=== PATIENT | female | born 1955 | race Caucasian/White ===

== ENCOUNTER 2018-12-27 10:50 | Emergency (ER) | payer MEDICARE, OTHER ==
[~2018-12-27] VITALS: Ht 162.6 cm; Wt 99.8 kg
[2018-12-27] MEDS ORDERED: Aspir 8181 MG PO (11:30)
[2018-12-27] MEDS ORDERED: OXYB5 PO (11:30)
[2018-12-27] MEDS ORDERED: ATOR10 PO (11:31)
[2018-12-27] MEDS ORDERED: MELA3 PO (11:31)
[2018-12-27] MEDS ORDERED: PARO20 PO (11:32)
[2018-12-27] MEDS ORDERED: QUET25 PO ×2 (11:34→11:35)
[2018-12-27] MEDS ORDERED: CARV25 PO (11:36)
[2018-12-27] MEDS ORDERED: BACL10 PO (11:36)
[2018-12-27] MEDS ORDERED: CYCL10 PO (11:37)
[2018-12-27] MEDS ORDERED: BUSP10 PO (11:37)
[2018-12-27] MEDS ORDERED: GABA800 PO (11:38)
[2018-12-27] MEDS ORDERED: FAMO20 PO (11:38)
[2018-12-27] MEDS ORDERED: HYDRA25 PO (11:39)
[2018-12-27] MEDS ORDERED: IBUP400 PO (11:39)
[2018-12-27] MEDS ORDERED: Norco 10-325 T1 EACH PO (11:40)
[2018-12-27] MEDS ORDERED: ONDA4ODT MM (11:40)
[2018-12-27] MEDS ORDERED: MIRALAX17 GM PO (11:40)
== END 2018-12-27 12:25 | disposition home or self-care (01) ==
LOC: ER 10:50
DX: F91.9 Conduct disorder, unspecified (principal); F17.200 Nicotine dependence, unspecified, uncomplicated; Z88.0 Allergy status to penicillin; Z88.8 Allergy status to other drugs, medicaments and biological substances; Z88.1 Allergy status to other antibiotic agents; Z79.899 Other long term (current) drug therapy; Z79.82 Long term (current) use of aspirin; Z79.891 Long term (current) use of opiate analgesic
CPT/HCPCS: 99283

== ENCOUNTER 2018-12-27 16:10 | Observation (INO) | payer MEDICARE, OTHER ==
[~2018-12-27] VITALS: Ht 167.6 cm; Wt 98.2 kg
[~2018-12-27 16:10] MED LIST: ATOR10 PO; Aspir 8181 MG PO; BACL10 PO; BUSP10 PO; CARV25 PO; CYCL10 PO; FAMO20 PO; GABA800 PO; HYDRA25 PO; IBUP400 PO; MELA3 PO; MIRALAX17 GM PO; Norco 10-325 T1 EACH PO; ONDA4ODT MM; OXYB5 PO; PARO20 PO; QUET25 PO
[2018-12-27 17:46] LABS: BASOPHILS ABSOLUTE AUTO 0.05 K/mm3 (0.00-0.23); BASOPHILS PERCENT AUTO 1 % (0-2); EOSINOPHILS ABSOLUTE AUTO 0.04 K/mm3 (0.00-0.68); EOSINOPHILS PERCENT AUTO 0 % (0-6); Hematocrit 45.9 % (33.0-51.0); Hemoglobin 15.2 g/dL (11.5-16.0); IMMATURE GRAN ABSOLUTE AUTO 0.05 K/mm3 (0.00-0.10); IMMATURE GRAN PERCENT AUTO 1 % (0-1); LYMPHOCYTES ABSOLUTE AUTO 1.63 K/mm3 (0.84-5.20); LYMPHOCYTES PERCENT AUTO 16 % (21-46); MONOCYTES ABSOLUTE AUTO 0.67 K/mm3 (0.16-1.47); MONOCYTES PERCENT AUTO 6 % (4-13); Mean Corpuscular HGB 28.9 pg (26.0-34.0); Mean Corpuscular HGB Conc 33.1 g/dL (31.5-36.5); Mean Corpuscular Volume 87 fL (80-100); Mean Platelet Volume 10.2 fL (9.1-12.4); NEUTROPHILS ABSOLUTE AUTO 8.01 K/mm3 (1.96-9.15); NEUTROPHILS PERCENT AUTO 77 % (41-73); Platelet Count 164 K/mm3 (150-400); RDW Standard Deviation 41.1 fL (35.1-46.3); Red Blood Cell Count 5.26 M/mm3 (3.80-5.20); White Blood Cell Count 10.45 K/mm3 (4.00-11.30)
[2018-12-27 18:04] LABS: Source, Urine Catheter
[2018-12-27 18:07] LABS: Ethanol (Alcohol), Blood, Med <3 mg/dL; Salicylate 1.9 mg/dL (2.8-20.0)
[2018-12-27 18:08] LABS: Alanine Aminotransfer (ALT/SGP 17 U/L (12-78); Albumin/Globulin Ratio 0.9 (0.8-1.8); Alk Phos 100 U/L (50-136); Anion Gap 6 mmol/L (6-16); Aspartate Aminotrans (AST/SGOT 20 U/L (12-37); Bilirubin, Total 0.4 mg/dL (0.1-1.0); Blood Urea Nitrogen 13 mg/dL (8-24); Bun/Creatinine Ratio 19.8 (12.0-20.0); CO2, Blood 27 mmol/L (21-32); Calcium, Blood 9.9 mg/dL (8.5-10.1); Chloride, Blood 108 mmol/L (98-108); Creatinine, Blood 0.66 mg/dL (0.40-1.00); Globulin, Blood 4.7 g/dL (2.2-4.0); Glomerular Filtration Rate >60 (60-); Glucose, Blood 116 mg/dL (70-99); Potassium, Blood 3.9 mmol/L (3.5-5.5); Sodium, Blood 141 mmol/L (136-145); Total Protein, Blood 8.7 g/dL (6.4-8.2)
[2018-12-27 18:18] LABS: Acetaminophen, Random <2.0 ug/mL (10.0-30.0)
[2018-12-27 18:41] LABS: U Amphetamine Screen Not Detected; U Barbituate Screen Not Detected; U Benzodiazapine Screen Not Detected; U Buprenorphine Screen Not Detected; U Cannabinoids Screen Not Detected; U Cocaine Screen Not Detected; U Methadone Screen Not Detected; U Methamphetamine Screen Not Detected; U Opiates Screen DETECTED; U Oxycodone Screen Not Detected; U Phencyclidine Screen Not Detected; U Propoxyphene Screen Not Detected
[2018-12-27 18:47] LABS: Bilirubin, Urine Neg (Neg); Blood, Urine 4+ (Neg); Glucose Qualitative, Urine Neg (Neg); Ketones, Urine Neg (Neg); Leukocyte Esterase, Urine 1+ (Neg); Nitrite, Urine Neg (Neg); Protein, Urine 3+ (Neg); Urobilinogen, Urine NORM (Normal)
[2018-12-27 18:53] LABS: Appearance, Urine Hazy (Clear); Color, Urine Yellow (P-Yellow)
[2018-12-27 18:54] LABS: Bacteria Mod /hpf; Squamous Epithelial Cells Few /hpf (Few)
[2018-12-28 01:11] LABS: Source, Urine Catheter
--- NOTE | 2018-12-28 01:28 | NUR ---
ADMIT NOTE: PT ARRIVED TO UNIT VIA GURNEY AT APPRX 2039. PT WITH HTN AND TACHYCARDIA, PACED RHYTHM 120'S. . DR. MANSFIELD AT BEDSIDE UPON ADMIT. PT WAS AT FIRST COOPERATIVE BUT WAS PARANOID AND LEARY OF STAFF. PT WAS WITH RAPID NON-SENSICAL SPEECH AND FREQUENTLY TALKED ABOUT DIFFERENT WAYS OF DYING. PT REPEATED THAT SHE DIDN'T WANT HER DAUGHTER TO WATCH HER . THIS RN AND COMPRESSOR MECHANIC SPENT SEVERAL MINUTES TRYING TO CONSOLE PT AND REDIRECTION. PT WAS ASSISTED UP TO BSC SHORTLY AFTER ADMIT BUT DEMANDED TO, "SHIT ON THE BED". PT STOOD UP AND SAT ON EDGE OF BED AND REFUSED ANY HELP OR DIRECTION FROM RN'S TO ASSIST BACK INTO BED. PT PULLED APART TELE MONITOR CABLE TAB AND OXYMETER FROM HER HAND. WITH COMPRESSOR MECHANIC AND THIS RN WAS ABLE TO ADMINISTER HALDOL AND HYDRALAZINE WITH NO IMPROVEMENT IN AGITATION NOR BP. PT EVENTUALLY ALLOWED THESE TWO RN'S TO ASSIST PT BACK INTO BED BUT PT, AGAIN, BECAME VERY AGITATED AND BEGAN PULLING OFF LINES AND TRIED BITING STAFF. A KATIE MEEK WAS CALLED, SECURITY AND STAFF ASSIST. DR. MARIE NOTIFIED. PT CHANGE TO ICU STATUS AND WAS PLACED ON PRECEDEX gtt. PRECEDEX TITRATED FROM 2mcg/kg/hr TO 5mcg/kg/hr WITH SOME IMPROVEMENT TO PT AGITATION. PT VERBALIZED SINCE ADMIT THE NEED TO URINATE BUT WITH HER CONFUSION AND AGITATION WOULD/COULD NOT USE BEDPAN. BARRIGA CATHETER WAS ORDERED AND ATTMEPTED PLACEMENT, HOWEVER, PT TRIED KICKING AT THIS RN AND COMPRESSOR MECHANIC. PT WAS GIVEN ATIVAN 2mg AND WAS LATER LESS AGITATED AND WAS DIRECTABLE. BARRIGA CATHETER PLACED WITH DARK YELLOW SLIGHTLY CLOUDY URINE OUT. U/A SENT PER PROTOCOL. CURRENTLY PT SLEEPING, PRECEDEX TITRATED DOWN TO 4mcg/kg/hr. VSS. CALL LIGHT NEXT TO HAND. WILL CONTINUE TO MONITOR.
[2018-12-28 01:29] LABS: Bilirubin, Urine Neg (Neg); Blood, Urine 4+ (Neg); Glucose Qualitative, Urine Neg (Neg); Ketones, Urine 1+ (Neg); Leukocyte Esterase, Urine Neg (Neg); Nitrite, Urine Neg (Neg); Protein, Urine 2+ (Neg); Urobilinogen, Urine NORM (Normal)
[2018-12-28 01:31] LABS: Appearance, Urine Clear (Clear); Color, Urine Pale Yellow (P-Yellow)
[2018-12-28 01:32] LABS: Bacteria Few /hpf; Squamous Epithelial Cells Few /hpf (Few); White Blood Cells, Urine 0-2 /hpf (0-5)
[2018-12-28 04:06] LABS: Hematocrit 43.5 % (33.0-51.0); Hemoglobin 14.4 g/dL (11.5-16.0); Mean Corpuscular HGB 29.1 pg (26.0-34.0); Mean Corpuscular HGB Conc 33.1 g/dL (31.5-36.5); Mean Corpuscular Volume 88 fL (80-100); Mean Platelet Volume 10.2 fL (9.1-12.4); Platelet Count 146 K/mm3 (150-400); Red Blood Cell Count 4.94 M/mm3 (3.80-5.20); White Blood Cell Count 9.46 K/mm3 (4.00-11.30)
[2018-12-28 04:31] LABS: Alanine Aminotransfer (ALT/SGP 18 U/L (12-78); Albumin, Blood 3.6 g/dL (3.4-5.0); Albumin/Globulin Ratio 0.8 (0.8-1.8); Alk Phos 87 U/L (50-136); Anion Gap 6 mmol/L (6-16); Aspartate Aminotrans (AST/SGOT 13 U/L (12-37); Bilirubin, Total 0.5 mg/dL (0.1-1.0); Blood Urea Nitrogen 12 mg/dL (8-24); Bun/Creatinine Ratio 18.9 (12.0-20.0); CO2, Blood 27 mmol/L (21-32); Calcium, Blood 9.2 mg/dL (8.5-10.1); Chloride, Blood 109 mmol/L (98-108); Creatinine, Blood 0.63 mg/dL (0.40-1.00); Globulin, Blood 4.3 g/dL (2.2-4.0); Glomerular Filtration Rate >60 (60-); Glucose, Blood 115 mg/dL (70-99); Potassium, Blood 3.4 mmol/L (3.5-5.5); Sodium, Blood 142 mmol/L (136-145); Total Protein, Blood 7.9 g/dL (6.4-8.2)
--- NOTE | 2018-12-28 04:52 | NUR ---
PT QUIETLY SLEEPING REST OF NOC SINCE PRECEDEX AND ATIVAN ADMIN. PRECEDEX CURRENTLY AT 0.3mcg/kg/hr. PT ANSWERS TO NAME BUT STATES, "WAIT A MINUTE" WHEN ASKED TO OPEN EYES. ITA. VSS. TEMP 97.9
--- NOTE | 2018-12-28 06:11 | NUR ---
PRECEDEX TITRATE TO 2mcg/kg/hr: AT 0500, PRECEDEX TITRATED DOWN. PT AWAKENED AND WAS PLEASANT BUT COULD NOT ANSWER QUESTIONS APPROPRIATELY. PT STATED HER DOG'S NAMES THEN FELL ASLEEP. VSS.
--- NOTE | 2018-12-28 08:30 | NUR ---
ASSUMED CARE: REPORT RECEIVED FROM BRIAN Cooper RN. ASSUMED CARE OF THIS PT AT APPROX 0700. ON ASSESSMENT, THE PT IS NOW PLEASANT, COOPERATIVE & ANSWERING QUESTIONS APPROPRIATELY. BILAT SOFT WRIST RESTRAINTS REMOVED AT 0800. PT IS AGREEABLE TO RESTRAINTS BEING REMOVED & VERBALIZES UNDERSTANDING THAT THEY WILL NEED TO BE REPLACED IF SHE AGAIN ATTEMPTS TO REMOVE MONITORS, PIVs OR VERBALLY THREATENS STAFF MEMBERS. LS ARE DIM IN BASES, PT ON RA W/ O2 SATS > 92%. MONITOR SHOWS SR-ST W/ HR 80-100s, BP SLIGHTLY LOW THIS AM & PRECEDEX HAS BEEN PLACED ON STANDBY. PT HAS NO GI COMPLAINTS, BARRIGA PATENT/ DRAINING. WILL CONTINUE TO MONITOR & UPDATE NEEDED.
--- NOTE | 2018-12-28 14:15 | NUR ---
DR ROSENBERG: PROVIDER AT BEDSIDE TO SEE PT. THE PT IS A&O TO TIME, DATE, SELF & STAFF, CONFUSED REGARDING LOCATION. PROVIDER FEELS THAT THE PT HAS IMPROVED & CAN NOW BE MEDICAL STATUS W/ NO TELE, ORDERS PLACED. WILL CONTINUE TO MONITOR & UPDATE NEEDED.
--- NOTE | 2018-12-28 17:12 | NUR ---
SHIFT SUMMARY: NO ACUTE CHANGES SINCE PRIOR UPDATES. PT REMAINS MOSTLY A&O, FORGETFUL TO LOCATION & NEEDING OCCASIONAL REORIENTATION. SHE DOES NOT REMEMBER COMING TO THE HOSPITAL OR THE EVENTS PRIOR TO ADMISSION THAT OCCURED AT [facility]. RESTRAINTS HAVE BEEN OFF SINCE 0800 THIS AM & PT HAS TOLERATED WELL, NOT PULLING AT LINES/ TUBES OR ATTEMPTING TO GET OOB W/O ASSIST. LS ARE CLEAR T/O, PT ON RA W/ O2 SATS > 92%. HEART MONITOR HAS BEEN REMOVED PT IS NOW MEDICAL STATUS. BP REMAINS STABLE. BT x4, PT HAS HAD NUMEROUS SOFT BMs WHICH SHE STS IS "NORMAL" FOR HER. BARRIGA REMOVED THIS AFTERNOON & PT VOIDING W/O DIFFICULTY USING BSC & SBA TO GET OOB. WILL CONTINUE TO MONITOR & REPORT OFF TO ONCOMING RN.
--- NOTE | 2018-12-28 23:04 | NUR ---
ASSUMED CARE OF PT, REPORT RCV'D FROM YOON WOMACK. PT ALERT TO SELF, CONFUSED ON DATE/LOCATION/SITUATION, OFTEN FORGETFUL AND PARANOID. PT BELIEVES SHE IS IN "[place]", BELIEVES THAT IT IS "FEBRUARY" AND ISN'T SURE WHY SHE IS "HERE". PT REORIENTED BUT QUICKLY FORGETS. PT FIXATED ON HER CLOTHES AND BELIEVES THAT SOMEONE "STOLE THEM". PT REMINDED THAT SHE CAME FROM [facility]. PT ASKING FOR PAIN MEDICATION D/T CHRONIC HEADACHE, REMINDED THAT SHE CAN HAVE HER NEXT PAIN PILL AT MIDNIGHT, PT QUICKLY FORGETS AND ASKS AGAIN. PT STANDBY ASSIST TO USE TOILET, PT APPEARS STEADY ON HER FEET, USES WALKER. PT REMINDED TO USE CALL LIGHT FOR ASSISTANCE WITH AMBULATING, PT APPEARS IMPULSIVE. BED IN LOW/LOCKED POSITION AND BED EXIT ALARM ON. VSS. PLEASE SEE FULL SHIFT ASSESSMENT.
[2018-12-29 05:20] LABS: BASOPHILS ABSOLUTE AUTO 0.06 K/mm3 (0.00-0.23); BASOPHILS PERCENT AUTO 1 % (0-2); EOSINOPHILS ABSOLUTE AUTO 0.12 K/mm3 (0.00-0.68); EOSINOPHILS PERCENT AUTO 1 % (0-6); Hematocrit 43.8 % (33.0-51.0); Hemoglobin 14.3 g/dL (11.5-16.0); IMMATURE GRAN ABSOLUTE AUTO 0.03 K/mm3 (0.00-0.10); IMMATURE GRAN PERCENT AUTO 0 % (0-1); LYMPHOCYTES PERCENT AUTO 37 % (21-46); MONOCYTES ABSOLUTE AUTO 0.91 K/mm3 (0.16-1.47); MONOCYTES PERCENT AUTO 11 % (4-13); Mean Corpuscular HGB 29.5 pg (26.0-34.0); Mean Corpuscular HGB Conc 32.6 g/dL (31.5-36.5); NEUTROPHILS PERCENT AUTO 50 % (41-73); Platelet Count 155 K/mm3 (150-400); RDW Coefficient Variation 13.1 % (11.7-14.2); RDW Standard Deviation 42.7 fL (35.1-46.3); Red Blood Cell Count 4.84 M/mm3 (3.80-5.20); White Blood Cell Count 8.42 K/mm3 (4.00-11.30)
[2018-12-29 05:21] LABS: Mean Corpuscular Volume 91 fL (80-100)
[2018-12-29 05:35] LABS: Albumin, Blood 3.7 g/dL (3.4-5.0); Anion Gap 5 mmol/L (6-16); Blood Urea Nitrogen 15 mg/dL (8-24); Bun/Creatinine Ratio 19.9 (12.0-20.0); CO2, Blood 26 mmol/L (21-32); Calcium, Blood 9.2 mg/dL (8.5-10.1); Chloride, Blood 110 mmol/L (98-108); Creatinine, Blood 0.76 mg/dL (0.40-1.00); Glomerular Filtration Rate >60 (60-); Glucose, Blood 98 mg/dL (70-99); Phosphorus, Blood 3.9 mg/dL (2.5-4.9); Potassium, Blood 3.7 mmol/L (3.5-5.5); Sodium, Blood 141 mmol/L (136-145)
--- NOTE | 2018-12-29 07:25 | NUR ---
SHIFT SUMMARY NO ACUTE CHANGES OVERNIGHT. PT REMAINS CONFUSED AND ORIENTED ONLY TO SELF. PT COOPERATIVE WITH CARE, PLEASANT AND REDIRECTABLE. PT ABLE TO AMBULATE WITH SBA TO USE TOILET. PT USES WALKER AND IS STEADY ON HER FEET. VSS T/O SHIFT. WILL REPORT TO DAYSHIFT NURSE.
--- NOTE | 2018-12-29 07:54 | NUR ---
ASSUMED CARE OF PT. PT IS SLEEPING AT THIS TIME. OPENING EYES TO VOICE. PT CLAIMED THAT SHE HAS NOT SLEPT LAST NIGHT. ORIENTED TO SELF, LOCATION AND TIME.
--- NOTE | 2018-12-29 13:18 | NUR ---
PT SEEN BY DR. SHAKIRA Garcia UPDATED HER OF PT'S STATUS.
--- NOTE | 2018-12-29 16:38 | NUR ---
DR. ANDERSON CAME BY TO TALK TO THE FAMILY.
--- NOTE | 2018-12-29 17:44 | NUR ---
REPORT GIVEN TO ROSANGELA PANIAGUA WILL BE TRANSFERED TO ROOM 348.
--- NOTE | 2018-12-29 19:21 | NUR ---
SHIFT SUMMARY: PT WAS TRANSFERED TO ROOM 348 @ 1805. PT IS STILL FORGETFUL AT TIMES BUT MOSTLY ORIENTED. AWAITING FOR PLACEMENT.PT'S GROUP DIRECTOR, JAYSON WITH [facility] HAS TRIED TO [facility]S GROUP DIRECTOR TO ARRANGE FOR PT PLACEMENT. SPOKE WITH SHRUTHI GASCA TO CALL JAYSON TOMORROW AND DISCUSS PT'S PLACEMENT. PT HAS BEEN COOPERATIVE THE WHOLE DAY. VERY PLEASANT AND USES HER CALL LIGHT APPROPRIATELY. PT HAS BEEN STEADY ON HER FEET USING A WALKER.
--- NOTE | 2018-12-30 12:37 | NUR ---
FACILITY DISCHARGE DISCHARGE PACKET GIVEN TO SOCIAL WORK CASE MANAGER. PATIENT DISCHARGED TO [facility]. REPORT CALLED TO RECIEVING NURSE. PATIENT TRANSPORTED VIA WHEELCHAIR TRANSPORT. IV'S REMOVED WITHOUT DIFFICULTY.
== END 2018-12-30 12:15 ==
LOC: ER 16:10 → ICUW 16:11 → ICUE 16:11 → MEDS 12-29 18:14 → ENPENDDIS 12-30 11:14 → MEDS 12-30 12:15
PROVIDERS: Emergency Medicine; Family Medicine; ADMIT Internal Medicine
DX: F23 Brief psychotic disorder (principal); G93.40 Encephalopathy, unspecified; I10 Essential (primary) hypertension; E78.5 Hyperlipidemia, unspecified; E87.6 Hypokalemia; F32.9 Major depressive disorder, single episode, unspecified; K21.9 Gastro-esophageal reflux disease without esophagitis; G62.9 Polyneuropathy, unspecified; Z79.82 Long term (current) use of aspirin; Z79.899 Other long term (current) drug therapy; Z88.0 Allergy status to penicillin; Z88.6 Allergy status to analgesic agent; Z88.1 Allergy status to other antibiotic agents; Z88.8 Allergy status to other drugs, medicaments and biological substances; Z86.79 Personal history of other diseases of the circulatory system; Z98.2 Presence of cerebrospinal fluid drainage device
CPT/HCPCS: 36415; 51702; 70250; 70450; 71045; 74018; 80053; 80069; 81001; 84145; 85025; 85027; 87086; 87147; 93005; 93010; 96365; 96372; 96375; 96376; 99285-25; G0378; G0480; J0360; J0696; J1630; J1650; J2060; J2250; J3480; J3486; J7030; J7050

== ENCOUNTER → 2019-06-09 | Outpatient (CLI) | payer MEDICARE, OTHER ==
[2019-06-09 11:21] LABS: CHOL/HDL RATIO 6.2; Cholesterol 154 mg/dL (50-200); HDL Cholesterol 25 mg/dL (>39); LDL/HDL RATIO Unable to Calculate; Low Density Lipoprotein Chol Unable to Calculate mg/dL (0-110); Triglycerides 440 mg/dL (30-160); Very Low Density Lipoprot Chol Unable to Calculate mg/dL (6-32)
== END | disposition home or self-care (01) ==
LOC: LAB UVN 07:48 → EDSTATUS 12:59
PROVIDERS: Family Medicine
DX: E78.5 Hyperlipidemia, unspecified (principal)
CPT/HCPCS: 36415; 80061

== ENCOUNTER → 2019-12-03 | Outpatient (CLI) | payer MEDICARE, OTHER ==
[2019-12-03 11:42] LABS: Anion Gap 6 mmol/L (6-16); Blood Urea Nitrogen 13 mg/dL (8-24); Bun/Creatinine Ratio 18.1 (12.0-20.0); CO2, Blood 31 mmol/L (21-32); Chloride, Blood 109 mmol/L (98-108); Creatinine, Blood 0.72 mg/dL (0.40-1.00); Glomerular Filtration Rate >60 (60-); Glucose, Blood 127 mg/dL (70-99); Potassium, Blood 3.6 mmol/L (3.5-5.5); Sodium, Blood 146 mmol/L (136-145)
== END | disposition home or self-care (01) ==
LOC: LAB UVN 10:38 → EDSTATUS 11:14
PROVIDERS: Family Medicine
DX: Z13.1 Encounter for screening for diabetes mellitus (principal); I11.0 Hypertensive heart disease with heart failure; I50.42 Chronic combined systolic (congestive) and diastolic (congestive) heart failure; R73.9 Hyperglycemia, unspecified
CPT/HCPCS: 80048; 83036

== ENCOUNTER → 2020-04-27 | Outpatient (CLI) | payer MEDICARE, OTHER ==
[~2020-04-27] MED LIST changes: +AMLO5 PO; +ASPI81CH PO; +Aspercreme He70.8 GM TOP; +Ativan1 MG PO; +BISA5EC PO; +CARV6.25 PO; +CEFP200 PO; +CYCLOBENZAPRINE5 MG PO; +GABA300 PO; -GABA800 PO; +HYDR1TAB94 PO; +LIDOCAINE1 EAC1 TOP; +NYSTATIN15 GM TOP; -Norco 10-325 T1 EACH PO; +OLANZAPINE PO; +PARO10 PO; -PARO20 PO; +Seroquel Xr50 MG PO; +TEGRETOL PO; +VRAYLAR3 MG PO; +ZEBUTAL 50-3251 EAC1 PO
[2020-04-27 10:49] LABS: Appearance, Urine Hazy (Clear); Bilirubin, Urine Neg (Neg); Blood, Urine 3+ (Neg); Color, Urine Yellow (P-Yellow); Glucose Qualitative, Urine Neg (Neg); Ketones, Urine Neg (Neg); Leukocyte Esterase, Urine 3+ (Neg); Nitrite, Urine Pos (Neg); Protein, Urine 2+ (Neg); Specific Gravity, Urine 1.015 (1.003-1.022); Urobilinogen, Urine NORM (Normal)
[2020-04-27 11:06] LABS: Bacteria Many /hpf; Red Blood Cells, Urine 0-2 /hpf (0-2); Squamous Epithelial Cells Few /hpf (Few)
== END | disposition home or self-care (01) ==
LOC: LAB UVN 10:22 → EDSTATUS 13:04
PROVIDERS: Family Medicine
DX: N39.0 Urinary tract infection, site not specified (principal)
CPT/HCPCS: 81001; 87077; 87086; 87186

== ENCOUNTER → 2020-05-09 | Outpatient (CLI) | payer MEDICARE, OTHER ==
[2020-05-09 07:20] LABS: BASOPHILS ABSOLUTE AUTO 0.07 K/mm3 (0.00-0.23); BASOPHILS PERCENT AUTO 1 % (0-2); EOSINOPHILS ABSOLUTE AUTO 0.12 K/mm3 (0.00-0.68); EOSINOPHILS PERCENT AUTO 2 % (0-6); Hematocrit 39.2 % (33.0-51.0); IMMATURE GRAN ABSOLUTE AUTO 0.04 K/mm3 (0.00-0.10); IMMATURE GRAN PERCENT AUTO 1 % (0-1); LYMPHOCYTES ABSOLUTE AUTO 2.22 K/mm3 (0.84-5.20); LYMPHOCYTES PERCENT AUTO 29 % (21-46); MONOCYTES ABSOLUTE AUTO 0.73 K/mm3 (0.16-1.47); MONOCYTES PERCENT AUTO 10 % (4-13); Mean Corpuscular HGB 30.4 pg (26.0-34.0); Mean Corpuscular HGB Conc 33.2 g/dL (31.5-36.5); Mean Corpuscular Volume 92 fL (80-100); Mean Platelet Volume 10.4 fL (9.1-12.4); NEUTROPHILS PERCENT AUTO 59 % (41-73); Platelet Count 191 K/mm3 (150-400); RDW Standard Deviation 42.6 fL (35.1-46.3); Red Blood Cell Count 4.28 M/mm3 (3.80-5.20); White Blood Cell Count 7.68 K/mm3 (4.00-11.30)
[2020-05-09 07:34] LABS: Anion Gap 4 mmol/L (6-16); Blood Urea Nitrogen 6 mg/dL (8-24); Bun/Creatinine Ratio 9.1 (12.0-20.0); CO2, Blood 30 mmol/L (21-32); Calcium, Blood 8.4 mg/dL (8.5-10.1); Chloride, Blood 110 mmol/L (98-108); Creatinine, Blood 0.66 mg/dL (0.40-1.00); Glomerular Filtration Rate >60 (60-); Glucose, Blood 106 mg/dL (70-99); Potassium, Blood 3.8 mmol/L (3.5-5.5); Sodium, Blood 144 mmol/L (136-145)
== END | disposition home or self-care (01) ==
LOC: LAB UVN 07:11 → EDSTATUS 13:05
PROVIDERS: Family Medicine
DX: F31.62 Bipolar disorder, current episode mixed, moderate (principal)
CPT/HCPCS: 80048; 85025; 86038

== ENCOUNTER → 2020-05-13 | Outpatient (CLI) | payer MEDICARE, OTHER ==
[2020-05-13 06:03] LABS: Source, Urine Clean Catch
[2020-05-13 06:10] LABS: BASOPHILS ABSOLUTE AUTO 0.07 K/mm3 (0.00-0.23); BASOPHILS PERCENT AUTO 1 % (0-2); EOSINOPHILS ABSOLUTE AUTO 0.13 K/mm3 (0.00-0.68); EOSINOPHILS PERCENT AUTO 1 % (0-6); Hematocrit 44.2 % (33.0-51.0); Hemoglobin 14.3 g/dL (11.5-16.0); IMMATURE GRAN ABSOLUTE AUTO 0.06 K/mm3 (0.00-0.10); IMMATURE GRAN PERCENT AUTO 1 % (0-1); LYMPHOCYTES ABSOLUTE AUTO 2.49 K/mm3 (0.84-5.20); LYMPHOCYTES PERCENT AUTO 26 % (21-46); MONOCYTES ABSOLUTE AUTO 0.92 K/mm3 (0.16-1.47); MONOCYTES PERCENT AUTO 10 % (4-13); Mean Corpuscular HGB 29.9 pg (26.0-34.0); Mean Corpuscular HGB Conc 32.4 g/dL (31.5-36.5); Mean Corpuscular Volume 92 fL (80-100); Mean Platelet Volume 10.8 fL (9.1-12.4); NEUTROPHILS ABSOLUTE AUTO 5.88 K/mm3 (1.96-9.15); NEUTROPHILS PERCENT AUTO 62 % (41-73); Platelet Count 189 K/mm3 (150-400); RDW Coefficient Variation 12.8 % (11.7-14.2); Red Blood Cell Count 4.79 M/mm3 (3.80-5.20); White Blood Cell Count 9.55 K/mm3 (4.00-11.30)
[2020-05-13 06:17] LABS: Bilirubin, Urine Neg (Neg); Blood, Urine 2+ (Neg); Glucose Qualitative, Urine Neg (Neg); Ketones, Urine Neg (Neg); Leukocyte Esterase, Urine Neg (Neg); Nitrite, Urine Neg (Neg); Protein, Urine 1+ (Neg); Urobilinogen, Urine NORM (Normal); pH, Urine 6.5 (5.0-8.0)
[2020-05-13 06:31] LABS: Anion Gap 10 mmol/L (6-16); Blood Urea Nitrogen 10 mg/dL (8-24); Bun/Creatinine Ratio 15.1 (12.0-20.0); CO2, Blood 27 mmol/L (21-32); Calcium, Blood 9.3 mg/dL (8.5-10.1); Chloride, Blood 108 mmol/L (98-108); Creatinine, Blood 0.66 mg/dL (0.40-1.00); Glomerular Filtration Rate >60 (60-); Glucose, Blood 95 mg/dL (70-99); Potassium, Blood 3.9 mmol/L (3.5-5.5); Sodium, Blood 145 mmol/L (136-145)
[2020-05-13 06:39] LABS: Appearance, Urine Clear (Clear); Bacteria Not Seen /hpf; Color, Urine Yellow (P-Yellow); Red Blood Cells, Urine 0-2 /hpf (0-2); Squamous Epithelial Cells Not Seen /hpf (Few); White Blood Cells, Urine Not Seen /hpf (0-5)
== END | disposition home or self-care (01) ==
LOC: LAB UVN 06:00 → EDSTATUS 13:07
PROVIDERS: Family Medicine
DX: F31.62 Bipolar disorder, current episode mixed, moderate (principal)
CPT/HCPCS: 80048; 81001; 85025

== ENCOUNTER 2020-05-18 20:32 | Emergency (ER) | payer MEDICARE, OTHER ==
[~2020-05-18] VITALS: Ht 165.1 cm; Wt 104.3 kg
[~2020-05-18 20:32] MED LIST changes: -AMLO5 PO; -ASPI81CH PO; -Aspercreme He70.8 GM TOP; -Aspir 8181 MG PO; -Ativan1 MG PO; -BISA5EC PO; -CARV25 PO; -CARV6.25 PO; -CEFP200 PO; -CYCLOBENZAPRINE5 MG PO; -GABA300 PO; -HYDR1TAB94 PO; -LIDOCAINE1 EAC1 TOP; -NYSTATIN15 GM TOP; -OLANZAPINE PO; -PARO10 PO; -Seroquel Xr50 MG PO; -TEGRETOL PO; -VRAYLAR3 MG PO; -ZEBUTAL 50-3251 EAC1 PO
[2020-05-18 21:01] LABS: BASOPHILS ABSOLUTE AUTO 0.04 K/mm3 (0.00-0.23); BASOPHILS PERCENT AUTO 0 % (0-2); EOSINOPHILS ABSOLUTE AUTO 0.08 K/mm3 (0.00-0.68); EOSINOPHILS PERCENT AUTO 1 % (0-6); Hematocrit 41.8 % (33.0-51.0); Hemoglobin 13.8 g/dL (11.5-16.0); IMMATURE GRAN ABSOLUTE AUTO 0.04 K/mm3 (0.00-0.10); IMMATURE GRAN PERCENT AUTO 0 % (0-1); LYMPHOCYTES ABSOLUTE AUTO 1.58 K/mm3 (0.84-5.20); LYMPHOCYTES PERCENT AUTO 17 % (21-46); MONOCYTES ABSOLUTE AUTO 0.65 K/mm3 (0.16-1.47); MONOCYTES PERCENT AUTO 7 % (4-13); Mean Corpuscular HGB 29.9 pg (26.0-34.0); Mean Corpuscular Volume 91 fL (80-100); NEUTROPHILS ABSOLUTE AUTO 7.09 K/mm3 (1.96-9.15); NEUTROPHILS PERCENT AUTO 75 % (41-73); Platelet Count 170 K/mm3 (150-400); RDW Coefficient Variation 12.7 % (11.7-14.2); RDW Standard Deviation 41.8 fL (35.1-46.3); Red Blood Cell Count 4.61 M/mm3 (3.80-5.20); White Blood Cell Count 9.48 K/mm3 (4.00-11.30)
[2020-05-18] MEDS ORDERED: HYDR1TAB94 PO (21:06)
[2020-05-18] MEDS ORDERED: CARV6.25 PO (21:06)
[2020-05-18] MEDS ORDERED: PARO10 PO (21:08)
[2020-05-18] MEDS ORDERED: OLANZAPINE PO (21:08)
[2020-05-18] MEDS ORDERED: CYCLOBENZAPRINE5 MG PO (21:09)
[2020-05-18] MEDS ORDERED: Aspir 8181 MG PO (21:10)
[2020-05-18 21:14] LABS: Alanine Aminotransfer (ALT/SGP 18 U/L (12-78); Albumin, Blood 3.3 g/dL (3.4-5.0); Albumin/Globulin Ratio 0.8 (0.8-1.8); Alk Phos 95 U/L (50-136); Anion Gap 7 mmol/L (6-16); Aspartate Aminotrans (AST/SGOT 12 U/L (12-37); Bilirubin, Total 0.3 mg/dL (0.1-1.0); Blood Urea Nitrogen 10 mg/dL (8-24); Bun/Creatinine Ratio 13.7 (12.0-20.0); CO2, Blood 28 mmol/L (21-32); Calcium, Blood 8.7 mg/dL (8.5-10.1); Chloride, Blood 109 mmol/L (98-108); Creatinine, Blood 0.73 mg/dL (0.40-1.00); Globulin, Blood 4.4 g/dL (2.2-4.0); Glomerular Filtration Rate >60 (60-); Glucose, Blood 113 mg/dL (70-99); Potassium, Blood 3.6 mmol/L (3.5-5.5); Sodium, Blood 144 mmol/L (136-145); Total Protein, Blood 7.7 g/dL (6.4-8.2)
[2020-05-18] MEDS ORDERED: TEGRETOL PO (22:35)
[2020-05-18] MEDS ORDERED: GABA300 PO (22:36)
[2020-05-18] MEDS ORDERED: Aspercreme He70.8 GM TOP (22:37)
[2020-05-18 23:08] LABS: Source, Urine Catheter
[2020-05-18 23:11] LABS: Bilirubin, Urine Neg (Neg); Blood, Urine 3+ (Neg); Glucose Qualitative, Urine Neg (Neg); Ketones, Urine Neg (Neg); Leukocyte Esterase, Urine 2+ (Neg); Nitrite, Urine Neg (Neg); Protein, Urine 1+ (Neg); Urobilinogen, Urine NORM (Normal)
[2020-05-18 23:27] LABS: Appearance, Urine Hazy (Clear); Color, Urine Yellow (P-Yellow)
[2020-05-18 23:54] LABS: Amorphous Light (0-Heavy); Bacteria Few /hpf; Mucus Light (0-Heavy); Squamous Epithelial Cells Few /hpf (Few)
== END 2020-05-19 00:40 ==
LOC: ER 20:32
PROVIDERS: Emergency Medicine
DX: S00.03XA Contusion of scalp, initial encounter (principal); R55 Syncope and collapse; I11.0 Hypertensive heart disease with heart failure; I50.9 Heart failure, unspecified; Z88.0 Allergy status to penicillin; Z88.1 Allergy status to other antibiotic agents; Z88.8 Allergy status to other drugs, medicaments and biological substances; W01.10XA Fall on same level from slipping, tripping and stumbling with subsequent striking against unspecified object, initial encounter
CPT/HCPCS: 70450; 80053; 81001; 85025; 87086; 93005; 93010; 99284-25

== ENCOUNTER → 2020-05-19 | Outpatient (CLI) | payer MEDICARE, OTHER ==
[~2020-05-19] MED LIST changes: +AMLO5 PO; +ASPI81CH PO; +Aspercreme He70.8 GM TOP; +Aspir 8181 MG PO; +Ativan1 MG PO; +BISA5EC PO; +CARV25 PO; +CARV6.25 PO; +CEFP200 PO; +CYCLOBENZAPRINE5 MG PO; +GABA300 PO; +HYDR1TAB94 PO; +LIDOCAINE1 EAC1 TOP; +NYSTATIN15 GM TOP; +OLANZAPINE PO; +PARO10 PO; +Seroquel Xr50 MG PO; +TEGRETOL PO; +VRAYLAR3 MG PO; +ZEBUTAL 50-3251 EAC1 PO
[2020-05-19 15:47] LABS: Carbamazepine 18.1 ug/mL (4.0-12.0)
== END ==
LOC: LAB UVN 12:00 → EDSTATUS 13:39
PROVIDERS: Nurse Practitioner Adult Health
DX: F29 Unspecified psychosis not due to a substance or known physiological condition (principal); F31.62 Bipolar disorder, current episode mixed, moderate; F23 Brief psychotic disorder; Z88.0 Allergy status to penicillin; Z88.1 Allergy status to other antibiotic agents; Z88.6 Allergy status to analgesic agent; Z88.8 Allergy status to other drugs, medicaments and biological substances
CPT/HCPCS: 80156

== ENCOUNTER 2020-05-30 16:53 | Emergency (ER) | payer MEDICARE, OTHER ==
[~2020-05-30] VITALS: Ht 165.1 cm; Wt 81.7 kg
[~2020-05-30 16:53] MED LIST changes: -AMLO5 PO; -ASPI81CH PO; -Ativan1 MG PO; -BISA5EC PO; -CARV25 PO; -CEFP200 PO; -LIDOCAINE1 EAC1 TOP; -NYSTATIN15 GM TOP; -Seroquel Xr50 MG PO; -VRAYLAR3 MG PO; -ZEBUTAL 50-3251 EAC1 PO
[2020-05-30] MEDS ORDERED: VRAYLAR3 MG PO (17:23)
[2020-05-30] MEDS ORDERED: CEFP200 PO (17:24)
[2020-05-30 17:27] LABS: BASOPHILS ABSOLUTE AUTO 0.08 K/mm3 (0.00-0.23); BASOPHILS PERCENT AUTO 1 % (0-2); EOSINOPHILS ABSOLUTE AUTO 0.16 K/mm3 (0.00-0.68); EOSINOPHILS PERCENT AUTO 1 % (0-6); Hematocrit 43.5 % (33.0-51.0); Hemoglobin 14.4 g/dL (11.5-16.0); IMMATURE GRAN ABSOLUTE AUTO 0.04 K/mm3 (0.00-0.10); IMMATURE GRAN PERCENT AUTO 0 % (0-1); LYMPHOCYTES ABSOLUTE AUTO 2.44 K/mm3 (0.84-5.20); LYMPHOCYTES PERCENT AUTO 21 % (21-46); MONOCYTES ABSOLUTE AUTO 0.87 K/mm3 (0.16-1.47); MONOCYTES PERCENT AUTO 8 % (4-13); Mean Corpuscular HGB 29.9 pg (26.0-34.0); Mean Corpuscular HGB Conc 33.1 g/dL (31.5-36.5); Mean Corpuscular Volume 90 fL (80-100); NEUTROPHILS ABSOLUTE AUTO 8.07 K/mm3 (1.96-9.15); NEUTROPHILS PERCENT AUTO 69 % (41-73); Platelet Count 213 K/mm3 (150-400); RDW Coefficient Variation 12.9 % (11.7-14.2); RDW Standard Deviation 42.2 fL (35.1-46.3); Red Blood Cell Count 4.82 M/mm3 (3.80-5.20); White Blood Cell Count 11.66 K/mm3 (4.00-11.30)
[2020-05-30 17:49] LABS: Alanine Aminotransfer (ALT/SGP 18 U/L (12-78); Albumin, Blood 3.6 g/dL (3.4-5.0); Albumin/Globulin Ratio 0.8 (0.8-1.8); Alk Phos 91 U/L (50-136); Anion Gap 7 mmol/L (6-16); Aspartate Aminotrans (AST/SGOT 17 U/L (12-37); Bilirubin, Total 0.2 mg/dL (0.1-1.0); Blood Urea Nitrogen 8 mg/dL (8-24); Bun/Creatinine Ratio 12.8 (12.0-20.0); CO2, Blood 27 mmol/L (21-32); Calcium, Blood 9.5 mg/dL (8.5-10.1); Chloride, Blood 109 mmol/L (98-108); Creatinine, Blood 0.62 mg/dL (0.40-1.00); Globulin, Blood 4.4 g/dL (2.2-4.0); Glomerular Filtration Rate >60 (60-); Glucose, Blood 119 mg/dL (70-99); Potassium, Blood 3.8 mmol/L (3.5-5.5); Sodium, Blood 143 mmol/L (136-145); Troponin I <0.015 ng/mL (0.000-0.040)
[2020-05-30 18:41] LABS: Source, Urine Catheter
[2020-05-30 18:49] LABS: Appearance, Urine Clear (Clear); Bilirubin, Urine Neg (Neg); Blood, Urine 3+ (Neg); Color, Urine Amber (P-Yellow); Glucose Qualitative, Urine Neg (Neg); Ketones, Urine Neg (Neg); Leukocyte Esterase, Urine 1+ (Neg); Nitrite, Urine Neg (Neg); Protein, Urine 1+ (Neg); Urobilinogen, Urine NORM (Normal)
[2020-05-30 19:00] LABS: Bacteria Mod /hpf; Mucus Light (0-Heavy); Squamous Epithelial Cells Few /hpf (Few)
== END 2020-05-30 22:54 | disposition home or self-care (01) ==
LOC: ER 16:53
PROVIDERS: Physician Assistant
DX: R07.89 Other chest pain (principal); I11.0 Hypertensive heart disease with heart failure; I50.9 Heart failure, unspecified; E78.5 Hyperlipidemia, unspecified; I25.10 Atherosclerotic heart disease of native coronary artery without angina pectoris; J44.9 Chronic obstructive pulmonary disease, unspecified; I48.91 Unspecified atrial fibrillation; F17.210 Nicotine dependence, cigarettes, uncomplicated; Z88.0 Allergy status to penicillin; Z88.6 Allergy status to analgesic agent; Z88.1 Allergy status to other antibiotic agents; Z88.8 Allergy status to other drugs, medicaments and biological substances; Z79.899 Other long term (current) drug therapy
CPT/HCPCS: 36415; 71045; 80053; 81001; 83690; 84484; 85025; 87086; 93005; 93010; 99285-25; P9612

== ENCOUNTER → 2020-06-04 | Outpatient (CLI) | payer MEDICARE, OTHER ==
[~2020-06-04] MED LIST changes: +AMLO5 PO; +ASPI81CH PO; +Ativan1 MG PO; +BISA5EC PO; +CARV25 PO; +CEFP200 PO; +LIDOCAINE1 EAC1 TOP; +NYSTATIN15 GM TOP; +Seroquel Xr50 MG PO; +VRAYLAR3 MG PO; +ZEBUTAL 50-3251 EAC1 PO
[2020-06-04 06:33] LABS: Source, Urine Clean Catch
[2020-06-04 06:49] LABS: Hematocrit 43.4 % (33.0-51.0); Hemoglobin 14.4 g/dL (11.5-16.0); Mean Corpuscular HGB 30.1 pg (26.0-34.0); Mean Corpuscular HGB Conc 33.2 g/dL (31.5-36.5); Mean Corpuscular Volume 91 fL (80-100); Platelet Count 221 K/mm3 (150-400); RDW Coefficient Variation 12.9 % (11.7-14.2); RDW Standard Deviation 42.3 fL (35.1-46.3); Red Blood Cell Count 4.79 M/mm3 (3.80-5.20); White Blood Cell Count 9.91 K/mm3 (4.00-11.30)
[2020-06-04 06:56] LABS: Appearance, Urine Hazy (Clear); Bilirubin, Urine Neg (Neg); Blood, Urine 4+ (Neg); Color, Urine Yellow (P-Yellow); Glucose Qualitative, Urine Neg (Neg); Ketones, Urine Neg (Neg); Leukocyte Esterase, Urine 3+ (Neg); Nitrite, Urine Neg (Neg); Protein, Urine 2+ (Neg); Urobilinogen, Urine NORM (Normal)
[2020-06-04 07:02] LABS: Anion Gap 9 mmol/L (6-16); Blood Urea Nitrogen 11 mg/dL (8-24); Bun/Creatinine Ratio 17.7 (12.0-20.0); CO2, Blood 26 mmol/L (21-32); Calcium, Blood 9.5 mg/dL (8.5-10.1); Chloride, Blood 111 mmol/L (98-108); Creatinine, Blood 0.62 mg/dL (0.40-1.00); Glomerular Filtration Rate >60 (60-); Glucose, Blood 97 mg/dL (70-99); Potassium, Blood 3.9 mmol/L (3.5-5.5); Sodium, Blood 146 mmol/L (136-145)
[2020-06-04 07:11] LABS: Bacteria Many /hpf; Calcium Oxalate Crystals Many /hpf; Squamous Epithelial Cells Mod /hpf (Few); Transitional Epithelial Cells Few /hpf (0-Rare)
== END | disposition home or self-care (01) ==
LOC: LAB UVN 06:29 → EDSTATUS 13:09
PROVIDERS: Family Medicine
DX: I11.0 Hypertensive heart disease with heart failure (principal); I50.42 Chronic combined systolic (congestive) and diastolic (congestive) heart failure; G93.49 Other encephalopathy
CPT/HCPCS: 80048; 81001; 85027; 87086; 87147

== ENCOUNTER 2020-06-05 02:16 | Observation (INO) | payer MEDICARE, OTHER ==
[~2020-06-05] VITALS: Ht 154.9 cm; Wt 93.0 kg
[~2020-06-05 02:16] MED LIST changes: -AMLO5 PO; -ASPI81CH PO; -Ativan1 MG PO; -BISA5EC PO; -CARV25 PO; -LIDOCAINE1 EAC1 TOP; -NYSTATIN15 GM TOP; -Seroquel Xr50 MG PO; -ZEBUTAL 50-3251 EAC1 PO
[2020-06-05 02:42] LABS: BASOPHILS ABSOLUTE AUTO 0.07 K/mm3 (0.00-0.23); BASOPHILS PERCENT AUTO 1 % (0-2); EOSINOPHILS ABSOLUTE AUTO 0.12 K/mm3 (0.00-0.68); EOSINOPHILS PERCENT AUTO 1 % (0-6); Hematocrit 43.3 % (33.0-51.0); Hemoglobin 14.4 g/dL (11.5-16.0); IMMATURE GRAN ABSOLUTE AUTO 0.04 K/mm3 (0.00-0.10); IMMATURE GRAN PERCENT AUTO 0 % (0-1); LYMPHOCYTES ABSOLUTE AUTO 2.13 K/mm3 (0.84-5.20); LYMPHOCYTES PERCENT AUTO 19 % (21-46); MONOCYTES ABSOLUTE AUTO 0.99 K/mm3 (0.16-1.47); MONOCYTES PERCENT AUTO 9 % (4-13); Mean Corpuscular HGB 29.4 pg (26.0-34.0); Mean Corpuscular HGB Conc 33.3 g/dL (31.5-36.5); Mean Corpuscular Volume 89 fL (80-100); Mean Platelet Volume 10.5 fL (9.1-12.4); NEUTROPHILS ABSOLUTE AUTO 7.91 K/mm3 (1.96-9.15); NEUTROPHILS PERCENT AUTO 70 % (41-73); Platelet Count 220 K/mm3 (150-400); RDW Coefficient Variation 12.9 % (11.7-14.2); RDW Standard Deviation 41.7 fL (35.1-46.3); Red Blood Cell Count 4.89 M/mm3 (3.80-5.20); White Blood Cell Count 11.26 K/mm3 (4.00-11.30)
[2020-06-05 02:59] LABS: Alanine Aminotransfer (ALT/SGP 25 U/L (12-78); Albumin, Blood 3.6 g/dL (3.4-5.0); Albumin/Globulin Ratio 0.8 (0.8-1.8); Alk Phos 82 U/L (50-136); Anion Gap 6 mmol/L (6-16); Aspartate Aminotrans (AST/SGOT 16 U/L (12-37); Bilirubin, Total 0.7 mg/dL (0.1-1.0); Blood Urea Nitrogen 11 mg/dL (8-24); Bun/Creatinine Ratio 17.8 (12.0-20.0); CO2, Blood 28 mmol/L (21-32); Calcium, Blood 9.2 mg/dL (8.5-10.1); Chloride, Blood 112 mmol/L (98-108); Creatinine, Blood 0.62 mg/dL (0.40-1.00); Globulin, Blood 4.4 g/dL (2.2-4.0); Glomerular Filtration Rate >60 (60-); Glucose, Blood 130 mg/dL (70-99); Potassium, Blood 3.3 mmol/L (3.5-5.5); Sodium, Blood 146 mmol/L (136-145)
[2020-06-05 03:56] LABS: Magnesium, Blood 2.3 mg/dL (1.6-2.4)
[2020-06-05 04:06] LABS: Source, Urine Catheter
[2020-06-05 04:08] LABS: Bilirubin, Urine Neg (Neg); Blood, Urine 4+ (Neg); Glucose Qualitative, Urine Neg (Neg); Ketones, Urine 1+ (Neg); Leukocyte Esterase, Urine 1+ (Neg); Nitrite, Urine Neg (Neg); Protein, Urine 2+ (Neg); Specific Gravity, Urine 1.025 (1.003-1.022); Urobilinogen, Urine NORM (Normal)
[2020-06-05 04:12] LABS: Ethanol (Alcohol), Blood, Med <3 mg/dL; Troponin I 0.018 ng/mL (0.000-0.040)
[2020-06-05 04:14] LABS: Base Excess Venous 4.6 mmol/L; Bicarbonate Venous 27.2 mmol/L (24.0-30.0); PCO2 Venous 51.4 mmHg (38-42); pH Blood Venous 7.37 (7.34-7.37)
[2020-06-05 04:20] LABS: Appearance, Urine Hazy (Clear); Color, Urine Yellow (P-Yellow); U Amphetamine Screen Not Detected; U Barbituate Screen Not Detected; U Benzodiazapine Screen DETECTED; U Buprenorphine Screen Not Detected; U Cannabinoids Screen Not Detected; U Cocaine Screen Not Detected; U Methadone Screen Not Detected; U Methamphetamine Screen Not Detected; U Opiates Screen DETECTED; U Oxycodone Screen Not Detected; U Phencyclidine Screen Not Detected; U Propoxyphene Screen Not Detected
[2020-06-05 04:22] LABS: Amorphous Light (0-Heavy); Bacteria Few /hpf; Mucus Mod (0-Heavy); Squamous Epithelial Cells Few /hpf (Few)
[2020-06-05 04:52] LABS: Influenza A, PCR NEGATIVE (NEGATIVE); Influenza B, PCR NEGATIVE (NEGATIVE); Resp Syncytial Virus, PCR NEGATIVE (NEGATIVE); SARS-Cov-2 (COVID-19) PCR, MMC NEGATIVE (NEGATIVE)
[2020-06-05] MEDS ORDERED: Ativan1 MG PO (07:25)
--- NOTE | 2020-06-05 19:04 | NUR ---
SHIFT SUMMARY ED ADMIT THIS AFTERNOON. PATIENT VERY CONFUSED AND ATTEMPTING TO CLIMB OUT OF BED. REPORTING URINARY URGENCY BUT THEN UNABLE TO VOID. UP TO BSC SEVERAL TIMES. PATIENT THEN FELL ASLEEP AND NAPPED UNTIL END OF SHIFT. CAMERA ON FOR FALL RISK. DENIES PAIN, NAUSEA, AND SHORTNESS OF BREATH.
--- NOTE | 2020-06-06 04:00 | NUR ---
SUMMARY PT HAS BEEN CONFUSED AND IMPULSIVE. PT WAS FREQUENTLY TRYING TO GET OUT OF BED AND YELLING FOR HELP. PT PLACED IN CHRISTY VEST FOR OWN SAFETY. PT CONTINUED TO CRY AND YELL. PROVIDER ADRIENNE CALLED AND ORDER OF ZYPREXA WAS PLACED. PT AGITATION WAS REDUCED. PT ALSO TX W/ ORDERED ATIVAN AND PT WAS ABLE TO SLEEP. PT CURRENTLY SLEEPING AND IN NO DISTRESS. CALL LIGHT IN REACH, BED ALARM ON AND PT ON CAMERA.
[2020-06-06 05:15] LABS: BASOPHILS ABSOLUTE AUTO 0.04 K/mm3 (0.00-0.23); BASOPHILS PERCENT AUTO 1 % (0-2); EOSINOPHILS ABSOLUTE AUTO 0.04 K/mm3 (0.00-0.68); EOSINOPHILS PERCENT AUTO 1 % (0-6); Hematocrit 39.3 % (33.0-51.0); Hemoglobin 12.9 g/dL (11.5-16.0); IMMATURE GRAN ABSOLUTE AUTO 0.02 K/mm3 (0.00-0.10); IMMATURE GRAN PERCENT AUTO 0 % (0-1); LYMPHOCYTES ABSOLUTE AUTO 2.12 K/mm3 (0.84-5.20); LYMPHOCYTES PERCENT AUTO 26 % (21-46); MONOCYTES ABSOLUTE AUTO 0.67 K/mm3 (0.16-1.47); MONOCYTES PERCENT AUTO 8 % (4-13); Mean Corpuscular HGB 29.9 pg (26.0-34.0); Mean Corpuscular HGB Conc 32.8 g/dL (31.5-36.5); Mean Corpuscular Volume 91 fL (80-100); Mean Platelet Volume 10.7 fL (9.1-12.4); NEUTROPHILS ABSOLUTE AUTO 5.31 K/mm3 (1.96-9.15); NEUTROPHILS PERCENT AUTO 65 % (41-73); Platelet Count 189 K/mm3 (150-400); RDW Coefficient Variation 12.6 % (11.7-14.2); RDW Standard Deviation 41.3 fL (35.1-46.3); Red Blood Cell Count 4.32 M/mm3 (3.80-5.20)
[2020-06-06 05:50] LABS: Anion Gap 7 mmol/L (6-16); Blood Urea Nitrogen 10 mg/dL (8-24); Bun/Creatinine Ratio 18.2 (12.0-20.0); CO2, Blood 27 mmol/L (21-32); Calcium, Blood 8.7 mg/dL (8.5-10.1); Chloride, Blood 111 mmol/L (98-108); Creatinine, Blood 0.55 mg/dL (0.40-1.00); Glomerular Filtration Rate >60 (60-); Glucose, Blood 79 mg/dL (70-99); Phosphorus, Blood 3.5 mg/dL (2.5-4.9); Potassium, Blood 3.2 mmol/L (3.5-5.5); Sodium, Blood 145 mmol/L (136-145)
--- NOTE | 2020-06-06 18:08 | NUR ---
SHIFT SUMMARY: NO ACUTE EVENTS. BEHAVIOR REQUIRES CHRISTY VEST STILL, QUITE IMPULSIVE AND CONFUSED, HIGH FALL RISK. CRIES OUT WHEN SHE NEEDS SOMETHING, DOES NOT USE CALL LIGHT. SLEPT MOST OF THE AFTERNOON. GETTING UP TO BSC WITH 2 PERSON ASSIST AND GAIT BELT, HAVING URINARY FREQUENCY BUT VOIDS ~ 400 ML EACH TIME. DENIED PAIN. NO EVENTS ON TELEMETRY, PACED AT [address] ANDERSON ATTEMPTED TO SEE PT BUT SHE WAS ASLEEP SO HE WILL TRY TOMORROW.
--- NOTE | 2020-06-07 05:45 | NUR ---
PT IS CONFUSED, WEARING CHRISTY VEST, SCREAMS OUT AT TIMES, DOES NOT USE CALL LIGHT, TELE MONITOR PACED.
--- NOTE | 2020-06-07 18:09 | NUR ---
SHIFT SUMMARY: NO ACUTE EVENTS. C/O GENERALIZED PAIN, RELIEVED BY TYLENOL. VEST RESTRAINT NO LONGER NEEDED MENTATION IMPROVED FROM YESTERDAY. GETTING UP TO BR WITH FWW AND SBA, URINATING FREQUENTLY. BLADDER SCAN PVR SHOWED 92 ML. TOLERATING PO, GOOD APPETITE. IV SALINE LOCK WAS MOSTLY OUT THIS MORNING SO WAS D/C'D, AND PATIENT HAS VEHEMENTLY REFUSED TO HAVE NEW ONE PLACED. NO BEHAVIORAL OUTBURSTS, PLEASANT AND COOPERATIVE. GAVE TELEPHONE UPDATE TO PT'S DAUGHTER.
--- NOTE | 2020-06-08 05:58 | NUR ---
SHIFT SUMMARY PT IS A 64 Y/O FEMALE, ADMITTED FOR ACUTE METABOLIC ENCEPHALOPATHY. SHE IS A&O X SELF, 1PA C FWW TO THE [facility]. PT YELLS OUT FOR HELP, AND DOES NOT USE CALL LIGHT. NO C/O PAIN, NAUSEA OR SOB. VITAL SIGNS STABLE. PT SLEPT WELL FOR A FEW HOURS DURING THE NIGHT. NO ACUTE CHANGES IN PT CONDITION NOTED DURING THE NIGHT. WILL CONTINUE TO MONITOR AND TREAT PER EMAR UNTIL HAND OFF TO DAY SHIFT RN.
--- NOTE | 2020-06-08 18:20 | NUR ---
SHIFT SUMMARY NO ACUTE CHANGES T/O SHIFT, PT A&O TO SELF AND YEAR THIS MORNING DURING ASSESSMENT. PT SLEPT A GOOD PORTION OF THE DAY, STATED SHE DID NOT GET GOOD SLEEP THE NIGHT BEFORE. ORDER FOR NO IV ACCESS PUT INTO TODAY. PT STATED SHE WAS IN PAIN THIS AM AND WAS OFFERED TYLENOL, PT BECAME AGITATED AND STATED SHE WANTED PERCOCET WHICH SHE TAKES AT HOME. DR ROSENBERG STATED SHE DID NOT WANT THE PT TAKING PERCOCET AT THIS TIME. PT DID NOT COMPLAIN OF PAIN T/O REST OF DAY AND APPEARED TO BE SLEEPING COMFORTABLY. POTASSIUM NOTICED TO BE LOW FROM LABS DRAWN 06/06/20. SHAKIRA WAS NOTIFED AND ASKED TO HAVE A REPEAT LAB DRAWN ON 06/09/20 DURING MORNING LAB DRAW. PT IS CURRENTLY RESTING IN BED WATCHING TV. CALL LIGHT WITHIN REACH AND BED ALARM ON. PT TENDS TO GET UP WITHOUT ASSISTANCE.
--- NOTE | 2020-06-09 05:24 | NUR ---
SHIFT SUMMARY PT IS A 64 Y/O FEMALE, ADMITTED FOR TOXIC METABOLIC ENCEPHALOPATHY. SHE IS A&O X SELF, AND WAS VERY AGITATED DURING THE NIGHT. PT REFUSED TO STAY IN BED, WAS VERY AGITATED AND TRYING TO LEAVE DURING THE NIGHT. ATTEMPTED TO REORIENT THE PT, BUT PT DENIED THAT SHE WAS IN THE HOSPITAL AND THAT "YOU'RE WRONG", THOUGH SHE DID NOT KNOW WHERE SHE WAS. THE HOSPITALIST [facility] DELEON WAS CALLED, AND A CHRISTY VEST RESTRAINT AND A OT DOSE OF IM ZYPREXA ORDERED AND GIVEN AROUND 2220. PT FELL ASLEEP AFTER 0000 AND SLEPT THROUGH THE NIGHT AFTER. TRIAL OFF OF RESTRAINTS AT 0400. VITAL SIGNS STABLE. NO C/O ACUTE PAIN, NAUSEA OR SOB. VITAL SIGNS STABLE. NO ACUTE CHANGES IN PT CONDITION NOTED. WILL CONTINUE TO MONITOR AND TREAT PER EMAR UNTIL HAND OFF TO DAY SHIFT RN.
--- NOTE | 2020-06-09 12:11 | NUR ---
PT IS CONTINUOUSLY TRYING TO GET OUT OF BED WITHOUT ASSISTANCE CAUSING AN INCREASED RISK FOR FALLS AND INJURY. WHEN ASSISTED TO CHAIR PT THEN ATTEMPTS TO GET UP AND GO BACK TO BED. STATES SHE HAS BEEN IN CHAIR FOR 30 MINUTES AND ITS TIME TO MOVE [place] SHE WAS JUST PLACED IN THE CHAIR. PT BECOMES AGITATED WHEN REDIRECTING HER AND TELLING HER SHE WAS JUST PLACED IN CHAIR. TRYING TO PREVENT PLACING PT IN RESTRAINTS BECAUSE IT PROLONGS THE PT'S STAY HERE IN THE HOSPITAL. ZYPREXA WAS GIVEN TO PT PER EMAR TO REDUCE AGITATION AND NEED FOR RESTRAINTS.
--- NOTE | 2020-06-09 17:49 | NUR ---
SHIFT SUMMARY NO ACUTE CHANGES REGARDING MEDICAL STATUS. HOWEVER PT APPEARED MORE DISORIENTED AND HARDER TO REDIRECT THAN EARIER IN THE SHIFT. PT ALERT TO SELF ONLY. PT ATTEMPTED TO GET UP WITHOUT ASSISTANCE SEVERAL TIMES AND WAS BECOMING AGITATED WHEN REDIRECTED. ZYPREXA GIVEN X1 TODAY FOR AGITATION. PT HAS STARTED TO CALL OUT FOR HELP TOWARDS THE END OF THE SHIFT WHICH IS MORE ALONG HER BASELINE. SHE IS CURRENTLY UP AT BEDSIDE EATING DINNER WITH CALL LIGHT WITHIN REACH AND BED ALARM ON. RESTRAINTS WERE REMOVED PRIOR TO ME COMING ON. WILL PASS ONTO ONCOMING NURSE THAT WE ARE TRYING TO REFRAIN FROM USING RESTRAINTS IF POSSIBLE TO PREVENT PORLONGING PT STAY IN HOSPITAL.
--- NOTE | 2020-06-10 05:05 | NUR ---
FLAG SIGNALER SUMMARY PT A/O X1 TO SELF. DENIES PAIN, SOB, NAUSEA. AMBULATED WITH 1-2 ASSIST WITH FWW TO BSC. PT HAS TRIED TO GET UP MULTIPLE TIMES TONIGHT BUT WAS FINALLY ABLE TO SLEEP AT 0200. NO ACUTE CHANGES. CALL LIGHT WITHIN REACH. BED ALARM ON.
--- NOTE | 2020-06-10 11:45 | NUR ---
1115 PT IS VERY IMPULSIVE, FORGETFUL, AND CONFUSED. PT HAS CONTINUOUSLY TRIED TO SELF TRANSFER FROM BED TO CHAIR AND CHAIR TO BED SINCE BEGINING OF SHIFT. PT IS DIFFICULT TO REDIRECT AND HAS VERY POOR SAFETY AWARENESS. ATTEMPTED SEVERAL INTERVENTIONS INCLUDING DISTRACTION, REDIRECTION, ECT. AT 1115 CHRISTY URBINA APPLIED FOR PT SAFETY. 1143 DR[address] ROSENBERG NOTIFIED AND RECIEVED ORDER FOR RESTRAINT.
--- NOTE | 2020-06-10 17:54 | NUR ---
SHIFT SUMMARY. ALERT, ORIENTATED TO SELF, POOR SHORT TERM MEMORY, IMPULSIVE, UNAWARE OF LIMITATIONS. PT TOLERATING RESTRAINTS WITHOUT ISSUE. PT REPORTED CHRONIC BACK PAIN, DR. ROSENBERG ORDERED NORCO WHICH HAS BEEN EFFECTIVE IN MANAGING PAIN. NO N/V, SOB. GOOD APPETITE. DAUGHTER CALLED AND THIS RN UPDATED ON PT'S STATUS. NO OTHER CHANGES OR CONCERNS.
--- NOTE | 2020-06-11 05:38 | NUR ---
SPINDLE TESTER SUMMARY PT A/O X1 TO SELF. AGITATED TOWARDS BEGINNING OF SHIFT. WAS ABLE TO GET SOME SLEEP FOR THE REST OF NOC SHIFT. DENIES CHEST PAIN, SOB, NAUSEA. AMBULATED WITH 2 ASSIST, GAITBELT AND FWW TO THE BEDSIDE COMMODE. BED ALARM ON, CALL LIGHT WITHIN REACH. NO ACUTE CHANGES.
--- NOTE | 2020-06-11 17:40 | NUR ---
SHIFT SUMMARY. A&OX1, AGITATED FREQUENTLY, IMPULSIVE. CONTINUED WITH CHRISTY DIGGST THIS SHIFT FOR SAFETY PT IS A VERY HIGH FALL RISK SECONDARY TO COGNITION DEFICITS, IMPULSIVENESS, AND DIFFICULTY REDIRECTING. PT C/O NECK AND BACK PAIN THAT HAS BEEN MANAGED WELL WITH CURRENT ORDERS. NO N/V, SOB. PT BECAME VERY AGITATED DURING SHOWER THIS AFTERNOON, YELLING AT STAFF AND NOT FOLLOWING DIRECTIONS, PRN ZYPREXA GIVEN AND PT HAS APPEARED TO SLEEP SINCE. NO OTHER CHANGES OR CONCERNS.
--- NOTE | 2020-06-12 04:59 | NUR ---
COMMERCIAL LOAN REVIEWER SUMMARY PT A/O X1 TO SELF. AGITATED TOWARDS BEGINNING OF NOC SHIFT. PT SLEPT WELL AFTER BEDTIME PO ZYPREXA GIVEN. DENIES PAIN, NAUSEA, SOB. PT AMBULATED WITH 2 ASSIST WITH FWW AND GAITBELT TO THE BSC. VSS, NO ACUTE CHANGES. BED ALARM ON, CALL LIGHT WITHIN REACH. WILL CONTINUE TO MONITOR.
--- NOTE | 2020-06-12 16:51 | NUR ---
SHIFT SUMMARY PATIENT ALERT TO SELF AND LOCATION THIS SHIFT. PATIENT REMIANS IN CHRISTY THIS SHIFT DUE TO IMPULSIVENESS AND WEAKNESS. PATIENT CALLS OUT FREQUENTLY. PATIENT DIFFICULT TO REDIRECT. PATIENT UP TO COMODE MULTIPLE TIMES THIS SHIFT WITH ASSISTANCE OF STAFF. PATIENT MEDICATED FOR PAIN THROUGHOUT THIS SHIFT. PATIENT MEDICATED FOR AGITATION THIS AFTERNOON. PATIENT CURRENTLY SITTING UP IN BED WATCHING TELEVISION.
--- NOTE | 2020-06-12 18:12 | NUR ---
Met with pt, she continues yelling out intermittently with a flat affect. Pt is currently taking Olanzapine at bedtime as well as a prn dose available, but this does not appear to be very effective. Placed call to [facility] to inquire about pt's baseline to attempt to assist with symptom management. Spoke to Wang Ellison,GRAPPLER for [facility], who states pt has been followed by mental health at [facility] with a diagnosis of rapid cycling bipolar, and the following medications were tried: Olanzapine in the past with no therapeutic effect. Raylar, which caused severe chest pain. 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 Mr. Ellison is concerned about trying the same medications again, as all but one of the above mentioned caused severe physical as well as psychological issues. Plan to report this information to Supervisor Shuttle Preparation when they return tomorrow morning. She has been
--- NOTE | 2020-06-13 06:33 | NUR ---
Confused PT at high risk for falls continues to need reji vest & remote camera monitoring to prevent unassisted transfers & injury. PT has inappropriate speech & flight of ideas & poor safety awareness. She was on remote camera monitoring & they called several times to say she was attempting to pull reji vest over head & leave. Up to BSC with fww & gait belt. Needs to void frequently around 300 ml clear light yellow urine. PRN zyprexa was given x 1 as well as scheduled HS dose. PT had minimal sleep until around 4 am. Medicated for back pain x 2 with helpful effect.
[2020-06-13 07:41] LABS: BASOPHILS ABSOLUTE AUTO 0.04 K/mm3 (0.00-0.23); BASOPHILS PERCENT AUTO 1 % (0-2); EOSINOPHILS ABSOLUTE AUTO 0.09 K/mm3 (0.00-0.68); EOSINOPHILS PERCENT AUTO 2 % (0-6); Hematocrit 41.8 % (33.0-51.0); Hemoglobin 13.9 g/dL (11.5-16.0); IMMATURE GRAN ABSOLUTE AUTO 0.02 K/mm3 (0.00-0.10); IMMATURE GRAN PERCENT AUTO 0 % (0-1); LYMPHOCYTES ABSOLUTE AUTO 2.09 K/mm3 (0.84-5.20); LYMPHOCYTES PERCENT AUTO 40 % (21-46); MONOCYTES PERCENT AUTO 11 % (4-13); Mean Corpuscular HGB 29.7 pg (26.0-34.0); Mean Corpuscular HGB Conc 33.3 g/dL (31.5-36.5); Mean Corpuscular Volume 89 fL (80-100); Mean Platelet Volume 10.5 fL (9.1-12.4); NEUTROPHILS ABSOLUTE AUTO 2.44 K/mm3 (1.96-9.15); NEUTROPHILS PERCENT AUTO 46 % (41-73); Platelet Count 177 K/mm3 (150-400); RDW Coefficient Variation 12.4 % (11.7-14.2); RDW Standard Deviation 40.9 fL (35.1-46.3); Red Blood Cell Count 4.68 M/mm3 (3.80-5.20); White Blood Cell Count 5.28 K/mm3 (4.00-11.30)
[2020-06-13 07:55] LABS: Anion Gap 5 mmol/L (6-16); Blood Urea Nitrogen 9 mg/dL (8-24); Bun/Creatinine Ratio 14.1 (12.0-20.0); CO2, Blood 31 mmol/L (21-32); Calcium, Blood 8.9 mg/dL (8.5-10.1); Chloride, Blood 104 mmol/L (98-108); Creatinine, Blood 0.64 mg/dL (0.40-1.00); Glomerular Filtration Rate >60 (60-); Glucose, Blood 93 mg/dL (70-99); Sodium, Blood 140 mmol/L (136-145)
--- NOTE | 2020-06-13 18:32 | NUR ---
SHIFT SUMMARY PATIENT ALERT, ORIENTED X3 THIS SHIFT. PATIENT REMAINS IMPULSIVE AND ATTEMPTS TO GET OUT OF BED FREQUENTLY. PATIENT TRANSFERED FROM BED TO CHAIR WITH STAFF ASSIST MULTIPLE TIMES THIS SHIFT. PATIENT CALM MOST OF THIS SHIFT WITH INCREASING AGITATION LATE THIS SHIFT. PATIENT CURRENTLY SITTING UP IN CHAIR WATCHING TELEVISION.
--- NOTE | 2020-06-14 04:49 | NUR ---
PT had new psych med rx by DR Wise & it appeared to have some helpful effect of promoting rest. PT has very poor judgement & little insight into her weakness & high fall risk. Several calls from remote camera court monitor when She attempted unsafe behaviors. She has been able to take restraint off once this shift & refuses reapplication for about 1/2 hour. Then she does allow staff to put restraint on to prevent unsafe unassisted transfers. Cooperative with meds. PT does have multiple requests is demanding attention multiple times. Speech nonsensical at times & she knows she has unrealistic expectations of staff attention. Bowel care given with large BM. Very forgetful. Fall precautions continue & restraint required due to impulsive behavior & poor safety awareness & judgement.
--- NOTE | 2020-06-14 09:40 | NUR ---
CONFIRMED VIDEO MONITOR WITH ARIAN SHEARER THIS AM.
--- NOTE | 2020-06-14 16:41 | NUR ---
SHIFT SUMMARY PT MEDICATED FOR PAIN & ANXIETY PER REQUEST BY PT TWICE TODAY. PT VERY FORGETFUL THIS SHIFT. FORGETTING THAT SHE WAS GIVEN THESE MEDS 30 MINUTES AFTER ADMINISTERED. REORIENTED NEEDED. PT VERY PARANOID THIS AM, OTHERWISE DID WELL THIS SHIFT. PT AMBULATED TO BATHROOM TODAY. CURRENTLY RESTING IN BED. CALL LIGHT IN REACH. BED ALARM ON. CHRISTY DCED AT 1200 TODAY. PT USING CALL LIGHT OCCASIONALLY, BUT MOSTLY CALL OUT NEEDS INTO THE HALLWAY. NO OTHER ACUTE CHANGES IN ASSESSMENT AT THIS TIME. VS REVIEWED & STABLE.
--- NOTE | 2020-06-14 19:05 | NUR ---
ASSUMED CARE RECEIVED REPORT FROM YOON BELLA. PT ASLEEP. NO ACUTE NEEDS ASSESSED AT THIS TIME. CALL LIGHT, POSSESSIONS IN REACH, BED IN LOW POSITION. CONTINUE TO MONITOR.
--- NOTE | 2020-06-15 03:54 | NUR ---
TELECOMMUNICATIONS FIELD ENGINEER SUMMARY PT RESTING IN BED, IN NO ACUTE DISTRESS. VS REVIEWED,WNL. PT ASLEEP AT BEGINNING OF SHIFT, AWOKE AT APPROXIMATELY 2150, HAS BEEN AWAKE SINCE. MULTIPLE ATTEMPTS TO SELF-TRANSFER UNSAFELY, CHRISTY VEST APPLIED AND IN PLACE AT THIS TIME; DOES NOT CALL APPROPRIATELY, YELLS OUT FOR STAFF CONSTANTLY. UP TO BSC MULTIPLE TIMES T/O NIGHT WITH 1 ASSIST, TOLERATED WELL. MEDICATED FOR C/O PAIN X1. NO ACUTE NEEDS ASSESSED AT THIS TIME. CALL LIGHT, POSSESSIONS IN REACH, BED IN LOW POSITION. REMOTE MONITORING IN PLACE, VERIFIED WITH MAXINE. WILL REPORT OFF TO ONCOMING RN.
--- NOTE | 2020-06-15 07:00 | NUR ---
CHRISTY VEST RESTRAINT REMOVED FROM PT. SHE IS FOLLOWING DIRECTIONS AND CALLING WITH HER CALL SABRINA. 1 PERSON ASSIST UP TO BR WITH WALKER. WILL MONITOR CLOSELY.
--- NOTE | 2020-06-15 12:20 | NUR ---
Pt is not in restraints today, as her anxiety is much improved as well today. She is alert, able and willing to follow simple commands t/o this visit. She tells me she is at [facility], and she would like to go "home to [place]? Pt is alert today, also pleasant and cooperative with care. This is why she has been able to spend of today without the restraints. She states she wants to "Go Home to [place]. She has been living at [facility] for approximately 1 year. 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 She smiles as she talks about this. Plan to reach out to pt's daughter, as she is next of kin.
--- NOTE | 2020-06-15 17:50 | NUR ---
PT HAS BEEN OUT OF CHRISTY T/O THE SHIFT, REMAINS IMPULSIVE BUT DOES CALL OUT FOR HELP AT TIMES AND SOMETIMES USES HER CALL BENNETT. CHAIR AND BED ALARM ARMED. SHE IS A ONE PERSON ASSIST WITH WALKER TO BATHROOM. NO ACUTE CHANGES NOTED THIS SHIFT, WILL CONTINUE TO MONITOR AND REPORT TO ONCOMING RN.
--- NOTE | 2020-06-15 18:50 | NUR ---
ASSUMED CARE RECEIVED REPORT FROM YOON MADDEN. PT LYING IN BED, IN NO ACUTE DISTRESS. PER REPORT, CHRISTY VEST OFF T/O DAY. PT DENIES NEEDS AT THIS TIME. CALL LIGHT, POSSESSIONS IN REACH, BED IN LOW POSITION WITH ALARM ON.
[2020-06-16 04:58] LABS: BASOPHILS ABSOLUTE AUTO 0.05 K/mm3 (0.00-0.23); BASOPHILS PERCENT AUTO 1 % (0-2); EOSINOPHILS ABSOLUTE AUTO 0.13 K/mm3 (0.00-0.68); EOSINOPHILS PERCENT AUTO 2 % (0-6); Hematocrit 40.7 % (33.0-51.0); Hemoglobin 13.4 g/dL (11.5-16.0); IMMATURE GRAN ABSOLUTE AUTO 0.02 K/mm3 (0.00-0.10); IMMATURE GRAN PERCENT AUTO 0 % (0-1); LYMPHOCYTES ABSOLUTE AUTO 2.17 K/mm3 (0.84-5.20); LYMPHOCYTES PERCENT AUTO 29 % (21-46); MONOCYTES ABSOLUTE AUTO 0.84 K/mm3 (0.16-1.47); MONOCYTES PERCENT AUTO 11 % (4-13); Mean Corpuscular HGB 29.8 pg (26.0-34.0); Mean Corpuscular HGB Conc 32.9 g/dL (31.5-36.5); Mean Corpuscular Volume 91 fL (80-100); Mean Platelet Volume 10.9 fL (9.1-12.4); NEUTROPHILS ABSOLUTE AUTO 4.18 K/mm3 (1.96-9.15); NEUTROPHILS PERCENT AUTO 56 % (41-73); Platelet Count 183 K/mm3 (150-400); RDW Coefficient Variation 12.6 % (11.7-14.2); RDW Standard Deviation 41.5 fL (35.1-46.3); Red Blood Cell Count 4.49 M/mm3 (3.80-5.20); White Blood Cell Count 7.39 K/mm3 (4.00-11.30)
--- NOTE | 2020-06-16 05:07 | NUR ---
LEAD CONSULTANT SUMMARY PT ASLEEP, IN NO ACUTE DISTRESS. VS REVIEWED,WNL. HAS NOT NEEDED CHRISTY T/O NIGHT, CALLS OUT TO MAKE NEEDS KNOWN. A&O TO SELF, SURROUNDINGS. EASILY FORGETFUL, SPEAKS NON-SENSICALLY AT TIMES; STATING THAT SHE IS LOOKING FOR HER BELONGINGS SO SHE CAN "GO TO COURT TODAY." PROVIDED RE-DIRECTION. AMBULATED TO BATHROOM WITH 1 ASSIST USING FWW, TOLERATED WELL. NO C/O LOOSE STOOLS THIS SHIFT. NO OTHER ACUTE CHANGES TO REPORT OVERNIGHT. CALL LIGHT, POSSESSIONS IN REACH, BED IN LOW POSITION WITH ALARMS ON. WILL REPORT OFF TO ONCOMING RN.
[2020-06-16 05:24] LABS: Anion Gap 5 mmol/L (6-16); Blood Urea Nitrogen 10 mg/dL (8-24); Bun/Creatinine Ratio 17.6 (12.0-20.0); CO2, Blood 30 mmol/L (21-32); Calcium, Blood 9.1 mg/dL (8.5-10.1); Chloride, Blood 111 mmol/L (98-108); Creatinine, Blood 0.57 mg/dL (0.40-1.00); Glomerular Filtration Rate >60 (60-); Glucose, Blood 89 mg/dL (70-99); Potassium, Blood 3.8 mmol/L (3.5-5.5); Sodium, Blood 146 mmol/L (136-145)
--- NOTE | 2020-06-16 18:32 | NUR ---
PT HAS BEEN SELF TRANSFERRING BETWEEN BED AND CHAIR, WALK INTO BR WITH WALKER. SHE MOVES SLOWLY BUT IS STEADY ON HER FEET. NO ACUTE CHANGES NOTED THIS SHIFT, PT TO [facility]GE. WILL CONTINUE TO MONITOR AND REPORT TO ONCOMING RN.
--- NOTE | 2020-06-17 05:29 | NUR ---
PLASTIC INSTALLER SUMMARY NO ACUTE CHANGES THIS SHIFT. PT AAOX2-3, FORGETFUL/CONFUSED AT TIMES BUT IS GENERALLY EASY TO REORIENT. STANDBY ASSIST W/ FWW INTO THE BATHROOM. MEDICATED FOR PAIN X1 PER EMAR. PT UP AND DOWN FROM BED UNTIL ABOUT MIDNIGHT AND HAS SLEPT FAIRLY WELL SINCE. PT'S DTR DEBORAH CALLED FOR UPDATE, OK PER PT TO GIVE INFORMATION. VSS, WILL CONTINUE TO MONITOR.
--- NOTE | 2020-06-17 17:20 | NUR ---
PT ALERT ORIENTED TO SELF AND SURROUNDINGS, PT IS VERY FORGETFULL AND CAN GET IRRITATED AT TIMES, THE PT WAS ANXIOUS THIS AM AND SAID SHE FELT LIKE SHE WAS HAVING TROUBLE BREATHING, PT' O2 SATS WERE WNL, O2 @ 2L/MIN WAS APPLIED FOR THE PT'S COMFORT, AFTER THAT THE PT LAID DOWN IN BED AND SLEPT FOR SEVERAL HOURS, THE PT WAS MEDICATED FOR PAIN X1 TODAY, CALL LIGHT IN REACH, WILL CONTINUE TO MONITOR AND ASSESS FOR CHANGES
--- NOTE | 2020-06-17 19:28 | NUR ---
Awake. Rrequested assist with "powder" on backside. Instructed not to climb out of bed without staff assist. pt voiced annoyance. Call light in reach
--- NOTE | 2020-06-17 19:49 | NUR ---
VOiced SOB, O2 per NC. RT at bedside to assess. Call light in reach. Note anxious but RT voiced sats ok
--- NOTE | 2020-06-18 03:10 | NUR ---
SHIFT SUMMARY HAS BEEN AWAKE MULTIPLE TIMES THROUGHOUT SHIFT, GETTING OUT OF BED, HIGH FALL RISK, NOT REDIRECTABLE - EVEN DEFIANT AND AGITATED WHEN STAFF ATTEMPTED TO INTERVENE. PLACED IN CHRISTY VEST PER MD ORDERS, AND LATER BED RAILS X 4 AND BILATERAL MITTENS SHE CONTINUED TO PULL OFF VEST TO GET OUT OF BED. CALL LIGHT IN REACH. PAIN MEDS GIVEN FOR SHOULDER DISCOMFORT. CURRENTLY RESTING QUIETLY. WILL CONTINUE TO MONITOR
[2020-06-18 11:09] LABS: BASOPHILS ABSOLUTE AUTO 0.06 K/mm3 (0.00-0.23); BASOPHILS PERCENT AUTO 1 % (0-2); EOSINOPHILS ABSOLUTE AUTO 0.11 K/mm3 (0.00-0.68); EOSINOPHILS PERCENT AUTO 1 % (0-6); Hematocrit 43.9 % (33.0-51.0); Hemoglobin 14.3 g/dL (11.5-16.0); IMMATURE GRAN ABSOLUTE AUTO 0.02 K/mm3 (0.00-0.10); IMMATURE GRAN PERCENT AUTO 0 % (0-1); LYMPHOCYTES PERCENT AUTO 19 % (21-46); MONOCYTES ABSOLUTE AUTO 0.83 K/mm3 (0.16-1.47); MONOCYTES PERCENT AUTO 10 % (4-13); Mean Corpuscular HGB 29.9 pg (26.0-34.0); Mean Corpuscular HGB Conc 32.6 g/dL (31.5-36.5); Mean Corpuscular Volume 92 fL (80-100); Mean Platelet Volume 10.4 fL (9.1-12.4); NEUTROPHILS ABSOLUTE AUTO 6.06 K/mm3 (1.96-9.15); NEUTROPHILS PERCENT AUTO 69 % (41-73); Platelet Count 210 K/mm3 (150-400); RDW Coefficient Variation 12.3 % (11.7-14.2); RDW Standard Deviation 41.8 fL (35.1-46.3); Red Blood Cell Count 4.78 M/mm3 (3.80-5.20); White Blood Cell Count 8.78 K/mm3 (4.00-11.30)
[2020-06-18 11:25] LABS: Anion Gap 5 mmol/L (6-16); Blood Urea Nitrogen 10 mg/dL (8-24); Bun/Creatinine Ratio 15.8 (12.0-20.0); CO2, Blood 29 mmol/L (21-32); Calcium, Blood 8.9 mg/dL (8.5-10.1); Chloride, Blood 110 mmol/L (98-108); Creatinine, Blood 0.63 mg/dL (0.40-1.00); Glomerular Filtration Rate >60 (60-); Glucose, Blood 129 mg/dL (70-99); Potassium, Blood 3.7 mmol/L (3.5-5.5); Sodium, Blood 144 mmol/L (136-145); Troponin I <0.015 ng/mL (0.000-0.040)
--- NOTE | 2020-06-18 16:22 | NUR ---
PT IS ALERT, ORIENTED TO SELF AND SURROUNDINGS, THE PT IS VERY IMPULSIVE UP FROM THE CHAIR TO THE BED CONTINUOUSLY T/O THE DAY, AGITATED SOMEWHAT THIS AM FROM THE ALARMS, GAVE ZYPREXA X1 THIS AM, PT REPORTED FEELING NAUSEATED THIS AM GAVE ZOFRAN ODT X1, THE SO FAR HAS BEEN AWAKE ALL DAY, PT APPEARS TO BE BREATHING EASILY ON RA TODAY, THE PT WAS MEDICATED FOR PAIN X2 TODAY, CALL LIGHT IN REACH, WILL CONTINUE TO MONITOR AND ASSESS FOR CHANGES
--- NOTE | 2020-06-18 20:25 | NUR ---
AWAKE. UP TO BATHROOM X 2. OBSERVATION ON CAMERA CONTINUES. PAIN MED AND ANXIETY MED GIVEN. VERBAL RESPONSE FLIGHT OF IDEAS. CALL LIGHT IN REACH.
--- NOTE | 2020-06-18 22:03 | NUR ---
BP ELEVATED EARLIER, MEDICATIONS GIVEN, MEDS EFFECTIVE BP 152/82 NOW. ASYMPTOMATIC. CALL LIGHT IN REACH
--- NOTE | 2020-06-19 04:15 | NUR ---
SHIFT SUMMARY DURING FIRST FEW HOURS OF THE SHIFT, PT QUITE ANXIOUS, BP WAS ELEVATED, BUT MEDS GIVEN EARLIER EFFECTIVE AND BP TRENDEDED DOWNWARD TO WNL. HAS BEEN RESTING QUIETLY WITH FEW INTERRRUPTIONS SINCE HS. CALL LIGHT IN REACH
--- NOTE | 2020-06-19 16:05 | NUR ---
ALERT TO SELF. YELLS OFTEN FOR "HELP NOW". WHEN RN GOES IN IS FOR THINGS LIKE "ITCH MY BACK", "TURN MY FAN ON", "RAISE MY HEAD", ETC. MEDICATED FOR HEADACHE AND ANXIETY WITH AT THIS TIME LITTLE RESULTS. UNLABORED RESPIRATIONS. DOES NOT ALWAYS LEAVE OXYGEN NASAL CANNULA ON, BUT SATS IN 90'S WHEN OXYGEN IS OFF. PATIENT WILL ASK FOR HELP AND SAY SHE CAN NOT DO IT HERSELF, BUT WHEN ADVISED SHE CAN, WILL DO IT HERSELF. BONIFACIO
--- NOTE | 2020-06-19 17:45 | NUR ---
PER PATIENT OK TO TALK TO DAUGHTER, DEBORAH. RELATIVE UPDATED AND PHONE NUMBERS PLACED ON WHITEBOARD.
--- NOTE | 2020-06-19 17:58 | NUR ---
CALLED ABOUT PATIENTS ANXIETY. ADVISED WHAT HAS BEEN GIVEN FOR PAIN AND ANXIETY--IMITREX AND FIORECET AND NORCO FOR PAIN AND ZYPREXA P.O. AND I, FOR ANXIETY WITH NO RELIEF. ATIVAN 1 MG IM ORDERED.
--- NOTE | 2020-06-19 18:02 | NUR ---
PATIENT UP OFTEN IN ROOM "HELP ME". STS NEEDS ANXIETY MED. WILL ASK FOR THINGS ;SUCH , CHANGE MY PILLOW CASE, PUT THE HEAD OF BED UP, PUT A PILLOW BETWEEN MY LEGS, ETC. C/O HIGH ANXIETY. RECEIVED MED ORDER FROM WHO WAS ADVISED OF PREVIOUS MEDS.
--- NOTE | 2020-06-19 18:16 | NUR ---
Attempted to visit patient, see if she was beginning to cam down from the medication changes. Per staff, she was been yelling out today for an sanger board. I brought her one from the pantry. She then threw it in the trash and through her glass of water at me. I ended the visit for today.
--- NOTE | 2020-06-19 19:09 | NUR ---
SCREAMING AT STAFF. THREW CUP OF WATER AT STAFF. CONFRONTED RE BEHAVIOR. CALL LIGHT IN REACH. REMAINS ON CAMERA FOR OBSERVATION
--- NOTE | 2020-06-20 04:00 | NUR ---
SHIFT SUMMARY HAS BEEN AWAKE ALMOST CONTINUOUSLY THROUGHOUT NOCT.MULTIPLE REQUESTS FOR "HELP" TO PUSH THE CALL LIGHT IN HER HAND, OR TO PULL THE BED COVERS OVER HER THAT WERE IN HER REACH, OR TO PUT HER SOCKS ON AFTER SHE WANTED THEM OFF A FEW MINUTES EARLIER. MULTIPLE ATTEMPTS AT REDIRECTING HER AND MEDICATED FOR PAIN AND ANXIETY - SEE MAR FOR DETAILS. CALL LIGHT IN REACH. CURRENTLY IS RESTING QUIETLY. CAMERA IS ON FOR HER SAFETY
[2020-06-20 08:11] LABS: Hematocrit 42.3 % (33.0-51.0); Hemoglobin 13.7 g/dL (11.5-16.0); Mean Corpuscular HGB 29.9 pg (26.0-34.0); Mean Corpuscular HGB Conc 32.4 g/dL (31.5-36.5); Mean Corpuscular Volume 92 fL (80-100); Mean Platelet Volume 10.3 fL (9.1-12.4); Platelet Count 176 K/mm3 (150-400); RDW Coefficient Variation 12.5 % (11.7-14.2); RDW Standard Deviation 42.1 fL (35.1-46.3); Red Blood Cell Count 4.58 M/mm3 (3.80-5.20)
[2020-06-20 08:28] LABS: Anion Gap 5 mmol/L (6-16); Blood Urea Nitrogen 10 mg/dL (8-24); Bun/Creatinine Ratio 15.7 (12.0-20.0); CO2, Blood 30 mmol/L (21-32); Calcium, Blood 9.1 mg/dL (8.5-10.1); Chloride, Blood 110 mmol/L (98-108); Creatinine, Blood 0.64 mg/dL (0.40-1.00); Glomerular Filtration Rate >60 (60-); Glucose, Blood 90 mg/dL (70-99); Potassium, Blood 3.6 mmol/L (3.5-5.5); Sodium, Blood 145 mmol/L (136-145)
--- NOTE | 2020-06-20 18:26 | NUR ---
PATIENT IS ALERT AND ORIENTED WITH CONFUSION, ANXIETY AND AGITATION. SHE CRIES OUT ASKING FOR HELP CONSTANTLY. SHE WILL TRANSFER TO THE BSC OR TO THE BATHROOM WITH A FWW. SHE IS IMPULSIVE AND WILL GET OUT OF BED WITHOUT ASSISTANCE. DR. NOVOA ORDERED PO ATIVAN FOR ANNMARIE PATIENT THIS EVENING, ONE DOSE HAS BEEN GIVEN. C/O PAIN IN HER LEFT ARM, TREATED PER EMAR. WILL CONTINUE TO MONITOR
--- NOTE | 2020-06-20 18:33 | NUR ---
PATIENT IS ALERT AND ORIENTED AND COOPERATIVE WITH CARE. SHE IS BEAVER. HER LEFT ARM IS IN A SLING FOLLOWING A PACEMAKER PLACEMENT. THE PATIENT DOES HAVE AN APPOINTMENT SCHEDULED ON June AT 13:[address] RABAGO OFFICE FOR A WOUND AND PACEMAKER CHECK. SHE WILL TRANSFER 1PA WITH GAITBELT AND CANE. UP TO CHAIR FOR MEALS. BARRIGA IS IN PLACE. WILL CONTINUE TO MONITOR
--- NOTE | 2020-06-21 04:19 | NUR ---
SUMMARY PT HAD NO NEW ISSUES NOTED. PT CONTINUES TO BE IMPULSIVE AND YELLS OUT. PT CONTINUES TO C/O LEFT ARM DISCOMFORT. PT TX W/ ZYPREXA FOR INCREASED AGITATION. PT ZYPREXA DOSE INCREASED BY DR DE LOS SANTOS. PT HAS BEEN SLEEPING WELL. PT CURRENTLY AWAKE AND IN NO DISTRESS. CALL LIGHT IN REACH AND BED ALARM ON.
--- NOTE | 2020-06-21 17:21 | NUR ---
SUMMARY PT AWAKE IN BED, SLEPT FOR MOST OF THE MORNING, THEN AWAKE AND ANXIOUS THE REST OF THE DAY, PT CALLS OUT CONSTANTLY, ASKS FOR MINOR ASSISTANCE IN DAILY TASKS FREQUENTLY, OR CANNOT VERBALIZE THE HELP SHE NEEDS, PT APPEARS FRUSTRATED AND YELLS AT TIMES, PT DID THROW HER TISSUE BOX AT ONE POINT WHEN TOLD SHE WAS JUST MEDICATED FOR PAIN, PT INFORMED THIS BEHAVIOUR WOULD NOT BE TOLERATED, PT CALMED DOWN, BUT CONTINUES TO CALL OUT FOR HELP CONSTANTLY DESPITE BEING HELPED WITH ANYTHING SHE ASKS FOR, VSS, WILL CONT TO MONITOR
--- NOTE | 2020-06-22 04:14 | NUR ---
SUMMARY PT UP LATE FREQUENTLY CALLING OUT FOR ASSISTANCE. PT EDUCATED ON USE OF CALL LIGHT BUT CONTINUES TO YELL OUT. PT COMPLAINS OF ANXIETY AND PAIN. PT CONFUSION INCREASED DURING SHIFT. PT TX PER EMAR FOR PAIN AND ANXIETY. PT AGITATION INCREASED WELL DURING SHIFT. PT CURRENTLY SLEEPING AND BREATHING IN NO DISTRESS. CALL LIGHT IN REACH AND BED ALARM ON.
--- NOTE | 2020-06-22 17:05 | NUR ---
SUMMARY PT AWAKE IN BED, CALLS OUT "PLEASE HELP ME" FREQUENTLY, OFTEN CANNOT VERBALIZE HER NEEDS WHEN ASKED, SHE REPLIES WITH "EVERYTHING" OR "I DON'T KNOW!" PT MED PER EMAR FOR L ARM PAIN AND ANXIETY, PT UP TO THE BATHROOM WITH MIN ASSIST AND OCC INDEPENDENTLY, VSS, WILL CONT TO MONITOR
--- NOTE | 2020-06-23 04:26 | NUR ---
SHIFT SUMMARY- PT. AWAKE AND YELLING OUT ALL SHIFT. VERY ANXIOUS AND RESTLESS. MEDICATED PER EMAR WITH MULTIPLE PRN MEDS WITH NO EFFECT. C/O PAIN TO ARM AND HEAD, PAIN MED GIVEN PER EMAR. PT. UP TO BATHROOM FREQUENTLY T/O THE NIGHT TO VOID W/MINIMAL ASSIST, IMPULSIVE. PT. ASSISTED SEVERAL TIMES T/O THE SHIFT, CONTS TO YELL OUT FOR HELP. CALL LIGHT WITHIN REACH AND SIDE RAILS UPX2. WILL CONT TO MONITOR.
--- NOTE | 2020-06-23 08:20 | NUR ---
PT PLEASANT CRYING OUT REGULARLY. DOES NOT USE CALL LITE. CONFUSED. H/R REG, NO MURMER NOTED. NO TELE. LUNGS CLEAR RESP EASY, UNLABORED ON R.A. BT X4 LAST BM THIS AM PER PT. VOIDS SBA TO BATHROOM. WITH FWW. BED IN LOW POSITION, CALL LITE IN REACH, BED ALARM ON FOR SAFETY. ON CAMERA
--- NOTE | 2020-06-23 10:08 | NUR ---
DR BUCKNER IN ROOM. REQUEST ADD ZYPREXA PO 5MG Q6P. DONE
--- NOTE | 2020-06-23 16:34 | NUR ---
PT CONTINUES TO CALL OUT REGULARLY, LESS THAN THIS AM. DID TAKE NAP THIS LATE. MORNING. PT STATES FEELING SOME BETTER WITH ANX THIS AFT. BUT IS STILL QUITE BUSY GETTING UP. NO OTHER CONCERNS NOTED TODAY. BED IN LOW POSITION, CALL LITE IN REACH, BED ALARM ON FOR SAFETY
--- NOTE | 2020-06-25 06:08 | NUR ---
PT VERY CONFUSED THIS SHIFT AND ANXIOUS. MEDICATED FOR AGITATION FIRST WITH SEROQUEL, THEN ZYPREXA IM PER EMAR. PT USES FURNITURE TO BALANCE WITH UNSTEADY GAIT THIS SHIFT. FALL RISK, BED ALARM ON. NO IV AT THIS TIME, PLAN TO D/C TO [facility]ORY CARE.
--- NOTE | 2020-06-26 05:40 | NUR ---
PT IS ALERT, CONFUSED, WEAK UNSTEADY GAIT. 1-ASSIST TO BSC. REDNESS IN ABD FOLD. MEDICATED PER EMAR PT SLEPT WELL THROUGH MOST OF SHIFT. MEDS WITH APPLESAUCE. HYDRALAZINE GIVEN PER EMAR, RECCOMENDED FOR MANUAL BP. SETS OFF BED ALARM OFTEN.
--- NOTE | 2020-06-26 16:21 | NUR ---
SHIFT SUMMARY PT A&O TO SELF AND PLACE. PLEASANTLY CONFUSED. EASILY REDIRECTABLE BY STAFF. FORGETFUL. PT HAS EPISODES OF BED AND CHAIR EXITING ATTEMPTS, REDIRECTED SAFELY BY STAFF. PT AGITATED AT TIMES. PT MEDICATED FOR LOWER BACK PAIN PER EMAR. NO C/O CP, SOB, OR N&V. PT REQUIRES SUPERVISION WITH MEALS. PT RESTED IN BED AT THIS TIME. BED AT LOWEST POSITION WITH ALARM ON, CALL LIGHT WITHIN REACH.
--- NOTE | 2020-06-27 05:33 | NUR ---
SHIFT SUMMARY AOX2-SELF & FOLLOWING DIRECTIONS. PLEASENTLY CONFUSED. EASILY REDIRECTABLE. DENIES PAIN, N/V OR SOB. VSS. SET BED ALARM OFF 2X, TRYING TO GET OOB TO USE RESTROOM. HAD LRG LOOSE INCONTINENT BM. AWAITING PLACEMENT. CALL LIGHT IN REACH.
--- NOTE | 2020-06-27 17:46 | NUR ---
SHIFT SUMMARY PT WAS VERY SLEEPY THIS AM BUT WOKE UP AROUND 1100. PT ORIENTED TO SELF AND FOLLOWING DIRECTIONS ONLY. NO COMPLAINTS OF PAIN AT THIS TIME. PT UP TO [facility] [place]IST. BLOOD PRESSURE HAS BEEN ELEVATED. HYDRALAZINE ADMINISTERED PER EMAR. NO ACUTE CHANGES THIS SHIFT. WILL CONTINUE TO MONTIOR. CALL LIGHT IN REACH.
--- NOTE | 2020-06-28 04:28 | NUR ---
SHIFT SUMMARY NO ACUTE CHANGES THIS SHIFT. AOX2-PLACE & SELF. FOLLOWS SIMPLE DIRECTIONS. PLEASENT & COOPERATIVE c CARE. REPORTED 10/31 PAIN ALLOVER, MEDICATED 1X c NORCO PER ORDERS, PT ABLE TO REST COMFORTABLY T/O NIGHT AFTER. AWAITING PLACEMENT. CALL LIGHT IN REACH. WILL MONITOR UNTIL DAY NURSE ASSUMES CARE.
--- NOTE | 2020-06-28 18:42 | NUR ---
SHIFT SUMMARY: PATIENT WITH VERY FLAT AFFECT, WITHDRAWN. REPEATEDLY DISROBING, MOVING FROM BSC TO CHAIR TO BED, APPEARED RESTLESS. STRAIGHT CATH X 1 THIS SHIFT. WAS HAVING FREQUENT BM'S THIS MORNING, NONE THIS AFTERNOON. DENIED PAIN.
--- NOTE | 2020-06-28 19:15 | NUR ---
ASSUMED CARE RECEIVED REPORT FROM YOON TURNER. PT SITTING ON SIDE OF BED, IN NO ACUTE DISTRESS. NO ACUTE NEEDS ASSESSED AT THIS TIME. CALL LIGHT, POSSESSIONS IN REACH.
--- NOTE | 2020-06-29 05:45 | NUR ---
NET SOFTWARE ARCHITECT SUMMARY PT ASLEEP, IN NO ACUTE DISTRESS. NO ACUTE CHANGES IN CONDITION TO REPORT OVERNIGHT, SLEPT T/O. VS REVIEWED, PT HYPERTENSIVE, MEDICATED WITH PRN HYDRALAZINE PER EMAR; BP'S STABLE, OTHER VS WNL. DENIES PAIN. BLADDER SCANNED PER ORDERS, <300ML, NO STRAIGHT CATH NEEDED. PT DENIES NEEDS AT THIS TIME. CALL LIGHT, POSSESSIONS IN REACH. BED IN LOW POSITION WITH ALARMS ON. WILL REPORT OFF TO DAY RN.
--- NOTE | 2020-06-29 11:30 | NUR ---
BLADDER SCAN SHOWED 330 ML. STRAIGHT CATH X 1 USING STERILE TECHNIQUE, RETURN OF 400 ML URINE, MALODOROUS AND CONCNETRATED. PT TOELRATED WELL.
--- NOTE | 2020-06-29 18:17 | NUR ---
SHIFT SUMMARY: PATIENT SLEPT MOST OF THE DAY. WHEN AWAKE, SHE EXHIBITS CATATONIC-LIKE BEHAVIOR, WHICH WAS ALSO NOTICED BY Gil HERRON RN FROM CASE MANAGEMENT. MOVEMENT IS VERY SLOW, STARES STRAIGHT AHEAD, MASK-LIKE AFFECT, DROOLS. DIFFICULT TO REDIRECT. IS NOT EATING, EVEN WITH TRAY SET UP. ALSO NOT DRINKING MUCH; BLADDER SCAN AT ~1630 SHOWED < 100 L IN BLADDER. BP ELEVATED TO 187/115, HR 111; GAVE HYDRALAZINE PO WITH RESULTING BP 140/93 HR 106. UNABLE TO GIVE PM CARVEDILOL SHE WAS TOO SLEEPY TO SWALLOW SAFELY.
--- NOTE | 2020-06-29 19:05 | NUR ---
ASSUMED CARE RECEIVED REPORT FROM YOON TURNER. PT LYING IN BED QUIETLY, IN NO ACUTE DISTRESS. NO ACUTE DISTRESS NOTED AT THIS TIME. CALL LIGHT, POSSESSIONS IN REACH, BED IN LOW POSITION WITH ALARMS ON.
--- NOTE | 2020-06-30 06:46 | NUR ---
LIEUTENANT SHIFT SUPERVISOR SUMMARY PT ASLEEP, IN NO ACUTE DISTRESS. VS REVIEWED,WNL. NO C/O PAIN. PT INCREASINGLY CONFUSED T/O NIGHT, WITH VISUAL HALLUCINATIONS. FLAT AFFECT, CATATONIC, WITH UNPURPOSEFUL MOVEMENTS. NO S/S NMS NOTED, PT AFEBRILE. SLEPT T/O MUCH OF THE NIGHT AFTER HS MEDICATIONS GIVEN. BLADDER SCAN OF 260 THIS AM. PT DENIES NEED TO USE BSC. NO ACUTE NEEDS ASSESSED AT THIS TIME. CALL LIGHT, POSSESSIONS IN REACH, BED IN LOW POSITION WITH ALARMS ON. REPORT GIVEN TO YOON PATEL.
--- NOTE | 2020-06-30 14:25 | NUR ---
Made a visit to pt today, the floor nurse reports pt has a DNR polst on file. Dr. Benson notified, code status now changed to DNR. Pt has had a change in condition. She is staring off into the distance, eyes are dilated and fixed. She continues to talk to staff and yell out in general, but she is no longer making eye contact. Per YOON Smith, pt no longer feeding herself x's 2 days. Her affect remains flat. Placed call to pt's daughter Le, we discussed the change in condition. I gently explained that while we can offer bites of food, we cannot force her to chew or swallow her food.' Plan to call daughter again before leaving for the afternoon with any updates.
--- NOTE | 2020-06-30 18:23 | NUR ---
SHIFT SUMMARY PT A&O TO SELF. AT START OF SHIFT SHE WAS UNAROUSABLE WITH STABLE VITALS. MID MORNING PT WOKE UP AND WAS ABLE TO ANSWER SIMPLE QUESTIONS. 1X TRANSFER TO CHAIR. WHEN IN CHAIR PT TRIED TO TRANSFER SELF MULTIPLE TIMES AND NEEDED TO BE REDIRECTED AND ENCOURAGED TO SIT. PT CYCLED THROUGH PHASES OF LETHARGY. STRAIGHT CATH AT 1300 HAD AN OUTPUT OF 575ML. PT HAD MILKY WHITE VAGINAL DISCHARGE PRE STRAIGHT CATH AND URIN WAS TEA COLOR WITH FOUL SMELL. PT JUST CHANGED AND REPOSITIONED.
--- NOTE | 2020-06-30 20:31 | NUR ---
RESTING COMFORTABLY IN BED; CHEERFUL; ALERT AND ORIENTED X 1; ABLE TO FOLLOW SIMPLE VERBAL COMMANDS.
--- NOTE | 2020-07-01 03:13 | NUR ---
SHIFT SUMMARY: 64 Y/O FEMALE RESTED COMFORTABLY ALL SHIFT; ALERT AND ORIENTED X 2, ABLE TO FOLLOW SIMPLE VERBAL COMMANDS; PTS THOUGHT PROCESS IS DISORGANIZED WITH PATIENT ONLY ABLE TO ANSWER YES AND NO RESPONSES; PT NOTED TO STARE AT OBJECTS WHEN TRYING TO COMMUNICATE WITH STAFF; DENIES PAIN OR NAUSEA; BED ALARM APPLIED FOR SAFETY, BED LOW POSITION WITH CALL LIGHT AT SIDE.
[2020-07-01 05:57] LABS: BASOPHILS ABSOLUTE AUTO 0.05 K/mm3 (0.00-0.23); BASOPHILS PERCENT AUTO 1 % (0-2); EOSINOPHILS ABSOLUTE AUTO 0.01 K/mm3 (0.00-0.68); EOSINOPHILS PERCENT AUTO 0 % (0-6); Hematocrit 44.6 % (33.0-51.0); Hemoglobin 14.9 g/dL (11.5-16.0); IMMATURE GRAN ABSOLUTE AUTO 0.03 K/mm3 (0.00-0.10); IMMATURE GRAN PERCENT AUTO 0 % (0-1); LYMPHOCYTES PERCENT AUTO 17 % (21-46); MONOCYTES ABSOLUTE AUTO 0.94 K/mm3 (0.16-1.47); MONOCYTES PERCENT AUTO 10 % (4-13); Mean Corpuscular HGB 29.8 pg (26.0-34.0); Mean Corpuscular HGB Conc 33.4 g/dL (31.5-36.5); Mean Corpuscular Volume 89 fL (80-100); Mean Platelet Volume 12.1 fL (9.1-12.4); NEUTROPHILS ABSOLUTE AUTO 6.55 K/mm3 (1.96-9.15); NEUTROPHILS PERCENT AUTO 72 % (41-73); Platelet Count 226 K/mm3 (150-400); RDW Coefficient Variation 12.3 % (11.7-14.2); RDW Standard Deviation 40.5 fL (35.1-46.3); White Blood Cell Count 9.08 K/mm3 (4.00-11.30)
[2020-07-01 06:12] LABS: Anion Gap 7 mmol/L (6-16); Blood Urea Nitrogen 20 mg/dL (8-24); Bun/Creatinine Ratio 24.7 (12.0-20.0); CO2, Blood 27 mmol/L (21-32); Calcium, Blood 9.1 mg/dL (8.5-10.1); Chloride, Blood 110 mmol/L (98-108); Creatinine, Blood 0.81 mg/dL (0.40-1.00); Glomerular Filtration Rate >60 (60-); Glucose, Blood 108 mg/dL (70-99); Potassium, Blood 3.4 mmol/L (3.5-5.5); Sodium, Blood 144 mmol/L (136-145)
--- NOTE | 2020-07-01 17:43 | NUR ---
SHIFT SUMMARY PT REFUSED TO GET UP IN CHAIR TODAY. HAS NOT VOIDED YET. FIRST BLADDER SCAN WITH 40ML ONLY. NEEDS ASSISTANCE WITH EATING TO GET FOOD TO HER MOUTH. BODY STIFF BUT ABLE TO LIFT HERSELF UP FROM THE WAIST. SPOKE WITH DAUGHTER ON THE PHONE WITH PALLIATIVE CARES ASSISTANCE.
--- NOTE | 2020-07-01 21:19 | NUR ---
BLADDER SCAN THIS EVENING SHOWED 689 MLS. STRAIGHT CATH DONE BUT ONLY 275 MLS OF OUTPUT WITH CATH. VAGINAL DISCHARGE NOTED PRIOR TO PROCEDURE. GOOD MARK CARE DONE BEFORE AND AFTER CATH.
--- NOTE | 2020-07-02 04:24 | NUR ---
SHIFT SUMMARY PT REMAINED IN BED. MOSTLY SLEPT. ANSWERS SIMPLE QUESTIONS. BLADDER SCANNED X 2 THIS EVENING. ONE OF THOSE SCANS RESULTING IN A STRAIGHT CATH PER ORDERS. SEE PREVIOUS NOTE. PT DIAPHORETIC AT TIMES. AFEBRILE. PT DENIES ANY PAIN. SOME REDNESS NOTED TO MARK AREA AND PANNUS, BARRIER CREAM APPLIED. PT DRANK WELL THIS EVENING, DRINKING APPROX 1 L IN WATER. VITAL SIGNS STABLE. WILL CONTINUE TO MONITOR.
[2020-07-02 08:51] LABS: Hemoglobin 14.6 g/dL (11.5-16.0); Mean Corpuscular HGB 29.9 pg (26.0-34.0); Mean Corpuscular HGB Conc 33.2 g/dL (31.5-36.5); Mean Corpuscular Volume 90 fL (80-100); Mean Platelet Volume 11.8 fL (9.1-12.4); Platelet Count 212 K/mm3 (150-400); RDW Coefficient Variation 12.3 % (11.7-14.2); RDW Standard Deviation 40.5 fL (35.1-46.3); Red Blood Cell Count 4.89 M/mm3 (3.80-5.20); White Blood Cell Count 7.57 K/mm3 (4.00-11.30)
[2020-07-02 09:06] LABS: Albumin, Blood 3.4 g/dL (3.4-5.0); Anion Gap 6 mmol/L (6-16); Blood Urea Nitrogen 19 mg/dL (8-24); CO2, Blood 28 mmol/L (21-32); Chloride, Blood 111 mmol/L (98-108); Creatinine, Blood 0.76 mg/dL (0.40-1.00); Glomerular Filtration Rate >60 (60-); Glucose, Blood 98 mg/dL (70-99); Phosphorus, Blood 3.7 mg/dL (2.5-4.9); Potassium, Blood 3.3 mmol/L (3.5-5.5); Sodium, Blood 145 mmol/L (136-145)
[2020-07-02 17:47] LABS: Magnesium, Blood 2.5 mg/dL (1.6-2.4)
[2020-07-02 18:12] LABS: Bilirubin, Urine Neg (Neg); Blood, Urine 3+ (Neg); Glucose Qualitative, Urine Neg (Neg); Ketones, Urine 1+ (Neg); Leukocyte Esterase, Urine 1+ (Neg); Nitrite, Urine Neg (Neg); Protein, Urine 2+ (Neg); Urobilinogen, Urine 1+ (Normal)
[2020-07-02 18:20] LABS: Appearance, Urine Hazy (Clear); Color, Urine Yellow (P-Yellow)
[2020-07-02 18:22] LABS: Bacteria Mod /hpf; Mucus Mod (0-Heavy); Squamous Epithelial Cells Few /hpf (Few)
--- NOTE | 2020-07-02 18:23 | NUR ---
SHIFT SUMMARY PT FOUND SLEEPING FREQUENTLY. WAS ON THE PHONE THIS AFTERNOON WITH FAMILY AND WAS VERY ANIMATED AND VERBAL WHILE ON PHONE. WOULDN'T RELINQUISH PHONE AFTER TALKING. BLADDER SCANNED FOR 244 BUT CATHED ANYHOW FOR UA. VAGINAL CULTURE OBTAINED WELL. TOLERATED BED BATH. HASN'T BEEN EATING WELL TODAY. WHEN FOOD PUT IN MOUTH SHE CHEWS IT FOR A LONG TIME AND DOESN'T ALWAYS SWALLOW IT. DRINKS WELL AND WHATEVER IS OFFERED. SUPPLEMENTS GIVEN FOR POOR EATING. COCCYX RED WITH BED BATH AND DRESSING APPLIED FOR PROTECTION.
--- NOTE | 2020-07-03 04:23 | NUR ---
SHIFT SUMMARY NO ACUTE CHANGES THIS SHIFT. PT CONTINUES WITH NO VOIDING. LAST BLADDER SCAN READING 70 MLS. WILL SCAN ONE LAST TIME THIS AM AND STRAIGHT CATH PER ORDERS IF NEEDED. PT SLEPT MOST OF THE EVENING. A/O X 1. PT WILL ANSWER SIMPLE QUESTIONS MOST OF THE TIMES. SOMETIMES WILL NOT RESPOND. RESPONSES ARE DELAYED. CONTINUES TO HAVE SOME VAGINAL DISCHARGE. PT VERY STIFF AND SLOW WITH MOVEMENTS. PT RESTING IN BED AT THIS TIME. VITAL SIGNS STABLE. WILL CONTINUE TO MONITOR.
--- NOTE | 2020-07-03 17:18 | NUR ---
Bladder scan 400cc straight cath using sterile process @1630 for 480cc. Pt slept through process.
--- NOTE | 2020-07-03 17:30 | NUR ---
Pt has been resting eyes closed for most of shift. She can be roused with voice and sternal rub. She does not always verbally respond but opens eyes. At other times she continues to sleep with no response. Morning meds held until 1012 d/t aspiration risk. Discussed concerns with Dr. Wolff during am rounds. She is aware of clients condition and believes it is d/t latuda dosing. She reported that she was going to call Dr. Preciado personally. Recieved call from DR. Preciado, he reports he believes part on this may be advancing dementia. Latuda dose reduce from 120mg to 60mg and ativan dc'd. Client straight cathed at 1630 for 480cc. Pt repositioned and barrier cream appled. Coccyx with blanchable reddness. Client resting at this time. RR even and unlabored on RA. She is no apparent distress.Will continue to monitor until shift change
--- NOTE | 2020-07-03 19:38 | NUR ---
RECEIVED BEDSIDE REPORT FROM YOON PRATT. PT SITTING UP IN BED DRINKING WATER USING A STRAW WITHOUT DIFFICULTY. RA. NO IV ACCESS. NO TELE. NOTED CATATONIC STARE. ANSWERS WHEN NAME IS CALLED. PT ON LATUDA. NO NEEDS AT THIS TIME. WILL PROVIDE CARE T/O SHIFT. CALL LT IN REACH. BED ALARM ON.
--- NOTE | 2020-07-03 23:46 | NUR ---
BLADDER SCANNED PT, SCAN READ 160. ATTENDS, BUCIO PAD AND GOWN CHANGED. NOTED MEPILEX TO COCCYX.
--- NOTE | 2020-07-04 04:01 | NUR ---
SHIFT SUMMARY: PT RESTED T/O SHIFT. WHEN AWAKE CATATONIC STARE. LATUDA DOSE DECREASED.ANSWERS QUESTIONS. ON RA. NO TELE. NO COMPLAINTS OF PAIN, SOB, OR NAUSEA. MEDS WHOLE WITH APPLESAUCE. MEPILEX AND BARRIER CREAM TO COCCYX AREA TO PROTECT FURTHER SKIN BREAKDOWN. BLADDER SCAN AT MIDNIGHT 160. NO ACUTE CHANGES. WILL CONTINUE TO PROVIDE CARE UNTIL SHIFT REPORT.
[2020-07-04 05:15] LABS: Albumin, Blood 3.1 g/dL (3.4-5.0); Anion Gap 5 mmol/L (6-16); Blood Urea Nitrogen 17 mg/dL (8-24); Bun/Creatinine Ratio 22.5 (12.0-20.0); CO2, Blood 30 mmol/L (21-32); Calcium, Blood 8.9 mg/dL (8.5-10.1); Chloride, Blood 110 mmol/L (98-108); Creatinine, Blood 0.76 mg/dL (0.40-1.00); Glomerular Filtration Rate >60 (60-); Glucose, Blood 98 mg/dL (70-99); Magnesium, Blood 2.4 mg/dL (1.6-2.4); Phosphorus, Blood 4.1 mg/dL (2.5-4.9); Potassium, Blood 3.7 mmol/L (3.5-5.5); Sodium, Blood 145 mmol/L (136-145)
--- NOTE | 2020-07-04 15:43 | NUR ---
SHIFT SUMMARY PT AWAKE AT START OF SHIFT AND UNTIL AFTER BREAKFAST. PT THEN WENT TO SLEEP FOR A WHILE WHEN DR LEMUS HERE TO SEE HER. PT HAS BEEN CALM AND QUIET TO PRESENT; HAS ONLY ANS QUESTIONS WITH YES OR NO, IF AT ALL. PT MOSTLY JUST STARES AT THE WALL. DOES NOT FOCUS ON PERSON TALKING TO HER. VERY STIFF WITH MOVEMENTS. P/T IN ATTEMPTING TO WORK WITH PT TODAY. PT UP TO EOB AND THEN STOOD UP BREIFLY, VERY STIFFLY. LIDOCAINE PATCH TO L SHOULDER. PSYCH MEDICATIONS D/C'D BY DR ANDERSON. 1ST BLADDER SCAN FOR THIS SHIFT AT 188ml's. BP SHOWING ELEVATED D/T PT TENSING UP AND LIFTING ARM INTO AIR. WILL ATTEMPT TO RETAKE AND GET PT TO RELAX. DIET CHANGED TO MECH/GROUND MEAT, PT DOES NOT LIKE REGULAR TEXTURE FOODS. CALL LT IN REACH. BED ALARM ON FOR SAFETY.
--- NOTE | 2020-07-05 04:49 | NUR ---
SUMMARY PT HAD NO NEW CHANGES NOTED. PT REMAINS CATATONIC AND STIFF. PTABLE TO FOLLOW SOME DIRECTIONS. PT BLADDER SCANNED AND WAS STRIGHT CATHED W/ 550 ML REMOVED. PT HAS BEEN SLEEPING T/O SHIFT. PT CURRENTLY SLEEPING AND BREATHING EASY. PT CALL LIGHT IN REACH AND BED ALARM ON.
--- NOTE | 2020-07-05 13:16 | NUR ---
UPON MORNING ASSESSMENT PT IS CATATONIC , RESPONDING ONLY TO LOUD AND PAIN STIMULI. PT BODY IS RIGID AND STIFF, REQUIRING STAFF TO DO Q2 CHANGES . PATIENTS PUPILS 4 AND DOLL LIKE EXPRESSION. NO MEDS GIVEN DUE TO PT NOT RESPONSIVE. DOCTOR AWARE. WILL CONTINUE TO MONITOR.
--- NOTE | 2020-07-05 17:21 | NUR ---
[facility]. GAVE REPORT TO TA. PT WAS TAKEN BY [facility]. TO MEET THERE
--- NOTE | 2020-07-05 18:24 | NUR ---
PT HAS BEEN CATATONIC ALL SHIFT. NO MEDS GIVEN PT REMAINS ASPIRATION RISK AND IS UNABLE TO KEEP HER EYES OPEN LET ALONE SWALLOW. SHE RESPONDS SLIGHLTY TO PAINFUL STIMULI. PT HAD CT THIS SHIFT. WILL CONTINUE TO MONITOR.
--- NOTE | 2020-07-06 04:57 | NUR ---
SHIFT SUMMARY ASSUMED CARE OF PT AT 1900. AT THE SHIFT CHANGE. PT STARTED TO AWAKE AND ATTEMPT TO GET OUT OF BED. PT WAS SAT UP AND GIVEN WATER AND SOON FELL BACK TO SLEEP. PT WAS SLEEPING UNTIL AROUND 0230 WHEN SHE WAS BLADDER SCANNED AND AGAIN STAYED AWAKE FOR ABOUT 1 HOUR AND FELL BACK ASLEEP. PT MUSCLES ARE STILL VERY STIFF. CALL LIGHT IN REACH, BED IN LOWEST POSTION, BED ALARM ON.
--- NOTE | 2020-07-06 17:53 | NUR ---
PATIENT A/OX2, REPOSITIONING Q2 HOURS. BLISTERS ON R/L BUTTOCKS WITH REDNESS SURROUNDING, PICS TAKEN AND PLACED ON CHART. PATIENT VERY SEDATED AND DIFFICULT TO AROUSE THIS AM, MORE AWAKE THIS AFTERNOON. B/P ELEVATED THIS AFTERNOON AND HYDRALAZINE ORDERED TO TREAT. ABLE TO TAKE PILLS ONE AT A TIME WITH WATER. STRAIGHT CATH DONE THIS AM, BLADDER SCAN THIS EVENING WAS >200, WILL RECHECK. FALL PRECAUTIONS IN PLACE. POOR APPETITE, BUT DRINKING PLENTY OF FLUID.
[2020-07-06 20:24] LABS: Source, Urine Clean Catch
[2020-07-06 20:27] LABS: Bilirubin, Urine Neg (Neg); Blood, Urine 4+ (Neg); Glucose Qualitative, Urine Neg (Neg); Ketones, Urine Neg (Neg); Leukocyte Esterase, Urine 1+ (Neg); Nitrite, Urine Pos (Neg); Protein, Urine 2+ (Neg); Urobilinogen, Urine 1+ (Normal)
[2020-07-06 20:32] LABS: Appearance, Urine Hazy (Clear); Color, Urine Yellow (P-Yellow)
[2020-07-06 20:34] LABS: Granular Casts Rare /lpf (0); Hyaline Casts Rare /lpf (0-2); White Blood Cells, Urine 0-2 /hpf (0-5)
[2020-07-06 20:35] LABS: Bacteria Many /hpf; Squamous Epithelial Cells Few /hpf (Few)
--- NOTE | 2020-07-07 04:31 | NUR ---
SHIFT SUMMARY ASSUMED CARE OF PT AT 190. PT IS STILL CATATONIC. PT WAS ABLE TO WAKE UP THIS SHIFT FOR A COUPLE HOURS TO TAKE HER MEDICATION, PT WAS ABLE TO SWOLLOW PILLS. PT IS STILL VERY STIFF. PT HAS CATHETER INSERTED FOR POSSIBLE [place] TRANSFER, CHARGE NURSE SAID THAT THEY ARE AWAITING FOR THE NEUROLOGIST TO SEE CHART AND FOR A BED. CATHETER DRAINING YELLOW URINE. PT HAS EXCORIATED BOTTOM, POSSIBLY FROM REACTION TO MEPILEX, BANDAGE TAKEN OFF AND OPEN TO AIR. PT HAD INCREASED BP THIS SHIFT, NOTIFIED HOSPITALIST AND SAID TO GIVE EXTRA DOSE OF HYDRALAZINE, PT RESPONDED WELL. DAUGHTER CALLED ASKING FOR UPDATE. NIGHT HOSPITALIST BUSY SO THIS NURSE REFERED PT TO WAIT UNTIL MORENING SO DOCTOR CAN GO OVER RESULTS OF SCAN. ASSUMED DAUGHTER THAT PT WAS STABLE. CALL LIGHT IN REACH, BED IN LOWEST POSITION.
--- NOTE | 2020-07-07 17:42 | NUR ---
PATIENT ASLEEP MOST OF THIS SHIFT, WOKE BREFLY THIS AM FOR A BATH AND BREAKFAST. EATING VERY LITTLE, NEEDS ASSISTANCE WITH MEALS. LIMBS VERY STIFF AND RIGID. BLISTERS TO BUTTOCKS HEALING AND REMAIN OPEN TO AIR. TURNING Q2 HOURS. VSS, ON RA. REPEAT HEAD CT IN AM. FALL PRECAUTIONS IN PLACE PER UNIT PROTOCOL. DENIES ANY PAIN OR DISCOMFORT.
--- NOTE | 2020-07-08 04:27 | NUR ---
SHIFT SUMMARY ADMITTED FOR TOXIC METABOLIC ENCEPHALOPATHY. PT IS A DNR. PT CATATONIC AND MINIMALLY RESPONSIVE DURING THE SHIFT. MEDICATIONS HELD DUE TO CATATONIC STATE. REPOSITIONED Q2 DUE TO INACTIVITY OF PT. PUPILS 4 MM AND FIXED WHEN PT OPENS EYES. NO VERBAL RESPONSE BUT WITHDRAWS FROM PAIN. BARRIGA WITH MINIMAL DARK OUTPUT. PT HAS HAD NO ORAL INTAKE THIS SHIFT. AWAITING PLACEMENT.
--- NOTE | 2020-07-08 04:57 | NUR ---
CTA/STUDENT NURSE I HAVE ASSESSED THIS PT. I HAVE READ THIS PRINCIPAL CYBER ENGINEER'S DOCUMENTATON AND I AGREE WITH IT. SHIFT SUMMARY IN PRINCIPAL CYBER ENGINEER NOTES
[2020-07-08 09:46] LABS: Hemoglobin 14.9 g/dL (11.5-16.0); Mean Corpuscular HGB Conc 33.1 g/dL (31.5-36.5); Mean Corpuscular Volume 91 fL (80-100); Mean Platelet Volume 11.9 fL (9.1-12.4); Platelet Count 201 K/mm3 (150-400); RDW Coefficient Variation 12.4 % (11.7-14.2); RDW Standard Deviation 40.5 fL (35.1-46.3); Red Blood Cell Count 4.97 M/mm3 (3.80-5.20); White Blood Cell Count 8.08 K/mm3 (4.00-11.30)
[2020-07-08 10:03] LABS: Albumin, Blood 3.1 g/dL (3.4-5.0); Anion Gap 6 mmol/L (6-16); Blood Urea Nitrogen 20 mg/dL (8-24); Bun/Creatinine Ratio 27.7 (12.0-20.0); CO2, Blood 28 mmol/L (21-32); Chloride, Blood 113 mmol/L (98-108); Creatinine, Blood 0.72 mg/dL (0.40-1.00); Glomerular Filtration Rate >60 (60-); Glucose, Blood 98 mg/dL (70-99); Phosphorus, Blood 3.8 mg/dL (2.5-4.9); Potassium, Blood 3.5 mmol/L (3.5-5.5); Sodium, Blood 147 mmol/L (136-145)
--- NOTE | 2020-07-08 11:12 | NUR ---
PT UPDATE AT 0730 THIS AM, PT WAS UNRESPONSIVE. PT HAD MINIMAL RESPONSE TO A STERNAL RUB, TRANSFER TO [facility], AND LAB DRAW THIS AM. PER NOC REPORT, THIS IS HOW THE PT WAS ALL NIGHT. PT NOW AWAKE, STARING INTO SPACE, AND CAN VERBALIZE MINIMAL WORDS. PT UNABLE TO RESPOND MEANINGFULLY TO THIS RN. DR. STEWART AWARE OF CURRENT FLUCTUATION IN PT ALERTNESS. PALLIATIVE CARE ALSO INVOLVED.
--- NOTE | 2020-07-08 11:43 | NUR ---
Attempted to visit. Pt getting bedbath at this time. Case conferenced with RN again and reviewed labs and medications. Pt has woken up since my previous case conf with RN. She is conversant and has taken in an ensure drink. Plan is to encourage PO intake. reported no change in CT results to RN. Also reviewed CM notes for plan of care/dc planning. They are trying to find appropriate placement for pt in memory care/dementia facility/unit. Will return as needed/indicated.
--- NOTE | 2020-07-08 14:00 | NUR ---
TRANSFERED PT TRANSFERED TO ROOM 333. REPORT GIVEN TO JOHNNY FERMIN RN. PT SLEPT TO TRANSFER.
--- NOTE | 2020-07-08 14:54 | NUR ---
ASSUMED CARE OF PATIENT UPON HER TRANSFER FROM ROOM 347 TO ROOM 333. PT SLEEPING SOUNDLY. BARRIGA CATHETER DRAINING BETHEL URINE. SKIN IS PALE AND COOL. CALL LIGHT AND BELONGINGS PLACED IN PATIENT'S REACH. BED ALARM ON, SIDE RAILS UP X 3.
--- NOTE | 2020-07-08 19:15 | NUR ---
SHIFT SUMMARY: NO ACUTE EVENTS SINCE TRANSFER. PT AROUSED TO THE SOUND OF THE PHONE RINGING, WAS ABLE TO BE AWAKE ENOUGH TO HOLD SHORT CONVERSATION, SPEECH CLEAR AND MADE SENSE. AFTER CONVERSATION, WAS AWAKE BUT STARING STRAIGHT AHEAD AND ROCKING IN THE BED. STARTED IV FOR DEXTROSE INFUSION. WAS AWAKE ENOUGH TO TAKE PILLS AT 1700. DID NOT EAT DINNER, BUT DRANK AN ENSURE.
--- NOTE | 2020-07-09 04:01 | NUR ---
Shift Summary A/Oxself. Opening eyes to name. Denies pain. Answers minimally with one word responses and nods/head shakes to simple questions. Slept mostly. Meds crushed with applesauce. Patient appears contracted and stiff with extremities and torso. Reposition and ROM. No acute changes, remains catatonic with blank stares and no eye contact. WCTM.
[2020-07-09 05:25] LABS: Hematocrit 42.9 % (33.0-51.0); Hemoglobin 14.3 g/dL (11.5-16.0); Mean Corpuscular HGB 30.4 pg (26.0-34.0); Mean Corpuscular HGB Conc 33.3 g/dL (31.5-36.5); Mean Corpuscular Volume 91 fL (80-100); Mean Platelet Volume 12.1 fL (9.1-12.4); Platelet Count 190 K/mm3 (150-400); RDW Coefficient Variation 12.2 % (11.7-14.2); RDW Standard Deviation 40.2 fL (35.1-46.3); Red Blood Cell Count 4.71 M/mm3 (3.80-5.20); White Blood Cell Count 8.41 K/mm3 (4.00-11.30)
[2020-07-09 05:55] LABS: Anion Gap 5 mmol/L (6-16); Blood Urea Nitrogen 17 mg/dL (8-24); Bun/Creatinine Ratio 27.3 (12.0-20.0); CO2, Blood 30 mmol/L (21-32); Calcium, Blood 8.7 mg/dL (8.5-10.1); Chloride, Blood 107 mmol/L (98-108); Creatinine, Blood 0.62 mg/dL (0.40-1.00); Glomerular Filtration Rate >60 (60-); Glucose, Blood 125 mg/dL (70-99); Phosphorus, Blood 3.2 mg/dL (2.5-4.9); Potassium, Blood 3.2 mmol/L (3.5-5.5); Sodium, Blood 142 mmol/L (136-145)
--- NOTE | 2020-07-09 18:18 | NUR ---
SHIFT SUMMARY: NO ACUTE EVENTS. PATIENT APPEARS CATATONIC WHEN NOT SLEEPING, BUT IS ABLE TO SPEAK IN FULL SENTENCES AND ANSWER QUESTIONS WHEN FAMILY CALLS ON THE PHONE. IS NOT EATING, EVEN WITH ASSISTANCE, BUT WILL DRINK ENSURE AND WATER. HAVING FREQUENT BM'S; BISACODYL HELD. SKIN IS BECOMING EXCORIATED NEAR ANUS, USING ORANGE CREAM FOR PROTECTION. IS COOPERATIVE WITH CARE SO FAR, NO BEHAVIORAL PROBLEMS OR OUTBURSTS. ATTEMPTED TO GET PT OOB TO CHAIR, BUT SHE WAS UNABLE TO FOLLOW DIRECTIONS AND LLE IS EXTREMELY WEAK.
--- NOTE | 2020-07-09 19:33 | NUR ---
pt more alert this evening will follow up again tomorrow.
--- NOTE | 2020-07-10 04:41 | NUR ---
SHIFT SUMMARY ALERT TO SELF. RESPONDS TO VERBAL STIMULI. REMAINED WITH EYES OPEN T/O SHIFT; DID NOT APPEAR TO REST MUCH. WHEN PUPILLARY REACTION CHECKED; ASKED IF SHE COULD SEE THE LIGHT SHINING. STATED "YES". DENIES ANY PAIN/DISCOMFORT. ANSWERS QUESTIONS WITH ONE WORD. VERY STIFF EXTREMITIES. ROUTINE BREIF CHANGES AND REPOSITIONING. BARRIGA SECURED AND DRAINING TO GRAVITY. VSS/AFEBRILE. NO ACUTE CHANGES NOTED. BED REMAINS IN LOWEST POSITION; ALARM ON. CALL LIGHT AND BELONGINGS WITHIN REACH. CONTINUE WITH CURRENT PLAN OF CARE. REPORT TO ONCOMING RN.
--- NOTE | 2020-07-10 17:01 | NUR ---
SHIFT SUMMARY- PT HAS BEEN SLEEPING INTERMITENTLY THROUGHOUT THIS SHIFT. SHE IS DRINKING ENSURES WITH ASSISTANCE. PT WORKED WITH HER TODAY AND REPORTED NOT MUCH IMPROVMENT. HER BED IS IN THE LOW POSITION CALL LIGHT DESIREE DUKES.
--- NOTE | 2020-07-11 03:54 | NUR ---
SHIFT SUMMARY: VSS. AFEB. 02 99% ON RA. VERY MINIMAL RESPONSE AT THE START OF THE NIGHT. PT KEEPING EYES CLOSE AND ONLY RESPONDING W/ 1 WORD. THIS MORNING PT APPEARS AGITATED, IS ATTEMPTING TO GET UP OUT OF BED AND IS SPEAKING IN SHORT SENTENCES. PT ASKS, "WOULD YOU HELP ME PLEASE", WHEN ASKED WITH WHAT, PT REPLIES, "MY PILLOW" WHILE HOLDING AN EXTRA PILLOW IN FRONT OF HER. PT CONFUSED AND UNABLE TO STATE WHY SHE IS TRYING TO GET UP OOB. F/C PATENT AND DRAINING CLEAR YELLOW URINE. INCONTINENT OF STOOL. WILL HOLD CUP AND DRINK FROM STRAW WHEN PLACED IN HER HAND. PT GRABBING AT STAFF AND SQUEEZING ARMS AND HANDS WHEN WITHIN HER REACH. PRN ANALGESIC ADMINISTERED. WCTM. BED LOW, BED ALARM ON.
--- NOTE | 2020-07-11 16:14 | NUR ---
SHIFT SUMMARY- PT HAS SLEPT INTERMITENTLY. SHE RESPONDS TO VERBAL STIMULI. SHE IS DRINKING ENSURE. SHE HAD AN INC. BM. SHE RECIEVED A BED BATH THIS SHIFT. TELEVISION NEWS PHOTOGRAPHER DID AN INTERVIEW WITH A CARE FACILITY FOR [facility]. HER BARRIGA IS PATIENT AND DRAINING. SHE IS RECIEVING IV FLUIDS. HER BED IS IN THE LOW POSTION WITH THE ALARM ON, AND CALL LIGHT IS WITIN REACH.
--- NOTE | 2020-07-12 04:30 | NUR ---
SHIFT SUMMARY PT HAS BEEN RESTLESS THIS EVENING. HAS NOT SLEPT AT ALL. REACHING FOR STAFF AND THROWING LEGS OVER THE BED RAILING THROUGHOUT THE NIGHT. CONFUSED. BED ALARM ON. BARRIGA CATHETER PATENT AND DRAINING LIGHT YELLOW URINE. GOOD OUTPUT THIS EVENING. PT DENIES ANY PAIN. VITAL SIGNS STABLE. CONTINUES TO AWAIT PLACEMENT. WILL CONTINUE TO MONITOR AND REPORT TO DAY RN.
[2020-07-12 05:54] LABS: Albumin, Blood 3.1 g/dL (3.4-5.0); Anion Gap 5 mmol/L (6-16); Blood Urea Nitrogen 8 mg/dL (8-24); Bun/Creatinine Ratio 13.2 (12.0-20.0); CO2, Blood 31 mmol/L (21-32); Calcium, Blood 8.8 mg/dL (8.5-10.1); Chloride, Blood 104 mmol/L (98-108); Creatinine, Blood 0.61 mg/dL (0.40-1.00); Glomerular Filtration Rate >60 (60-); Glucose, Blood 111 mg/dL (70-99); Phosphorus, Blood 3.3 mg/dL (2.5-4.9); Potassium, Blood 3.3 mmol/L (3.5-5.5); Sodium, Blood 140 mmol/L (136-145)
--- NOTE | 2020-07-12 17:59 | NUR ---
medicated for agitation, but pt now hard to rouse, had been swinging legs out of bed and worried the pt would pull out her del cid, recommended pulling to reduce chance of UTI, del cid removed, pt cleaned and depends placed, took medication whole in as, worked with pt but could not stand on own, will try to give a smaller dose for agitation tomorrow, will continue to treat and monitor until share bsr with noc nurse and pt
--- NOTE | 2020-07-12 20:15 | NUR ---
TRANSFER REPEATEDLY ATTEMPTING TO EXIT BED. OK TO TRANSFER. BEDSIDE REPORT GIVEN TO YOON GROVER. PATIENT ALERT YET CONFUSED. HX DEMENTIA, STROKE, BRAIN ANEURYSM WITH SERVICE COUNTER CASHIER SHUNT. IV PATENT AND CONTINUES TO RUN D5 @ 100 ML/HR. TANSFER ASSISTANCE REQUIRED. BED IN LOWEST POSITION; ALARM ON.
--- NOTE | 2020-07-12 20:18 | NUR ---
transfer report from Rola NETTLES on PT transferred at 1999 from room 333 to room 351 due to high fall risk behaviors. Has a pacemaker vent shunt * hx of brain anursym. PT had foey cath dc earlier today & expresses need to void just had attends changed & no void. Will bladder scan for retention. Bedside report from Rola & PT alert confused . Psych problems on psych meds. Fall & skin at risk precautions, reportedly has several pressure sores & yeasty like rash in skin folds. Assumed care personal belongings to room 2000.
--- NOTE | 2020-07-12 22:53 | NUR ---
PT has been anxious & trying to climb out of bed since being transfeered to room 350 at 2000. She had del cid cath which was dc sometime during day & PT unable to void. Incontient of migue connor bm x 2 . Used bedpan 0 void. bladder scan per urinary cath protocol & greater than 999 ml urine. Will straight cath per protocol.
--- NOTE | 2020-07-13 03:14 | NUR ---
PT continues to have no void post del cid cath removal . Bladder scanned for greater than 999 & st cath for 800 ml . $ hours later PT had urine retained of 745. Still unable to void. Constantly oozes pasty brown stool & has very excoriated perianal & groin red rash which was treated with karacleanse wash & apply barrier crean & calmaseptic. Some inprovement noted. Will straight cath repeat bladder scan as per protocol.
--- NOTE | 2020-07-13 03:53 | NUR ---
DR ALBA called to discuss 0 void after del cid cath dc & greater than 999 retention then after straight cath of 800 bladder scanned for [address] rx nystatin cream bid to excoriation to chuck& anal area bid & foey cath for urinary retention. PT with reoccuring UTI unable to completely empty bladder even with catheter. PT continues otooze PAsty brown stool constantly & has very excoriated skin. skin care done repeatedly.
[2020-07-13 05:25] LABS: BASOPHILS ABSOLUTE AUTO 0.06 K/mm3 (0.00-0.23); BASOPHILS PERCENT AUTO 1 % (0-2); EOSINOPHILS PERCENT AUTO 1 % (0-6); Hemoglobin 16.3 g/dL (11.5-16.0); IMMATURE GRAN ABSOLUTE AUTO 0.11 K/mm3 (0.00-0.10); IMMATURE GRAN PERCENT AUTO 1 % (0-1); LYMPHOCYTES ABSOLUTE AUTO 1.62 K/mm3 (0.84-5.20); LYMPHOCYTES PERCENT AUTO 17 % (21-46); MONOCYTES ABSOLUTE AUTO 1.02 K/mm3 (0.16-1.47); MONOCYTES PERCENT AUTO 11 % (4-13); Mean Corpuscular HGB 30.6 pg (26.0-34.0); Mean Corpuscular HGB Conc 36.2 g/dL (31.5-36.5); Mean Corpuscular Volume 84 fL (80-100); NEUTROPHILS ABSOLUTE AUTO 6.59 K/mm3 (1.96-9.15); NEUTROPHILS PERCENT AUTO 69 % (41-73); RDW Coefficient Variation 12.1 % (11.7-14.2); RDW Standard Deviation 36.9 fL (35.1-46.3); Red Blood Cell Count 5.33 M/mm3 (3.80-5.20)
[2020-07-13 05:26] LABS: Mean Platelet Volume 12.4 fL (9.1-12.4); Platelet Count 169 K/mm3 (150-400)
[2020-07-13 05:33] LABS: Anion Gap 7 mmol/L (6-16); Blood Urea Nitrogen 10 mg/dL (8-24); Bun/Creatinine Ratio 17.4 (12.0-20.0); CO2, Blood 31 mmol/L (21-32); Calcium, Blood 8.6 mg/dL (8.5-10.1); Chloride, Blood 105 mmol/L (98-108); Creatinine, Blood 0.58 mg/dL (0.40-1.00); Glomerular Filtration Rate >60 (60-); Glucose, Blood 121 mg/dL (70-99); Potassium, Blood 3.2 mmol/L (3.5-5.5); Sodium, Blood 143 mmol/L (136-145)
--- NOTE | 2020-07-13 06:41 | NUR ---
PT started yelling help me help me Pradeep Lázaro & rolling around repeatedly in bed attempting to throw herself off bed. Called rehabilitation clerk Yi who administered IM zyprexa 10 mg with minimal effect. Vest restraint applied & she continued to roll around in bed so ankle resraints were applied after discussion with . Continued very loudly screaming for help from Lázaro, God & Pradeep despite zyprexa rx. Close observation to prevent injury to self. PT has WATER GAS OPERATOR shunt in Brain has been checked for function this hospital stay.
--- NOTE | 2020-07-13 18:45 | NUR ---
SHIFT SUMMARY PT A&O TO SELF ONLY, PT CONT TO SCREAM AND YELL AND CONT TO PULL ON RESTRAINTS, PT COOPERATIVE WITH CARE SUCH MEDICATIONS AND HYGIENE CARE. PT CONT TO ATTEMPT IN BED EXITING W/O ASSISTANCE FROM STAFF. PT MEDICATED FOR PAIN PER EMAR. NO C/O CP, SOB OR N&V. PT CONT ON IV FLUIDS ORDERED. MEPILEX TO BUTTOCK AREA C/D/I TO AA. PT YELLING AT STAFF AT THIS TIME, NONSENSICAL SPEECH. BED AT LOWEST POSITION, SOFT ANKLE RESTRAINTS AND CHRISTY VEST IN PLACE ORDERED, BED ALARM ON. CALL LIGHT WITHIN REACH.
[2020-07-14 06:56] LABS: Albumin, Blood 3.1 g/dL (3.4-5.0); Anion Gap 5 mmol/L (6-16); Blood Urea Nitrogen 9 mg/dL (8-24); CO2, Blood 32 mmol/L (21-32); Calcium, Blood 8.9 mg/dL (8.5-10.1); Chloride, Blood 103 mmol/L (98-108); Creatinine, Blood 0.65 mg/dL (0.40-1.00); Glomerular Filtration Rate >60 (60-); Glucose, Blood 99 mg/dL (70-99); Phosphorus, Blood 4.2 mg/dL (2.5-4.9); Potassium, Blood 3.1 mmol/L (3.5-5.5); Sodium, Blood 140 mmol/L (136-145)
--- NOTE | 2020-07-14 07:25 | NUR ---
RELOCATION COMMISSIONER SUMMARY PT AAOX1 AND VERY CONFUSED. CONSTANTLY YELLING OUT NONSENSICAL THINGS, ESPECIALLY WHEN SHE IS ALONE IN THE ROOM. PT IS GENERALLY MORE CALM AND COOPERATIVE WHEN STAFF IS IN THE ROOM. MEDICATED FOR PAIN X2 WITH NORCO AND MEDICATED X1 WITH IM ZYPREXA FOR AGITATION. REMAINED IN CHRISTY VEST AND SOFT ANKLE RESTRAINTS THROUGH THE NIGHT. VSS, WILL CONTINUE TO MONITOR.
--- NOTE | 2020-07-14 17:56 | NUR ---
BARRIGA CATHETER BARRIGA CATH DISCONTINUED ORDERED. 1800 ML OUT OF BARRIGA BAG. PT TOLERATED WELL, DENIES ANY PAIN OR ANY DISCOMFORT.
--- NOTE | 2020-07-14 18:18 | NUR ---
SHIFT SUMMARY PT A&O TO SELF ONLY, CONFUSED, PT COOPERATIVE WITH CARE BUT IS CONSISTENTLY ATTEMPTING TO EXIT OUT OF BED W/O ASSISTANCE FROM STAFF. PT CONTINUES ON SOFT RESTRAINTS AND CHRISTY VEST ORDERED FOR PATIENT SAFETY. PT MEDICATED FOR PAIN PER EMAR. DENIES CP / SOB OR N&V. PT CONTINUES TO YELL AND ATTEMPT ON PULLING RESTRAINTS, ATTEMPTING TO BED EXIT W/O ASSISTANCE FROM STAFF. BED AT LOWEST POSITION, W/ ALARMS ON. CALL LIGHT WITHIN REACH.
--- NOTE | 2020-07-15 05:13 | NUR ---
SHIFT SUMMARY: VSS. AFEB. AAOX1. NO SPONTANEOUS VOID TONIGHT. STRAIGHT CATH X 1 PER ORDERS. PT IS MORE RELAXED AND IS RESTING QUIETLY AFTER STRAIGHT CATH. CONFUSED AND FORGETFUL, UNAWARE OF LIMITATIONS AND MAKES ATTEMPT TO GET OOB, PULLING AT RESTRAINT. REDIRECTS WELL, BUT QUICKLY FORGETS. IV FLUIDS INFUSING PER ORDERS. ANKLE RESTRAINTS REMOVED TONIGHT. PT OCCASIONALLY FLAILS LEGS BUT IS NOT THROWING THEM OVER THE EDGE OF THE BED. NO ACUTE OVERNIGHT EVENTS, WCTM. BED LOW, BED ALARM ON. CAMERA MONITORING IN PLACE.
--- NOTE | 2020-07-15 18:19 | NUR ---
SHIFT SUMMARY PT AAO TO SELF, VERY CONFUSED AND FORGETFUL, PT REDIRECTABLE AND COOPERATIVE WITH CARE. PT CONTINUES WITH BED EXITING BEHAVIOR W/O ASSISTANCE FROM STAFF, WHEN AWAKE PT CONT TO SCREAM AND YELL. NONSENSICAL SPEECH NOTED. PT MEDICATED FOR PAIN PER EMAR. NO C/O CP / SOB /N&V. CHRISTY VEST IN PLACE ORDER FOR PATIENT'S SAFETY, FREQUENT CHECKS. PT CALM AND RESTED IN BED AT THIS TIME. BED AT LOWEST POSITION. CALL LIGHT WITHIN REACH.
--- NOTE | 2020-07-16 05:21 | NUR ---
SHIFT SUMMARY: A/OX1. NOTED TO BE MORE ANXIOUS WHEN PAINFUL. ANXIETY PRESENTS PT YELLING, FLAILING LEGS, AND PERSEVERATION ON REARRANGING BED SIDE TABLE. EACH TIME AFTER RECEIVING ANALGESICS, PT APPEARS MORE RELAXED AND CONVERSATIONAL. STRAIGHT CATHED X 2 PER ORDERS. NO SPONTANEOUS VOIDS. SLEEPING INTERMITTENTLY. MAINTENANCE IV FLUIDS INFUSING PER ORDERS. NO ACUTE CHANGES OVERNIGHT. WCTM.
[2020-07-16 05:42] LABS: Anion Gap 2 mmol/L (6-16); Blood Urea Nitrogen 10 mg/dL (8-24); Bun/Creatinine Ratio 15.1 (12.0-20.0); CO2, Blood 30 mmol/L (21-32); Chloride, Blood 103 mmol/L (98-108); Creatinine, Blood 0.66 mg/dL (0.40-1.00); Glomerular Filtration Rate >60 (60-); Glucose, Blood 117 mg/dL (70-99); Sodium, Blood 135 mmol/L (136-145)
--- NOTE | 2020-07-16 19:47 | NUR ---
END OF SHIFT SUMMARY: PATIENT DENIED PAIN THROUGHOUT THE SHIFT UNTIL AFTER DINNER. PATIENT AT THIS TIME REPORTED HIGH PAIN IN HER LOWER BACK. MEDICATED PER PRNS. PATIENT DENIES OTHER INTERVENTIONS. PATIENT RESTED IN BED THROUGHOUT THE DAY. PATIENT ONLY ATTEMPTED TO GET OUT OF BED ONE TIME, EXPRESSING THAT SHE NEEDED TO VOID. PATIENT ABLE TO FOLLOW DIRECTIONS AND WAIT APPROPRIATELY FOR STAFF TO HELP HER. PATIENT UNABLE TO VOID INDEPENDENTLY. PATIENT STRAIGHT CATHED TO ASSIST WITH HER VOIDING. PATIENT DENIED EVER HAVING THIS PROBLEM BEFORE. DISCUSSED PATIENT'S CALM, COOPERATIVE MORNING WITH DR. NOVOA. NEW ORDER TO DISCONTINUE THE RESTRAINTS. PATIENT HAD IMPROVEMENT IN HER MENTATION THROUGHOUT THE DAY. SHE WAS ABLE TO FOCUS ON THE RN'S INSTRUCTIONS AND FOLLOW DIRECTIONS. SHE WAS ABLE TO ANSWER SOME ORIENTATION QUESTIONS APPROPRIATELY (EX: SHE KNEW SHE WAS IN A HOSPITAL AND WHERE SHE LIVES [facility] [place]). PATIENT SWALLOWED HER MEDICATIONS WITHOUT DIFFICULTY IN APPLESAUCE.
--- NOTE | 2020-07-17 03:44 | NUR ---
SHIFT SUMMARY: VSS. AFEB. AAOX1. PT CALM AND CONVERSATIONAL, THEN SUDDENLY BECOMES AGITATED, YELLING AND FLAILING LEGS. FRANTICALLY PICKING UP AND MOVING OBJECTS TO AND FROM BED SIDE TABLE. ATTEMPTS TO GET OOB X2 TONIGHT, REDIRECTS EASILY. NO SPONTANEOUS VOIDS- BLADDER SCANNED AND STRAIGHT CATHED PER ORDERS. MAINTENANCE IV FLUIDS INFUSING. BED LOW, BED ALARM ON, CAMERA MONITORING IN PLACE. NO ACUTE OVERNIGHT EVENTS. WCTM.
--- NOTE | 2020-07-18 02:24 | NUR ---
BARRIGA BLADDER SCAN WAS 764 SHORTLY AFTER 0000 TONIGHT, WAITED TO SEE IF PT HAD TO VOID OR WOULD BE INCONT. NO URINE PRODUCED. BARRIGA PLACED PER ORDERS OBTAINED ON DAY SHIFT SINCE PT HAS BEEN RECIEVING Q6H STRAIGHT CATH. 750ML URINE OUT. UA OBTAINED PER PROTOCAL. WILL MONITOR OUTPUT.
[2020-07-18 02:31] LABS: Source, Urine Catheter
[2020-07-18 02:35] LABS: Bilirubin, Urine Neg (Neg); Blood, Urine 1+ (Neg); Glucose Qualitative, Urine Neg (Neg); Ketones, Urine Neg (Neg); Leukocyte Esterase, Urine Neg (Neg); Nitrite, Urine Neg (Neg); Protein, Urine Neg (Neg); Specific Gravity, Urine 1.005 (1.003-1.022); Urobilinogen, Urine NORM (Normal)
[2020-07-18 02:39] LABS: Appearance, Urine Clear (Clear); Color, Urine Yellow (P-Yellow)
[2020-07-18 02:41] LABS: Bacteria Few /hpf; Squamous Epithelial Cells Few /hpf (Few); White Blood Cells, Urine 0-2 /hpf (0-5)
--- NOTE | 2020-07-18 05:49 | NUR ---
SHIFT SUMMARY AOX2-SELF, FOLLOWING SIMPLE DIRECTIONS. CONFUSED. DIFFICULTY REDIRECTING @TIMES. BECAME AGITATED, IMPULSIVE, AGRESSIVE, WOULD NOT LISTEN TO STAFF MEMBERS ABOUT STAYING IN BED OR W/C FOR SAFETY, MEDICATED 1X c 10MG ZYPREXA & PT ABLE TO REST COMFORTABLY T/O NIGHT. BLADDER SCAN 764ML, PLACED BARRIGA CATHETER PER ORDERS, READ PREVIOUS NOTE. DENIES PAIN, N/V, SOB. VSS. CALL LIGHT, BED ALARM ON FOR SAFETY. WILL MONITOR.
--- NOTE | 2020-07-18 13:52 | NUR ---
SEVERE ANXIETY. 1145: PATIENT WOKE WAS RESTLESS. WANTED TO GET UP TO THE BATHROOM FOR BM. UNABLE TO GO. WANTED BACK TO BED. STATES 10/10 PAIN "ALL OVER". NORCO GIVEN. PATIENT REQUESTS TO GO TO BEDSIDE COMMODE FOR BM AGAIN. UNABLE TO GO. RETURNED TO BED. DEEP BREATHING COACHING PERFORMED. PATIENT LIFTS LEGS OFF OF BED REPEATEDLY. SITS UP AND LIES DOWN. VERY RESTLESS AND AGITATED. STATES SINGING HELPS. PATIENT UNABLE TO SING AT THIS TIME. JUST REPEATS "I DON'T KNOW WHAT TO DO DESPITE COACHNG TO DEEP BREATH AND THERAPEUTIC TALK. 1222 ZYPREXA GIVEN. RESTLESS BEHAVIORS CONTINUE. PATIENT HAS MANY REQUESTS: FAN, HAND HOLDING, BEDSIDE COMMODE, SIT UP, LAY DOWN, COMMUNICATION, THERAPEUTIC PRESENCE. MYSELF AND OTHER STAFF: BULL FLOAT FINISHER AND NURSING STUDENTS REMAIN WITH PATIENT MUCH POSSIBLE. PATIENT SEEN BY [facility] DURING EXACERBATION. [facility] EXPRESSES CONCERN THAT PATIENT CANNOT HAVE IM ZYPREXA AT THEIR FACILITY. 1350: PATIENT NOW RESTING QUIETLY WITH EYES CLOSED.
--- NOTE | 2020-07-18 20:49 | NUR ---
ANXIOUS/RESTLESS PT VERY ANXIOUS, RESTLESS, DIFFICULT TO REDIRECT, SETTING OFF BED ALARM, YELLING, BANGING ON FURNITURE. STATING "I WANT MY PAIN MEDS" "I NEED MY MEDS" "I WANT MY ANXIETY MEDS". "COME ON" "I NEED HELP!!" "SOMEONE HELP" "PLEASE LETS DO THIS." WHOLE BODY IS SHAKING @TIMES c TREMORS/SPASTICITY. VERY FORGETFUL. TELL HER SOMETHING & SHE FOREGTS WITHIN A FEW MIN. KICKING LEGS CONSTANTLY WHILE IN BED OR SWINGING THEM OOB. WANTING UP. WANTING BACK TO BED. WANTING BACK UP. STATING SHE IS ANXIOUS OVER AND OVER. TRIED DEEP BREATHING, DISTRACTION c TELEVISION, PROVIDED SNACK, MEDICATED FOR PAIN, GAVE IM ZYPREXA. WILL GIVE SEROQUEL EARLIEST ALLOWED PER ORDERS & MONITOR.
[2020-07-19 05:15] LABS: BASOPHILS ABSOLUTE AUTO 0.04 K/mm3 (0.00-0.23); BASOPHILS PERCENT AUTO 1 % (0-2); EOSINOPHILS ABSOLUTE AUTO 0.16 K/mm3 (0.00-0.68); EOSINOPHILS PERCENT AUTO 3 % (0-6); Hematocrit 41.8 % (33.0-51.0); Hemoglobin 13.8 g/dL (11.5-16.0); IMMATURE GRAN ABSOLUTE AUTO 0.01 K/mm3 (0.00-0.10); IMMATURE GRAN PERCENT AUTO 0 % (0-1); LYMPHOCYTES ABSOLUTE AUTO 1.88 K/mm3 (0.84-5.20); LYMPHOCYTES PERCENT AUTO 30 % (21-46); MONOCYTES ABSOLUTE AUTO 0.63 K/mm3 (0.16-1.47); MONOCYTES PERCENT AUTO 10 % (4-13); Mean Corpuscular HGB 30.1 pg (26.0-34.0); Mean Corpuscular Volume 91 fL (80-100); Mean Platelet Volume 11.4 fL (9.1-12.4); NEUTROPHILS ABSOLUTE AUTO 3.53 K/mm3 (1.96-9.15); NEUTROPHILS PERCENT AUTO 56 % (41-73); Platelet Count 149 K/mm3 (150-400); RDW Coefficient Variation 12.1 % (11.7-14.2); RDW Standard Deviation 40.2 fL (35.1-46.3); Red Blood Cell Count 4.59 M/mm3 (3.80-5.20); White Blood Cell Count 6.25 K/mm3 (4.00-11.30)
[2020-07-19 05:30] LABS: Anion Gap 4 mmol/L (6-16); Blood Urea Nitrogen 12 mg/dL (8-24); Bun/Creatinine Ratio 17.9 (12.0-20.0); CO2, Blood 28 mmol/L (21-32); Calcium, Blood 8.6 mg/dL (8.5-10.1); Chloride, Blood 110 mmol/L (98-108); Creatinine, Blood 0.67 mg/dL (0.40-1.00); Glomerular Filtration Rate >60 (60-); Glucose, Blood 76 mg/dL (70-99); Potassium, Blood 3.8 mmol/L (3.5-5.5); Sodium, Blood 142 mmol/L (136-145)
--- NOTE | 2020-07-19 07:28 | NUR ---
SHIFT SUMMARY AOX1-SELF ONLY. CONFUSED. VERY ANXIOUS, RESTLESS, IMPULSIVE. DIFFICULT TO REDIRECT @BEGINNING OF SHIFT, READ PREVIOUS NOTE. VSS. MEDICATED 1X c IM ZYPREXA & c SCHEDULED SEROQUEL. HAD XL HARD BM LAST NIGHT & THEN ABLE REST SOUNDLY T/O NIGHT. BARRIGA PATENT & DRAINING CLEAR YELLOW URINE. AWAITING PLACEMENT. CALL LIGHT & BED ALARM ON FOR SAFETY.
--- NOTE | 2020-07-19 17:35 | NUR ---
SUMMARY PT RESTLESS IN BED, PT HAS BEEN RESTLESS T/O THE DAY, HAS BEEN UP IN THE CHAIR AND BACK TO BED CONSTANTLY, ABLE TO TAKE HER MEDS WHOLE, ABLE TO BE DISTRACTED WHEN SOMEONE IS IN THE ROOM WITH HER, PT CONSTANTLY CALLS OUT "HELP ME" OR "LETS GO" NON STOP INBETWEEN GETTING UP AND MOVING AROUND NON STOP, PT STATES SHE IS TIRED, CLOSES HER EYES AND THEN TWITCHES HER LEGS AND ARMS AND GETS UP AGAIN, PT STATES SHE CANNOT HOLD STILL, PT MED PER EMAR FOR ANXIETY AND AGITATION, PT THANKFUL AND COOPERATIVE WITH CARE WHEN SOMEONE IS IN THE ROOM WITH HER, PT REMAINS CONFUSED, VSS, WILL CONT TO MONITOR
--- NOTE | 2020-07-20 05:45 | NUR ---
SHIFT SUMMARY- PT. AGITATED DURING THE NIGHT, YELLING OUT FREQUENTLY. A&O TO SELF AND VERY ANXIOUS. ALSO C/O LOWER BACK PAIN. MEDICATED PER EMAR WITH GOOD EFFECT. SLEPT T/O THE REST OF THE NIGHT, NO APPARENT DISTRESS NOTED. BARRIGA CATHETER PATENT AND DRAINING. CALL LIGHT WITHIN REACH, SIDE RAILS UPX3, AND BED ALARM ON FOR SAFETY. WILL CONT TO MONITOR.
--- NOTE | 2020-07-20 18:05 | NUR ---
SUMMARY PT SITTING UP IN THE CHAIR AT THE BEDSIDE EATING DINNER, PT SLEPT FOR MOST OF THE DAY, PT NOW CALLING OUT "HELP ME" AND "COME ON LETS GO" FREQUENTLY, PT ANXIOUS AND RESTLESS, PT MED PER EMAR FOR C/O GENERALIZED PAIN, PT REMAINS CONFUSED AND IMPULSIVE, BED AND CHAIR ALARM ON FOR SAFETY, VSS, WILL CONTINUE TO MONITOR
--- NOTE | 2020-07-21 06:35 | NUR ---
SHIFT SUMMARY- PT. AGITATED AND VERY ANXIOUS T/O THE NIGHT. CONSTANTLY YELLING/CALLING OUT. SCHEDULED AND PRN MEDS GIVEN PER EMAR WITH MINIMAL EFFECT. PT. ASSISTED ONTO BSC, HAD LARGE BM. ABLE TO FALL ASLEEP EARLY THIS AM. VSS. CALL LIGHT WITHIN REACH, SIDE RAILS UPX2, AND BED ALARM ON FOR SAFETY. WILL CONT TO MONITOR.
[2020-07-21 07:59] LABS: BASOPHILS ABSOLUTE AUTO 0.04 K/mm3 (0.00-0.23); BASOPHILS PERCENT AUTO 1 % (0-2); EOSINOPHILS ABSOLUTE AUTO 0.15 K/mm3 (0.00-0.68); EOSINOPHILS PERCENT AUTO 3 % (0-6); Hematocrit 40.8 % (33.0-51.0); Hemoglobin 13.5 g/dL (11.5-16.0); IMMATURE GRAN ABSOLUTE AUTO 0.02 K/mm3 (0.00-0.10); IMMATURE GRAN PERCENT AUTO 0 % (0-1); LYMPHOCYTES ABSOLUTE AUTO 1.74 K/mm3 (0.84-5.20); LYMPHOCYTES PERCENT AUTO 30 % (21-46); MONOCYTES ABSOLUTE AUTO 0.58 K/mm3 (0.16-1.47); MONOCYTES PERCENT AUTO 10 % (4-13); Mean Corpuscular HGB 30.1 pg (26.0-34.0); Mean Corpuscular HGB Conc 33.1 g/dL (31.5-36.5); Mean Corpuscular Volume 91 fL (80-100); Mean Platelet Volume 11.2 fL (9.1-12.4); NEUTROPHILS ABSOLUTE AUTO 3.19 K/mm3 (1.96-9.15); NEUTROPHILS PERCENT AUTO 56 % (41-73); Platelet Count 162 K/mm3 (150-400); RDW Standard Deviation 39.9 fL (35.1-46.3); Red Blood Cell Count 4.49 M/mm3 (3.80-5.20); White Blood Cell Count 5.72 K/mm3 (4.00-11.30)
[2020-07-21 08:20] LABS: Anion Gap 2 mmol/L (6-16); Blood Urea Nitrogen 12 mg/dL (8-24); Bun/Creatinine Ratio 17.4 (12.0-20.0); CO2, Blood 31 mmol/L (21-32); Calcium, Blood 8.7 mg/dL (8.5-10.1); Chloride, Blood 108 mmol/L (98-108); Creatinine, Blood 0.69 mg/dL (0.40-1.00); Glomerular Filtration Rate >60 (60-); Glucose, Blood 88 mg/dL (70-99); Potassium, Blood 3.8 mmol/L (3.5-5.5); Sodium, Blood 141 mmol/L (136-145)
--- NOTE | 2020-07-21 17:16 | NUR ---
SHIFT SUMMARY PATIENT ALERT TO SELF THIS SHIFT. PATIENT IMPULSIVE AND CALLS OUT FREQUENTLY. PATIENT REORIENTED FREQUENTLY THROUGHOUT THIS SHIFT. PATIENT MEDICATED FOR ANXIETY AND PAIN THROUGHOUT THIS SHIFT. PATIENT ON BED ALARM AND CHAIR ALARM FOR SAFETY. PATIENT UP FREQUENTLY FROM BED TO CHAIR AND BACK. PATIENT CURRENTLY SITTING ON BEDSIDE.
--- NOTE | 2020-07-22 03:38 | NUR ---
SHIFT SUMMARY PATIENT HAD NO ACUTE CHANGES OBSERVED. ALERT TO SELF WITH HX OF DEMENTIA. IMPULSIVE CALLING OUT FREQUENTLY. PATIENT IS NOT ABLE TO ORIENT AT THIS TIME REPEATING QUESTIONS ALREADY ANSWERED. REPORTED BACK/NECK PAIN AND NORCO GIVEN PER EMAR. SCHEDULE SEROQUEL GIVEN. PIV REMAINS INTACT. VSS/AFEBRILE. DENIES SOB AND N/V. ONE ASSIST TO BSC. CALL LIGHT IN REACH. BED IN LOWEST POSITION AND ALARM ACTIVATED. WILL CONTINUE TO MONITOR UNTIL DAY SHIFT NURSE ASSUMES CARE.
--- NOTE | 2020-07-22 17:56 | NUR ---
SHIFT SUMMARY: NO ACUTE EVENTS. A&O X 1, RECOGNIZES FAMPAYAL'S VOICES OVER THE PHONE. SLEPT SOUNDLY UNTIL 1130. CALLS OUT "HELP ME" AND "COME ON" REPEATEDLY, AT TIMES QUITE LOUDLY. IS CALM WHEN STAFF IS IN THE ROOM, WANTS CONSTANT ATTENTION AND IS ALWAYS ASKING IF SHE CAN "HAVE SOMETHING", MEANING MEDICATION. WENT FROM BED TO CHAIR MANY TIMES, VERY ANXIOUS. C/O PAIN IN L SHOULDER AND FEET; MEDICATED PER EMASigifredo BARRIGA DRAINING CLEAR YELLOW URINE; REFUSED BATH AND CATH CARE D/T ANXIETY, BUT WAS EDUCATED THAT SHE WILL RECIEVE EITHER A BATH OR SHOWER TOMORROW ANXIETY OR NOT. MANIPULATIVE AT TIMES.
--- NOTE | 2020-07-22 19:25 | NUR ---
PATIENT HAVING INCREASED AGITATION. NOT ABLE TO REORIENT AT THIS TIME. CHANNEL MAN REPORTS PATIENT IS CALLING #[phone] PER EMERGENCY DEPT. PHONE REMOVED FROM PATIENT. HX DEMENTIA AND CONFUSED AT THIS TIME. ACTIVATED BED ALARM X THREE START OF SHIFT.
--- NOTE | 2020-07-22 20:35 | NUR ---
PATIENT HAD SEVEN BED EXIT ATTEMPTS. ON CAMERA AND BED ALARM. INCREASED AGITATION/CONFUSION AND NOT ABLE TO REORIENT AT THIS TIME.
--- NOTE | 2020-07-22 21:25 | NUR ---
HOSPITALIST YOLANDE BOARDING KENNEL OR CATTERY OPERATOR ORDERED CHRISTY VEST AND BILATERAL SOFT WRIST RESTRAINTS. PATIENT FALL RISK WITH MULTIPLE BED EXIT ATTEMPTS. INCREASED AGIATION T/O SHIFT.
--- NOTE | 2020-07-23 03:49 | NUR ---
SHIFT SUMMARY PATIENT HAD INCREASED AGITATION WITH YELLING/SCREAMING. OVER HALF DOZEN BED EXIT ALARMS, ON CAMERA. HOSPITALIST OYLANDE PICK UP MAN ORDERED CHRISTY VEST AND BILATERAL SOFT WRIST RESTRAINTS. SCHEDULE SEROQUEL GIVEN AND PRN ZYPREXA X TWO FOR AGITATION. PATIENT UNCOOPERATIVE AND NOT ABLE TO REORIENT AT THIS TIME. PATIENT WOULD CALM DOWN ENTERING HER ROOM AND ESCULATE WHEN STAFF LEFT YELLING AGAIN. FELL ASLEEP AROUND MIDNIGHT. BARRIGA PATENT AND DRAINING TO GRAVITY. REPORTED BACK/NECK PAIN AND NORCO GIVEN PER EMAR. BED IN LOWEST POSITION AND ALARM ACTIVATED. WILL CONTINUE TO MONITOR UNTIL DAY SHIFT NURSE ASSUMES CARE.
--- NOTE | 2020-07-23 22:27 | NUR ---
PATIENT YELLING/SCREAMING SINCE SHIFT CHANGE. ZYPREXA GIVEN FOR AGITATION WITH NO EFFECT AT THIS TIME. HOSPITALIST YOLANDE ROTH RENEWED CHRISTY VEST AND BILATERAL SOFT WRIST RESTRAINTS.
--- NOTE | 2020-07-24 03:26 | NUR ---
SHIFT SUMMARY PATIENT CONTINUED TO YELL/SCREAM UNTIL MIDNIGHT FROM START OF SHIFT. ALERT TO SELF WITH HX DEMENTIA. NO IV ACCESS. BARRIGA PATENT AND DRAINING TO GRAVITY. HOSPITALIST YOLANDE LOAN SERVICING OFFICER RENEWED CHRISTY VEST AND BILATERAL SOFT WRIST RESTAINTS. ZYPREXA GIVEN FOR AGITATION WITH NO EFFECT AT THIS TIME. PATIENT UNCOOPERATIVE AND NOT ABLE TO REORIENT AT THIS TIME. REPORTED BACK/NECK PAIN X ONE AND NORCO GIVEN PER EMAR. VSS/AFEBRILE. DENIES SOB AND N/V. BED IN LOWEST POSITION AND ON CAMERA. WILL CONTINUE TO MONITOR UNTIL DAY SHIFT NURSE ASSUMES CARE.
--- NOTE | 2020-07-24 06:12 | NUR ---
PATIENT SLEPT FROM MIDNIGHT TO 05:30. AWAKE AND IMMEDIATELY STARTS TO YELL OUT.
--- NOTE | 2020-07-24 19:19 | NUR ---
PT AWAKE AND ALERT THROUGHOUT SHIFT. ABLE TO ANSWER ORIENTATION QUESTIONS, BUT UNABLE TO FOLLOW DIRECTIONS. PT YELLING OUT CONSISTANTLY THROUGHOUT SHIFT. ATTEMPTED TO REMOVE WRIST RESTRAINTS SEVERAL TIMES WITH PT PULLING AT CATHETER AND JUMPIMG OUT OUT OF BED. SHE IS ABLE TO SLIP OUT OF WRIST RESTRAINT SEVERAL TIMES. BARRIGA CATHETER IS DRAINING YELLOW URINE TO GRAVITY. APPETITE GOOD WITH BM TODAY. REDNESS TO BL GLUTEAL CLEFT AND COCCYX. BARRIER CREAM APPLIED. NO IV. DENIES PAIN. REPORT GIVEN TO BILLY NETTLES
--- NOTE | 2020-07-24 22:59 | NUR ---
ASSUMPTION OF CARE. BRIAN IS ABLE TO ANSWER PART OF THE ORIENTATOIN QUESTIONS BUT HER SHORT TERM MEMORY IS FLAWED. SHE WILL CALL OUT NONE STOP FOR HELP WHEN NO ONE IS IN THE ROOM. SHE PERFERS S-cubism. ATTEMPTED BED PAIN, NO RESULTS. NO PAIN NOTED. ASSISTED WITH DRINK SEVERAL TIMES, AND REPOSITIONING. CURRENTLY RESTING WITH RESTRAINTS ON FOR SAFETY. WILL CONTINUE TO MONITOR, CALL LIGHT IN REACH.
--- NOTE | 2020-07-25 05:51 | NUR ---
SHIFT SUMMARY: AOX2, CONFUSED, FORGETFUL. CONSTANTLY YELLING OUT FOR HELP EVERY 5 MINUTES JUST TO GET SOMEONE IN THE ROOM TO TALK TO. IN CHRISTY AND SOFT WRIST RESTRAINTS TILL 2300 WHEN SOFT WRIST RESTRAINTS WERE REMOVED A TEST RUN, SHE STAYED AWAKE FOR SHORT PERIOD THEN FELL ASLEEP. SHE HAS SLEPT WELL THE REST OF SHIFT, THEREFORE DID NOT WAKE HER TO PUT THEM BACK ON. TALKED WITH CHARGE NURSE REGARDING CONCERN THAT IT MAY BE NEEDED ONCE SHE WAKES UP. DISCUSSED DC WRIST RESTRAINTS, IF NEEDED DAY SHIFT CAN PUT IT BACK ON. VSS/AFEBRILE. NO PAIN. GOOD APPETITE. BARRIGA PATENT AND DRAINING. BED/TAB ALARM. WILL REPORT TO PHANI RN.
--- NOTE | 2020-07-25 16:38 | NUR ---
SHIFT SUMMARY PATIENT MEDICATED X1 FOR PAIN. PATIENT DENIES NAUSEA AND SHORTNESS OF BREATH. PATIENT SLEPT UNTIL EARLY AFTERNOON. PATIENT CONTINUOUSLY CALLING OUT AND CLIMBS OUT OF BED WHEN AWAKE. PATIENT FREQUENTLY REDIRECTED. PATIENT WANTING STAFF TO SIT IN ROOM WITH HER. MEDICATED X3 FOR AGITATION/ANXIETY. BARRIGA PATENT AND DRAINING. POOR APPETITE. UP X2 ASSIST TO BSC TWICE.
--- NOTE | 2020-07-25 23:53 | NUR ---
ASSUMPTION OF CARE. BRIAN HAS BEEN SEVERELY ANXIOUS. TRYING TO JUMP OUT OF BED, PULLING AT HER RESTRAINTS, YELLING NONE STOP EVEN WHEN SOMEONE IS IN THE ROOM. KICKING HER FEET, THROWING THINGS, GETTING ANGRY AND AGGRESIVE. CALLING FOR ANYTHING AND EVERYTHING EVEN THINGS SHE DID NOT NEED. SHE STATES SHE CAN NOT HELP IT THE ANXIETY IS TO MUCH TO HANDLE, SHE KICKED HER FEET AND TRIED JUMPING OVER THE RAILS OF HER BED. IF IT WAS NOT FOR THE CHRISTY SHE WOULD HAVE BEEN ON THE FLOOR SO MANY TIMES TONIGHT. SHE HAD SEVERAL ZYPREXA TODAY WHICH SEEMED TO CAUSE MORE ANXIETY THEN IT DID CALM HER DOWN. HAD TO GIVE THE SEREQUEL EARLY JUST TO TO START TO CALM HER DOWN BEFORE SHE HURT HERSELF. CALLED HOSPITALIST, GOT ZYPREXA DC'D, INFORMED HER I GAVE SEREQUEL EARLY. SHE PERFERS TO WAIT TO SEE IF THAT WORKS BEFORE GIVING ANYTHING ELSE. ONLY CHANGE WAS SHE WAS SLIGHTLY DROWSY, BUT ALL THE BEHAVIOR CONTINUED. HAD TO TAKE AWAY HER TABLE, SO SHE WOULD STOP BAGGING. HAD TO LOCK OUT CONTROLS SHE CONTINUES TO MESS WITH THEM. SPOKE TO DR. DE LOS SANTOS WHO WAS ON THE FLOOR AND GOT AN ORDER FOR ATIVAN AND HALDOL. BEFORE GIVING IT TO HER THE PATIENT FELL ASLEEP.
--- NOTE | 2020-07-26 05:32 | NUR ---
SHIFT SUMMARY: START OF SHIFT WAS VERY ROUGH, BRIAN WAS VERY ANXIOUS. SHE CONSTANTLY YELLED AND SCREAMED EVEN WHEN SOMEONE WAS IN THE ROOM, TRYING TO JUMP OUT OF BED, PULLING AGAINST HER RESTRAINTS, BANGING ON THE TABLE, MESSING WITH THE BED CONTROLS NONE STOP, AND KICKING HER FEET AND JUMPING LIKE SOMETHING JUST BITE HER. WHEN ASKED SHE SAID SHE COULD NOT HELP IT SHE IS SO ANXIOUS. GOT IN REPORT THAT SHE WAS GIVEN 3 ZYPREXA WITH NO CHANGE, WHICH MAY BE THE FACTOR TO WHY SHE IS 10 TIMES MORE ANXIOUS THEN NORMAL. THERE WAS EVEN TIMES SHE GOT AGGRESSIVE IF WE DID NOT HELP HER. HAD TO LOCK THE BED CONTROLS TO PREVENT HER FROM REPOSITIONING SELF WHERE SHE CAN UN-TIE THE RESTRAINTS, HAD TO TAKE THNIGS OFF HER TABLE THEN EVENTUALLY TOOK THE TABLE AWAY AND SAT IN THE ROOM WITH HER. STILL IT DID NOT CHANGE. GAVE SEREQUEL EARLY. INFORMED DR. ROSENBERG ABOUT CHANGE IN BEHAVIOR, SHE ASKED TO WAIT TO SEE HOW THE SEREQUEL WORKS. ONLY CHANGE WAS SHE GOT SLIGHTLY DROWSY. THIS BEHAVIOR WENT ON TILL DR. MARINO WAS ON THE FLOOR, GAVE ORDER FOR HALDOL AND ATIVAN. SHE WAS PLACED ON THE BEDPAN AND BEFORE i COULD RETURN WITH THE ATIVAN SHE WAS FAST ASLEEP. EVEN WAS MOSTLY OUT OF IT WHEN REMOVING HER OFF THE BEDPAN. RESTRAINT ORDER WAS RENEWED WITH 4 RAILS UP AND CHRISTY. ALLOWED PATIENT TO SLEEP, DID NOT WAKE FOR AM VITALS, FIRST SET WAS WNL. SEVERAL LOOSE BM AT START OF SHIFT. BARRIGA REMAINS PATIENT AND DRAINING. MEDICATED FOR PAIN X1. CALL LIGHT IN REACH, BED ALARM ON. WILL REPORT TO DAYSHIFT.
--- NOTE | 2020-07-26 16:20 | NUR ---
SHIFT SUMMARY PATIENT AGITATED AND CALLING OUT AT SHIFT CHANGE. CALL TO DOCTOR SITA AND MESSAGE LEFT FOR DOCTOR JUSTIN. NEW ORDER FOR PO SEROQUEL FROM DOCTOR DENI. NEW ORDERS FROM DOCTOR ANDERSON FOR HALDOL/BENADRYL/ATIVAN. PO SEROQUEL GIVEN TO GOOD EFFECT. PATIENT CALM AND NAPPING ON AND OFF UNTIL 1500. PATIENT UP TO RECLINER VIA SBA. PATIENT BECAME AGITATED AND CALLING OUT AFTER WAKING UP. FREQUENTLY REDIRECTED BUT CONTINUED YELLING SOON STAFF LEFT ROOM.
--- NOTE | 2020-07-26 18:24 | NUR ---
JOCELIN CALL TO DR. BUCKNER TO DISCUSS PATIENT'S AGITATION. NEW ORDER FOR IM HALDOL ONCE.
--- NOTE | 2020-07-26 19:40 | NUR ---
ASSUMPTION OF CARE. BRIAN IS CALMER THAN SHE HAS BEEN THE LAST FEW NIGHTS, STILL CALLING OUT BUT NOT LOUD USUAL. SHE HAS BANGED ON THE TABLE TO GET ATTENTION AND THROWN HER CALL LIGHT. SHE ALSO HAS THROWN HER LEGS OFF THE BED TO SET OFF THE ALARM BUT ONCE SOMEONE GOES INTO HER ROOM SHE HAS THEN BACK IN. RESTRAINTS CHECKED, CIRCULATION GOOD. ATTENDS DRY. DRINK IN REACH. CATHETER PATENT AND DRAINING. CALL LIGHT IN REACH.
--- NOTE | 2020-07-26 21:00 | NUR ---
PM MEDS GIVEN. BRIAN IS FINDING THINGS TO HAVE SOMEONE IN THE ROOM. SHE IS STILL CALLING OUT WITH OCCATIONAL YELLING. ONCE SHE COULD NOT FIND ANYTHING SHE DID ASK IF I COULD STAY WITH HER. OFFERED HER COLORING PAGES, BOOK, CARDS, TV, MUSIC NOTHING HELPED TO DISTRACT HER. SHE WAS NICE WHEN I TOLD HER I HAD TO GO CHECK ON THE OTHER PATIENTS.
--- NOTE | 2020-07-26 21:47 | NUR ---
BRIAN NOT CALLING OUT MUCH IN THE LAST 30 MINUTES. STILL SAYING "COME ON" WHEN ASKED WHAT SHE MEANS BY COME ON, SHE SAYS SHE DOES NOT KNOW, SHE JUST HAS TO SAY IT. ADMINISTERED THE SEREQUEL. FLUSHED IN FACE. GAVE COOL RAG AND PLACED FAN ON HER. RESTRAINTS CHECKED. BED ALARM ON. CALL DEANNAHT IN REACH. FILLED HER WATER.
--- NOTE | 2020-07-27 05:39 | NUR ---
SHIFT SUMMARY: IMPROVEMENT IN BEHAVIOR TONIGHT. WAS NOT YELLING OUR MUCH, SAY A 90% DECREASE IN THAT BEHAVIOR. STILL BANGED ON TABLE A FEW TIMES AND CALLED OUT BUT IN A MORE REASONABLE MANOR. STILL AFRAID OF BEING ALONE, WANTING SOMEONE IN THE ROOM OFTEN. APPEARED TO HOLD MEMORY A LITTLE LONGER THEN BEFORE. STILL IN CHRISTY VEST AND 4 RAIL RESTRAINTS. ATTEMPTING TO GET OUT OF BED A FEW TIMES SETTING OFF ALARM. AFTER TAKING THE PM DOSE OF SEREQUEL 150MG. SHE WENT TO SLEEP AND HAS BEEN SLEEPING WELL SINCE THEN. RASH TO GROIN AND UNDER BREAST STILL VERY RED AND ANGRY. NYSTATIN APPLIED, MAY BENIFIT FROM NYSTATIN POWDER INSTEAD. VSS/AFEBRILE. NO PAIN. BED ALARM ON, CALL LIGHT IN REACH. WILL REPORT TO DAY SHIFT.
--- NOTE | 2020-07-27 19:45 | NUR ---
SHIFT SUMMARY PT SLEPT TILL 1330. WHEN PT WOKEUP SHE WAS AGITATED. PT WAS GIVEN MORNING SEROQUEL AT 1358. PT BEGAN TO PULL ON BARRIGA, THREW WATER AT INSPECTOR SHEET METAL PARTS AND TISSUES BOX AT THIS RN, AND TRIED TO GET OUT OF BED MULTIPLE TIMES I CALLED DR BUCKNER AND RECEIVED ORDERS FOR SOFT WRIST RESTRAINTS. PT HAD AUDITORY HALLUATIONS DURING SHIFT. PT REQUESTED TO USE BED ELDRIDGE BUT ONCE ON BED ELDRIDGE WANTED TO GET OFF RIGHT AWAY. PT BARRIGA DRAING TO GRAVITY.
--- NOTE | 2020-07-28 05:31 | NUR ---
SHIFT SUMMARY PATIENT ALERT AND ORIENTED X2. HAD NO COMPLAINTS OF PAIN OR SHORTNESS OF BREATH. IS ANXIOUS AND CONTINUALLY TRYING TO GO SOMEWHERE WHEN AWAKE, BUT PLEASANT AND COOPERATIVE. PATIENT SLEPT WELL OVERNIGHT. BARRIGA PATENT AND DRAINING TO GRAVITY. BED IN LOWEST POSITION WITH WHEELS LOCKED AND ALARM ON. RESTRAINTS STILL IN PLACE. CALL LIGHT WITHIN REACH. REPORT GIVEN TO ONCOMING RN.
--- NOTE | 2020-07-28 14:36 | NUR ---
SHIFT SUMMARY PT SLEEPING AT START OF SHIFT AND UNTIL AFTER BREAKFAST. PT THEN AWAKE AND HAS BEEN ACTIVE EVER SINCE. PT IN A HURRY TO GO SOMEWHERE. BLADDER TRAINING STARTED AT 0730 THIS AM, IN AN ATTEMPT TO D/C BARRIGA CATH. PT IS INCONTINENT OF URINE WITH RETENSION. PT ATE WELL AT LUNCH, WITH FEEDING ASSIST. PT HAS CONTINUED TO TRY AND GET OOB SINCE WAKING UP. PT ABLE TO GET LEGS OVER RAILS AND ONTO FLOOR. PT IS VERY BUSY. UNABLE TO ORIENT AT ALL. MEDICALLY STABLE. WAITING PLACEMENT. CALL LT IN REACH.
--- NOTE | 2020-07-29 05:01 | NUR ---
SHIFT SUMMARY ASSUMED CARE OF PT AT 1900. PT IS ALERT BUT NOT ORIENTED. PT WAS YELLING OUT INTO HALLWAY "LORD ALESSANDRA CANELA" AND ASKED TO GET INTOBED. ONCE PT WAS IN BED, PT CONTINUED TO YELL AND ATTEMPTED TO GET BACK OUT OF BED. PT WAS NOT EASILY DETERED SO CHRISTY REMAINED ON T/O THE NIGHT. PT CATHETER WAS PULLED AT 1500 5/7, BLADDER SCAN AT 2300 SHOWED 120CC OF URINE. PT DRANK 720ML OF LIQUIDS. PT HAS REDNESS IN HER PERFOLDS AND UNDER HER BREASTS, MEDICATED PER EMAR. PT WAS ABLE TO GET A COUPLE HOURS OF SLEEP THIS EVENING BUT WAS AWAKE MOST OF THE NIGHT. CALL LIGHT IN REACH, BED IN LOWEST POSTION.
--- NOTE | 2020-07-29 17:46 | NUR ---
SHIFT SUMMARY PATIENT ALERT, ORIENTED TO SELF THIS SHIFT. PATIENT REMAINS IN CHRISTY DUE TO IMPULSIVENESS WITHOUT THE ABILITY TO STAY ORIENTED. PATIENT LAYING IN BED THROUGHOUT THIS SHIFT, FREQUENTLY SWINGS HER LEGS OFF THE SIDE OF THE BED. PATIENT CALLING OUT LESS FREQUENTLY THAN PREVIOUS SHIFTS. PATIENT NAPPED FOR 2-3 HOURS LATE THIS AM. PATIENT CURRENTLY ON THE PHONE WITH FAMILY MEMBER.
--- NOTE | 2020-07-30 04:19 | NUR ---
SHIFT SUMMARY ASSUMED CARE OF PT AT 1900. PT IS ALERT BUT NOT ORIENTED. HEART SOUNDS REGULAR, LOUNG SOUNDS CLEAR. PT WAS MORE TIRED THIS EVENING EVIDENCED BY LESS CALLING OUT AND MORE WATCHING TV. PT WAS ANXIOUS UNTIL ABOUT 0000 WHEN SHE FELL ASLEEP AND HAS BEEN ASLEEP SINCE. PT WAS BLADDER SCANNED AT 2200 WHICH SHOWED 809, PT WAS THEN STRAIGHT CATHED AND 830 CAN OUT. PT HAS BEEN HAVING LOOSE STOOLS. NO ACUTE EVENTS DURING THE NIGHT. CALL LIGHT IN REACH, BED IN LOWEST POSITON.
--- NOTE | 2020-07-30 17:05 | NUR ---
SHIFT SUMMARY PATIENT ALERT, ORIENTED TO SELF THIS SHIFT. PATIENT REMAINS IN CHRISTY AND 4 RAILS DUE TO IMPULSIVENESS WITHOUT ABILITY TO REORIENT. PATIENT CALM AND COOPERATIVE THIS SHIFT. PATIENT SLEPT THROUGH MUCH OF THIS SHIFT, LAYING CALMLY IN BED WATCHING TELEVISION WHEN NOT SLEEPING. PATIENT UP 2X WITH ASSISTANCE TO THE BSC. PATIENT CURRENTLY SITTING UP IN BED WATCHING TELEVISION.
--- NOTE | 2020-07-31 04:11 | NUR ---
SHIFT SUMMARY ASSUMED CARE OF PT AT 1900. PT IS A/OX1. HEART SOUNDS REGULAR, LUNG SOUNDS CLEAR. PT IS MORE CALM THIS EVENING THATN LAST. PT WILL CARRY OUT A SIMPLE CONVERSATIONS WITH YES AND NO ANSWERS. PT WAS BLADDER SCANNED WHICH SHOWED 458CC. PT HAS REDNESS IN MARK AREA AND UNDER BREASTS. MEDICATED PER EMAR. PT SLEPT T/O THE NIGHT. CALL LIGHT IN REACH, BED IN LOWEST POSITION.
--- NOTE | 2020-07-31 10:40 | NUR ---
PT HAS BEEN DIFFIUCLT TO FULLY AROUSE THIS AM. OPENS EYES WITH PHYSICAL STIMULI, THEN WILL CLOSE THEM WITHOUT RESPONDING WITHIN ONE MINUTE. UPPER EXTREMTIES SOMEWHAT RIGID WITH ROM. NO S/SX OF DISCOMFORT OR DISTRESS. UNABLE TO GIVE PO AM MEDS. WCTM.
--- NOTE | 2020-07-31 14:42 | NUR ---
PT DIFFICULT TO AROUSE ALL AM. BED BATH COMPLETED JUST PRIOR TO LUNCH AND PT BECAME MORE ALERT TO BASELINE. YOON LOWRY FROM [facility] IN TO ASSESS PT FOR POSSIBLE PLACEMENT AFTER PT BECAME MORE ALERT, HER ONLY CONCERN WAS THAT PT WAS REQUIRING STRAIGHT CATH FOR RETENTION AND THAT HER CAREGIVER STAFF ARE NOT QUALIFIED TO DO THIS SKILL. 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 PT ATE LUNCH WITH ASSISTANCE.
--- NOTE | 2020-07-31 18:18 | NUR ---
PT ALERT THROUGHOUT THE REST OF THE SHIFT, ORIENTATED TO SELF AND THAT SHE IS IN THE HOSPITAL ONLY. PT BLADDER SCANNED AT APPROXIMATELY 1230, SCAN REVEALED VOLUME OF 180 ML. PT THEN HAD MODERATE INCONTINENT VOID IN BRIEF AT 1600, NO STRAIGHT CATH REQUIRED THIS SHIFT. PT CONTIUES WITH RIGIDITY OF EXTREMITIES AND SPASTIC MOVEMENTS WHILE ALERT. PT REQUIRED ASSISTANCE WITH BOTH MEAL DUE TO SPASTIC MOVEMENTS. PT DENIES PAIN, SOB, N/V. PT CONTINUES TO ATTEMPT TO GET OOB, CHRISTY VEST AND [address] NO OTHER CHANGES OR CONCERNS.
--- NOTE | 2020-08-01 05:24 | NUR ---
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 SHE ROCKS SELF IN BED IF TO GAIN MOMENTUM TO LAUNCH ON TO FLOOR. SHE IS MOSTLY NONVERBAL TONIGHT DOES NOT USE CALLBELL. ABLE TO DRINK & FEED SELF WITH SETUP. lIKED ENSURE ORIGINAL & SPILLED FLUID IF SHE DID NOT CARE FOR IT. PT INCONTINENT OF LARGE SAMT OF URINE X 1 HAD BLADDER SCANNED FOR 363 ML WITH NO VOID PRIOR TO SCAN. HAS ORDER TO PLACE BARRIGA CATH FOR RETENTION TO FACILITATE DC PLAN. dID NOT PLACE SHE DIDNT HAVE ENOUGH RETENTION TO QUALIFY FOR T CATH PER BLADDER SCAN. COOPERATIVE WITH MEDS WHOLE IN [place].
--- NOTE | 2020-08-01 17:04 | NUR ---
NO ACUTE CHANGES TO PT. SHE WAS ABLE TO FEED SELF LUNCH. PT IS CONFUSED AND NON VERBAL MOST OF THE TIMES. SHE ATTEMPTS TO GET OUT OF BED FREQUENTLY. RESTRAINTS STILL IN PLACE. PT IS REDIRECTABLE AND COOPERATIVE WITH CARE. CALL LIGHT WITHIN REACH.
--- NOTE | 2020-08-02 06:42 | NUR ---
PT continues quiet but alert and awake most of night. She continues to require reji vest to prevent falls. Pt takes high joana drinks ensure 3 times in 12 hrs plus drinks large amts of water. She was incont of xtra vida volume of urine x 1 after declining toileting. Cooperative with meds. Minimal verbalizations
--- NOTE | 2020-08-02 16:22 | NUR ---
PT REMAINS CATATONIC WITH DOLL LIKE EXPRESSION . PT ABLE TO FEED SELF WITH SET UP BY STAFF. PT REMAINS IN RESTRAINTS SHE CONTINUES TO TRY TO GET OUT OF BED . NO ACUTE CHANGES. CALL LIGHT WITHIN REACH.
--- NOTE | 2020-08-03 06:00 | NUR ---
PT continues quiet & subdued. No outburst & no verbalization unless questioned , then she says yes or no. She continues with neuro problems with npvent shunt patent. She has spasticity in legs & rocks back & forth so required 4 side rails to prevent launching from bed. Jon vest in place to prevent falls. Voids several times incontinent. unable to void in bedpan.
--- NOTE | 2020-08-03 10:43 | NUR ---
SPEECH THERAPY NOTIFIED THIS RN THAT THE PATIENT WAS DIAPHORETIC. THIS RN ASSESSED THE PATIENT, TOOK A SET OF VITALS AND CALLED DR. STEWART'S CELL PHONE. DR. STEWART DID NOT ANSWER. A VOICEMAIL WAS LEFT WITH THE VITALS, AND CONCERNS. DR. STEWART WAS REACHED BY CELL PHONE AT 10:50. ORDERS FOR LABS, EKG AND BLOOD GLUCOSE WAS GIVEN.
[2020-08-03 11:08] LABS: BASOPHILS ABSOLUTE AUTO 0.06 K/mm3 (0.00-0.23); BASOPHILS PERCENT AUTO 1 % (0-2); EOSINOPHILS ABSOLUTE AUTO 0.05 K/mm3 (0.00-0.68); EOSINOPHILS PERCENT AUTO 1 % (0-6); Hematocrit 43.4 % (33.0-51.0); Hemoglobin 14.3 g/dL (11.5-16.0); IMMATURE GRAN ABSOLUTE AUTO 0.04 K/mm3 (0.00-0.10); IMMATURE GRAN PERCENT AUTO 0 % (0-1); LYMPHOCYTES ABSOLUTE AUTO 1.37 K/mm3 (0.84-5.20); LYMPHOCYTES PERCENT AUTO 14 % (21-46); MONOCYTES ABSOLUTE AUTO 0.81 K/mm3 (0.16-1.47); MONOCYTES PERCENT AUTO 8 % (4-13); Mean Corpuscular HGB 29.5 pg (26.0-34.0); Mean Corpuscular HGB Conc 32.9 g/dL (31.5-36.5); Mean Corpuscular Volume 90 fL (80-100); NEUTROPHILS ABSOLUTE AUTO 7.27 K/mm3 (1.96-9.15); NEUTROPHILS PERCENT AUTO 76 % (41-73); Platelet Count 248 K/mm3 (150-400); RDW Coefficient Variation 11.9 % (11.7-14.2); RDW Standard Deviation 38.5 fL (35.1-46.3); Red Blood Cell Count 4.85 M/mm3 (3.80-5.20)
[2020-08-03 11:47] LABS: Alanine Aminotransfer (ALT/SGP 42 U/L (12-78); Albumin, Blood 3.1 g/dL (3.4-5.0); Albumin/Globulin Ratio 0.7 (0.8-1.8); Alk Phos 81 U/L (50-136); Anion Gap 6 mmol/L (6-16); Aspartate Aminotrans (AST/SGOT 29 U/L (12-37); Bilirubin, Total 0.3 mg/dL (0.1-1.0); Blood Urea Nitrogen 24 mg/dL (8-24); Bun/Creatinine Ratio 29.4 (12.0-20.0); CO2, Blood 30 mmol/L (21-32); Calcium, Blood 9.4 mg/dL (8.5-10.1); Chloride, Blood 107 mmol/L (98-108); Creatinine, Blood 0.82 mg/dL (0.40-1.00); Globulin, Blood 4.4 g/dL (2.2-4.0); Glomerular Filtration Rate >60 (60-); Glucose, Blood 161 mg/dL (70-99); Magnesium, Blood 2.7 mg/dL (1.6-2.4); Phosphorus, Blood 3.3 mg/dL (2.5-4.9); Potassium, Blood 3.5 mmol/L (3.5-5.5); Sodium, Blood 143 mmol/L (136-145); Total Protein, Blood 7.5 g/dL (6.4-8.2); Troponin I <0.015 ng/mL (0.000-0.040)
--- NOTE | 2020-08-03 16:34 | NUR ---
PATIENT IS ALERT AND ORIENTED TO HER DAUGHTER. SHE HAS BEEN NONVERBAL TO STAFF THIS SHIFT BUT SHE HAS SPOKEN WITH HER DAUGHTER, DEBORAH OVER THE PHONE. SHE SPOKE IN SHORT SENTENCES AND REPLIED APPROPRIATELY. SHE WAS AWAKE FOR BREAKFAST, HAD SOME TROUBLE SWALLOWING. A SPEECH THERAPY EVALUATION WAS ORDERED, AND SPEECH THERAPY ULTIMATELY MADE THE PATIENT NPO TODAY BECAUSE SHE WAS SO SLEEPY FOLLOWING THE EVALUATION. FOLLOWING ST EVALUATION, THE PATIENT WAS NOTED TO BE DIAPHORETIC AND UNRESPONSIVE TO VERBAL STIMULI. DR. STEWART ORDERED EKG AND LABS. HER VITALS WERE STABLE. THE PATIENT SLEPT FOR A FEW HOURS AND IS NOW AWAKE. SHE SPOKE WITH HER DAUGHTER THIS AFTERNOON. SHE IS CURRENTLY ROCCKING BACK AND FORTH ON HER BACK IN BED. ATTENDS IN PLACE. WILL CONTINUE TO MONITOR
--- NOTE | 2020-08-04 06:30 | NUR ---
SHIFT SUMMARY PT IS A 65 Y/O FEMALE, ADMITTED FOR TOXIC METABOLIC ENCEPHALOPATHY. SHE IS A&O X 0, STARES OFF INTO SPACE AND WOULD NOT ANSWER QUESTIONS. PT HS MEDS HELD D/T PT'S AMS. PT CURRENTLY IN A CHRISTY VEST RESTRAINT, AND ROLLS SIDE TO SIDE IN BED AND TRIES TO THROW HER LEGS OVER THE SIDE RAILS. BEDREST, INCONTINENT. NO S/S OF ACUTE PAIN OR DISTRESS. VITAL SIGNS STABLE. NO ACUTE CHANGES IN PT CONDITION NOTED DURING THE NIGHT. WILL CONTINUE TO MONITOR AND TREAT PER EMAR UNTIL HAND OFF TO DAY SHIFT RN.
[2020-08-04] MEDS ORDERED: CARV25 PO (10:54)
[2020-08-04] MEDS ORDERED: BISA5EC PO (10:55)
[2020-08-04] MEDS ORDERED: AMLO5 PO (10:55)
[2020-08-04] MEDS ORDERED: ASPI81CH PO (10:55)
[2020-08-04] MEDS ORDERED: ZEBUTAL 50-3251 EAC1 PO (10:56)
[2020-08-04] MEDS ORDERED: LIDOCAINE1 EAC1 TOP (10:56)
[2020-08-04] MEDS ORDERED: MIRALAX17 GM PO (10:57)
[2020-08-04] MEDS ORDERED: NYSTATIN15 GM TOP (10:57)
[2020-08-04] MEDS ORDERED: Seroquel Xr50 MG PO ×2 (10:58)
--- NOTE | 2020-08-04 11:18 | NUR ---
REPORT CALLED TO YOON PHIPPS AT [facility]. DESIRE VERIFIED THAT THEY RECIEVED THE FAX INCLUDING HARD SCRIPT COPY, DICHARGE ORDERS AND MED REC.
--- NOTE | 2020-08-04 11:52 | NUR ---
PATIENT DISCHARGED AT 1151. [facility] IS TRANSPORTING THE PATIENT.
== END 2020-08-04 11:52 | disposition home or self-care (01) ==
LOC: ER 02:16 → ERHOLD 02:17 → MEDS 02:17 → ENPENDDIS 08-04 10:10 → MEDS 08-04 11:52
PROVIDERS: Emergency Medicine; Family Medicine; Internal Medicine; Internal Medicine Cardiovascular Disease; ADMIT Internal Medicine
DX: N39.0 Urinary tract infection, site not specified (principal); B95.1 Streptococcus, group B, as the cause of diseases classified elsewhere; F01.51 Vascular dementia, unspecified severity, with behavioral disturbance; J44.9 Chronic obstructive pulmonary disease, unspecified; E87.6 Hypokalemia; G35 Multiple sclerosis; I11.0 Hypertensive heart disease with heart failure; I50.9 Heart failure, unspecified; E87.0 Hyperosmolality and hypernatremia; R45.1 Restlessness and agitation; F17.210 Nicotine dependence, cigarettes, uncomplicated; G89.29 Other chronic pain; E87.1 Hypo-osmolality and hyponatremia; E86.0 Dehydration; I48.20 Chronic atrial fibrillation, unspecified; R90.82 White matter disease, unspecified; S00.03XA Contusion of scalp, initial encounter; X58.XXXA Exposure to other specified factors, initial encounter; I67.2 Cerebral atherosclerosis; E78.5 Hyperlipidemia, unspecified; I25.10 Atherosclerotic heart disease of native coronary artery without angina pectoris; Z88.1 Allergy status to other antibiotic agents; Z88.8 Allergy status to other drugs, medicaments and biological substances; Z20.822 Contact with and (suspected) exposure to COVID-19; Z29.8 Encounter for other specified prophylactic measures; Z86.79 Personal history of other diseases of the circulatory system; Z66 Do not resuscitate; Z86.59 Personal history of other mental and behavioral disorders; Z98.2 Presence of cerebrospinal fluid drainage device; Z95.0 Presence of cardiac pacemaker
CPT/HCPCS: 0241U; 36415; 51701; 51702; 70250; 70450; 71045; 74018; 80048; 80053; 80069; 81001; 82550; 82803; 82947; 83735; 84100; 84132; 84484; 85025; 85027; 87070; 87077; 87086; 87186; 87205; 92526; 92610; 93005; 93010; 94760; 96365; 96366; 96368; 96372; 96372-59; 96375; 97110; 97110-CQ; 97116; 97162; 97165; 97530; 97530-CQ; 97535; 99285-25; A9270; G0378; G0480; J0696; J1630; J1650; J2060; J3480; J7030; J7050; J7070